=== PATIENT | male | born 1940 | race Caucasian/White ===

== ENCOUNTER 2016-12-29 09:53 | Emergency (ER) | payer OTHER ==
[2016-12-29 10:00] VITALS: BP 124/55; PULSE 72; TEMP 97.7; BMI 18.2
--- NOTE | 2016-12-29 10:24 | PDOC ---
History of Present Illness - General History Source: Patient Exam Limitations: No Limitations - History of Present Illness Initial Comments: 12/29/16 10:32 The patient is a 76 year old female with significant past medical history of hypertension, hyperlipidemia, CAD, ESRD on hemodialysis / who presents to the ED with 1 day of right testicular pain. Patient reports he was watching television yesterday when he started to developed pain to the right testicular region. After using the bathroom, his pain worsened. He denies lifting heavy objects or trauma to the area. Patient states he completed his last dialysis session yesterday. The patient denies fever, chills, cough, SOB, chest pain, and palpitations. The patient denies abdominal pain, nausea, vomiting, and diarrhea. The patient denies dysuria, hematuria, urgency, and frequency. Allergies: NKDA Social History: No alcohol, tobacco, or drug use reported. Past Surgical History: CABG PCP: Dr. Negro Hidalgo Fountain Clerk: Dr. Mei Vascular Surgeon: Dr. Georges Hollingsworth <Danielle Mock - Last Filed: 12/29/16 10:36> <Tamanna Spencer - Last Filed: 12/29/16 21:14> - General Chief Complaint: Pain Stated Complaint: PAIN Time Seen by Provider: 12/29/16 10:01 Past History <Danielle Mock - Last Filed: 12/29/16 10:36> - Past Medical History Anemia: No Asthma: No Cancer: No Cardiac Disorders: Yes (cad) CVA: No COPD: No CHF: No Dementia: No Diabetes: No Dialysis: Yes (lt arm fistula, m-w-f h.d) GI Disorders: No Disorders: No HTN: No Hypercholesterolemia: No Liver Disease: No Seizures: No Thyroid Disease: No - Surgical History Abdominal Surgery: No Appendectomy: No Cardiac Surgery: Yes (quad bipass) Lung Surgery: No Neurologic Surgery: No Orthopedic Surgery: No - Immunization History Immunization Up to Date: No - Psycho/Social/Smoking Cessation Hx Anxiety: No Suicidal Ideation: No Smoking History: Never smoked Have you smoked in the past 12 months: Yes Number of Cigarettes Smoked Daily: 5 Information on smoking cessation initiated: No 'Breaking Loose' booklet given: 01/27/14 Hx Alcohol Use: No Drug/Substance Use Hx: No Substance Use Type: None <Tamanna Spencer - Last Filed: 12/29/16 21:14> - Past Medical History Allergies/Adverse Reactions: Allergies Allergy/AdvReac Type Severity Reaction Status Date / Time No Known Allergies Allergy Verified 12/29/16 09:54 Home Medications: Ambulatory Orders Pantoprazole Sodium [Protonix -] 40 mg PO DAILY 03/14/16 Calcium (Oyster Shell) [Os-Reuben 500MG -] 500 mg PO BID #60 tablet 03/22/16 Calcium Acetate [Phoslo -] 667 mg PO TIDCM capsule 03/22/16 Atorvastatin Ca [Lipitor] 40 mg PO HS #30 tablet 05/02/16 Oxycodone HCl/Acetaminophen [Percocet 5-325 mg Tablet] 1 tab PO Q6H PRN #12 tablet MDD 4 tabs 12/29/16 Review of Systems - Review of Systems Able to Perform ROS?: Yes Comments:: 12/29/16 10:32 GENERAL/CONSTITUTIONAL: No fever or chills. No weakness. HEAD, EYES, EARS, NOSE AND THROAT: No change in vision. No ear pain or discharge. No sore throat. CARDIOVASCULAR: No chest pain or shortness of breath. RESPIRATORY: No cough, wheezing, or hemoptysis. GASTROINTESTINAL: No nausea, vomiting, diarrhea or constipation. GENITOURINARY: +right testicular pain No dysuria, frequency, or change in urination. MUSCULOSKELETAL: No joint or muscle swelling or pain. No neck or back pain. SKIN: No rash NEUROLOGIC: No headache, vertigo, loss of consciousness, or change in strength/ sensation. ENDOCRINE: No increased thirst. No abnormal weight change. HEMATOLOGIC/LYMPHATIC: No anemia, easy bleeding, or history of blood clots. ALLERGIC/IMMUNOLOGIC: No hives or skin allergy. <Danielle Mock - Last Filed: 12/29/16 10:36> *Physical Exam - Vital Signs Last Vital Signs Temp Pulse Resp BP Pulse Ox 97.7 F 72 18 124/55 97 12/29/16 09:54 12/29/16 09:54 12/29/16 09:54 12/29/16 09:54 12/29/16 09:54 - Physical Exam Comments: 12/29/16 10:33 GENERAL: Awake, alert, and fully oriented, in mild distress and appears uncomfortable HEAD: No signs of trauma EYES: PERRLA, EOMI, sclera anicteric, conjunctiva clear ENT: Auricles normal inspection, hearing grossly normal, nares patent, oropharynx clear without exudates. Moist mucosa NECK: Normal ROM, supple, no lymphadenopathy, JVD, or masses LUNGS: Breath sounds equal, clear to auscultation bilaterally. No wheezes, and no crackles HEART: Regular rate and rhythm, normal S1 and S2, no murmurs, rubs or gallops ABDOMEN: Soft, nontender, normoactive bowel sounds. No guarding, no rebound. No masses : Right testicular swelling and exquisite tenderness EXTREMITIES: Normal range of motion, no edema. No clubbing or cyanosis. No cords, erythema, or tenderness NEUROLOGICAL: Cranial nerves II through XII grossly intact. Normal speech SKIN: Warm, Dry, normal turgor, no rashes or lesions noted. <Danielle Mock - Last Filed: 12/29/16 10:36> - Vital Signs Last Vital Signs Temp Pulse Resp BP Pulse Ox 97.7 F 72 18 124/55 97 12/29/16 09:54 12/29/16 09:54 12/29/16 09:54 12/29/16 09:54 12/29/16 09:54 <Tamanna Spencer - Last Filed: 12/29/16 21:14> ED Treatment Course - LABORATORY CBC & Chemistry Diagram: 12/29/16 10:37 12/29/16 10:37 <Tamanna Spencer - Last Filed: 12/29/16 21:14> Medical Decision Making - Medical Decision Making Ultrasound results discussed with patient. Recommended outpatient urology f/u to address the hydroceles. Rx for percocet if needed for pain. Stable for DC home. <Tamanna Spencer - Last Filed: 12/29/16 21:14> *DC/Admit/Observation/Transfer - Attestations Scribe Attestion: 12/29/16 10:33 Documentation prepared by Danielle Mock, acting as medical imaging director for Tamanna Spencer MD, MD <Danielle Mock - Last Filed: 12/29/16 10:36> - Discharge Dispostion Admit: No <Tamanna Spencer - Last Filed: 12/29/16 21:14> Diagnosis at time of Disposition: Hydrocele Qualifiers: Hydrocele type: unspecified Qualified Code(s): N43.3 - Hydrocele, unspecified - Discharge Dispostion Disposition: HOME Condition at time of disposition: Stable - Prescriptions Prescriptions: Oxycodone HCl/Acetaminophen [Percocet 5-325 mg Tablet] 1 tab PO Q6H PRN #12 tablet MDD 4 tabs PRN Reason: Pain - Referrals Referrals: Negro Hidalgo MD [Primary Care Provider] - Buddy Cornelius MD [Staff Physician] - - Patient Instructions Printed Discharge Instructions: DI for Hydrocele-Adult
[2016-12-29] MEDS ORDERED: morphine CARPU-JECT 4 MG/1 ML DISP.SYRIN IVPUSH ONE (10:26)
[2016-12-29] MEDS ORDERED: morphine CARPU-JECT 4 MG/1 ML DISP.SYRIN ONE (10:38)
[2016-12-29 10:55] LABS: BASOPHIL 0.4 % (0-2.0); EOSINOPHIL 0.3 % (0-4.5); MCH 32.2 pg (25.7-33.7); MCHC 33.7 g/dl (32.0-35.9); MEAN CELL VOLUME 95.3 fl (80-96); MEAN PLT VOLUME 8.2 fl (7.5-11.1); NEUTROPHILS 79.1 % (42.8-82.8); PLATELET COUNT 174 K/MM3 (134-434); RDW 14.7 % (11.9-15.9); WHITE BLOOD COUNT 10.4 K/mm3 (4.0-10.0)
[2016-12-29 11:18] LABS: ALBUMIN 3.6 g/dl (3.4-5.0); BILIRUBIN,TOTAL 0.8 mg/dL (0.2-1.0); CALCIUM 8.9 mg/dL (8.5-10.1); TOT PROT 7.2 g/dl (6.4-8.2)
[2016-12-29 11:23] LABS: INR 1.08 (0.82-1.09); PROTHROMBIN TIME (PATIENT) 11.9 SEC (9.98-11.88)
[2016-12-29 11:36] LABS: CREATININE 8.7 mg/dL (0.7-1.3)
== END 2016-12-29 12:40 | disposition home or self-care (01) ==
LOC: JER 09:53
PROC: 3E033NZ Introduction of Analgesics, Hypnotics, Sedatives into Peripheral Vein, Percutaneous Approach (ICD-10-PCS; principal; 2016-12-29)
DX: N43.3 Hydrocele, unspecified (principal); I25.10 Atherosclerotic heart disease of native coronary artery without angina pectoris; I13.11 Hypertensive heart and chronic kidney disease without heart failure, with stage 5 chronic kidney disease, or end stage renal disease; N18.6 End stage renal disease; Z99.2 Dependence on renal dialysis; Z95.1 Presence of aortocoronary bypass graft; Z87.891 Personal history of nicotine dependence; E78.5 Hyperlipidemia, unspecified; E78.00 Pure hypercholesterolemia, unspecified
CPT/HCPCS: 36415; 76870-TC; 80053; 83605; 85025; 85610; 96374; 99283-25

== ENCOUNTER 2018-06-03 16:00 | Inpatient (IN) | payer OTHER ==
[2018-06-03 16:20] VITALS: BMI 20.7
--- NOTE | 2018-06-03 16:22 | PDOC ---
Rapid Medical Evaluation Chief Complaint: Weakness Time Seen by Provider: 06/03/18 16:14 Medical Evaluation: Allergies Allergy/AdvReac Type Severity Reaction Status Date / Time No Known Allergies Allergy Verified 06/03/18 16:14 Vital Signs Temp Pulse Resp BP Pulse Ox 97.5 F L 67 20 164/88 95 06/03/18 16:14 06/03/18 16:14 06/03/18 16:14 06/03/18 16:14 06/03/18 16:14 06/03/18 16:20 I have performed a brief in-person evaluation of this patient. The patient presents with a chief complaint of: fatigue and chest pain X 2 days , ESRD on HD, known CAD with CABG Pertinent physical exam findings:ill appearing with coarse rhonchi in lung bases I have ordered the following:ekg, labs and cxr ordered The patient will proceed to the ED for further evaluation. Discharge Disposition - Diagnosis Chest pain Qualifiers: Chest pain type: unspecified Qualified Code(s): R07.9 - Chest pain, unspecified - Referrals - Patient Instructions - Post Discharge Activity
--- NOTE | 2018-06-03 16:35 | PDOC ---
History of Present Illness - General Chief Complaint: Weakness Stated Complaint: ELEVATED BP, DIZZINESS Time Seen by Provider: 06/03/18 16:14 History Source: Patient, Family Exam Limitations: No Limitations - History of Present Illness Initial Comments: 77 y/o male presenting to [facility] ED via private auto with chief complaints of generalized weakness and new onset exertional chest pain. Pt states he began to feel generalized weakness and global lack of energy since dialysis run yesterday. States he may have blacked out but denies falling to floor or other trauma; family endorses that the pt stated similar to them. Complaining of exertional chest pain with shortness of breath for the past two days. Pain originates in mid-chest and radiates to jaw, both arms, and abdomen. Able to lay flat at night, no pretibial edema, but endorses paroxysmal nocturnal dyspnea. H/o CAD w/ cardiac bypass surgery 2 years ago. Complaining of nausea/vomiting/diarrhea; described as acute on chronic for past two years; current episode lasting approx. 1 week; described as non-bloody. Was previously admitted to [facility] for similar one month ago. H/o ESRD on dialysis M, W, F; last run yesterday; normal 1-2L full run. H/o EtOH abuse; still drinking occasionally per family. Family states pt is taking an antibiotic for GI symptoms; pharmacist reports pt received 4 days of Augmentin in April but no other abx. Complaining of spontaneous bruising on abdomen and lower extremities. Son noticed starting one week ago. Pt denies trauma. Pt occasionally takes baby ASA. Denies anti-coagulants. Past History - Past Medical History Allergies/Adverse Reactions: Allergies Allergy/AdvReac Type Severity Reaction Status Date / Time No Known Allergies Allergy Verified 06/03/18 16:14 Home Medications: Ambulatory Orders Calcium (Oyster Shell) [Os-Reuben 500MG -] 500 mg PO BID #60 tablet 03/22/16 Anemia: No Asthma: No Cancer: No Cardiac Disorders: Yes (cad) CVA: No COPD: No CHF: No Dementia: No Diabetes: No Dialysis: Yes (lt arm fistula, m-w-f h.d) GI Disorders: No Disorders: No HTN: No Hypercholesterolemia: No Liver Disease: No Seizures: No Thyroid Disease: No - Surgical History Abdominal Surgery: No Appendectomy: No Cardiac Surgery: Yes (quad bipass) Lung Surgery: No Neurologic Surgery: No Orthopedic Surgery: No - Immunization History Immunization Up to Date: No - Suicide/Smoking/Psychosocial Hx Smoking History: Former smoker Have you smoked in the past 12 months: No Number of Cigarettes Smoked Daily: 5 Information on smoking cessation initiated: No 'Breaking Loose' booklet given: 01/27/14 Hx Alcohol Use: No Drug/Substance Use Hx: No Substance Use Type: None Review of Systems - Review of Systems Able to Perform ROS?: Yes Is the patient limited Bengali proficient: No Constitutional: Yes: Chills, Diaphoresis, Malaise, Weakness. No: Fever HEENTM: Yes: Throat Pain. No: Blurred Vision, Recent change in vision, Mouth Pain Respiratory: Yes: Cough, Shortness of Breath, SOB with Exertion, Productive cough (Yellow sputum without color change. ). No: Orthopnea, SOB at Rest, Hemoptysis Cardiac (ROS): Yes: Chest Pain, Syncope, Chest Tightness. No: Edema, Lightheadedness, Palpitations ABD/GI: Yes: Diarrhea, Nausea, Vomiting, Abdominal cramping. No: Blood Streaked Bowels, Rectal Bleeding, Tarry Stools : Yes: Burning. No: Dysuria, Discharge, Frequency Musculoskeletal: Yes: Muscle Weakness Integumentary: Yes: Bruising. No: Rash Neurological: Yes: Headache, Tingling, Weakness, Unsteady Gait, Dizziness Hematologic/Lymphatic: No: Anemia, Blood Clots, Easy Bleeding *Physical Exam - Vital Signs Last Vital Signs Temp Pulse Resp BP Pulse Ox 97.5 F L 67 20 164/88 95 06/03/18 16:14 06/03/18 16:14 06/03/18 16:14 06/03/18 16:14 06/03/18 16:14 - Physical Exam Comments: Constitutional: Cachexic and sickly male appearing without acute life threat. Found semi-fowlers in hospital bed. Alert and oriented x4. Answered all questions but with vague and rambling with cantankerous affect. Speech was non- labored, non-pressured. Head: normocephalic and atraumatic. Eyes: PERRL. Sclerae white. Conjunctiva moist and not injected. NOSE: No nasal discharge. THROAT: Oral cavity and pharynx normal. No inflammation, swelling, exudate, or lesions. Teeth and gingiva in very poor condition. Neck: Supple, trachea is midline. No JVD. Cardiovascular: Regular rate and regular rhythm. No murmur, rubs, clicks, or gallops. Peripheral pulses: Radial pulses full Respiratory: Rhonchi with mild expiratory wheezing diffusely, worse in posterior lobes. No stridor. Gastrointestinal: abdomen is soft, non-distended, subjective tenderness globally without grimace, withdrawal, guarding, or rebound. No peritoneal signs. No pulsatile masses. Neuro: Alert and oriented. Moving all four extremities spontaneously. Psych: Affect: cantankerous. Mood: tired and angry. Skin: Warm and dry. Mild jaundice. Multiple small (1-2cm) round bruises covering epigastrum, upper abd quadrants, and on lower extremities; none on chest, arms, or head. Dialysis graft in upper left arm. Lymphatics: No cervical or supraclavicular nodes palpated. Rectal: Good sphincter tone with large non-bleeding external hemorrhoid. Prostate is not tender, enlarged, boggy, or nodular. RN chaperoned exam. Hemoccult card negative. ED Treatment Course - LABORATORY CBC & Chemistry Diagram: 06/03/18 17:10 06/03/18 17:10 Medical Decision Making - Medical Decision Making 77 y/o male with CAD s/p CABG, ESRD on hemodialysis, h/o EtOH abuse, acute on chronic nausea, vomiting, diarrhea presenting with laundry list of vague complaints, most concerning is exertional chest pain, SOB, and generalized weakness. Afebrile. Vitals remarkable for hypertension without tachycardia; no tachypnea or hypoxia. PE revealing for mild jaundice, rhonchi, and generalized non-peritoneal abdominal pain. Concern for ACS versus CHF in setting of cardiac history and anginal symptoms. HEART Score base of 5 w/o knowing troponin. Concern for liver failure with generalized fatigue, jaundice, and spontaneous bruising. Concern for metabolic disturbance causing fatigue and muscle pain. Concern for anemia given fatigue. Will obtain CBC, CMP, Calcium, Mag, Phos, Lipase, Lactic Acid, Coags, and troponin. Ordered EKG and CXR. 17:25 Multiple labs hemolyzed per lab. Reordered. CXR suggestive for CHF. Pt is not hypoxic or tachypnic at room air. Pharmacist reports pt was prescribed a four day course of Augmentin in April. No other antibiotic therapy. Monotype Caster confirmed pt is not receiving abx therapy with dialysis. Pt signed out to Dr. Masterson. Will follow up on pending labs. Continued concern for metabolic derangement versus liver failure versus angina versus CHF. Likely to admit for chest pain rule out. *DC/Admit/Observation/Transfer Diagnosis at time of Disposition: Chest pain Qualifiers: Chest pain type: unspecified Qualified Code(s): R07.9 - Chest pain, unspecified - Referrals Referrals: Negro Hidalgo MD [Primary Care Provider] - - Patient Instructions - Post Discharge Activity
--- NOTE | 2018-06-03 17:03 | PDOC ---
Attending Attestation - Physicial Exam PE: 06/03/18 17:57 ROS: A complete review of 10 out of 10 review of systems is taken and is negative apart from what is previously mentioned below and in the HPI. Vitals: Triage vital signs reviewed General Appearance: No acute distress, well nourished, well developed Head: Atraumatic Eyes: Pupils equal reactive round, extraocular movement intact Ears: TM's normal bilaterally Nose: Nares patent bilaterally; no nasal congestion Throat: Posterior oropharynx without erythema, mucous membranes moist Neck: Supple; No nuchal rigidity Chest Wall: Nontender Cardiac: Regular rate and rhythm, no murmurs, no rubs, no gallops Lungs: Clear to auscultation bilateral, good air movement bilaterally Abdomen: Soft, nondistended, normal bowel sounds, nontender to palpation Genitourinary: Rectal: Exam deferred Extremities: Full range of motion to all extremities, no cyanosis, clubbing, or edema Skin: Warm and dry, no rashes or lesions, no rash, no petechiae Neuro: AOX3; Cranial Nerves 2-12 grossly intact, Strength intact to all extremities, Sensation intact to all extremities, gait normal Psych: Normal mood, normal affect - Medical Decision Making 06/03/18 17:57 Documentation prepared by Alexus Coronado, acting as medical records tech for Khanh Morillo MD <Alexus Coronado - Last Filed: 06/03/18 17:57> - Resident Resident Name: Eddy Green - ED Attending Attestation I have performed the following: I have examined & evaluated the patient, The case was reviewed & discussed with the resident, I agree w/resident's findings & plan, Exceptions are as noted - HPI HPI: 75 years old past medical history significant for hypertension hyperlipidemia CAD end-stage renal disease on dialysis Saturday, past surgical history significant for CABG, presents to the emergency department with exertional chest discomfort and shortness of breath for the last several days. Substernal radiates to jaw's arms abdomen able to lie flat at night, symptoms are intermittent with exertion alleviated somewhat by rest Also complaining of chronic nausea vomiting diarrhea has been on antibiotics for this? Does not know name of antibiotic or exactly what is being treated for. - Medical Decision Making Patient with multiple risk factors. Heart score 5. Benign abdominal examination. We'll admit to medicine for further evaluation of chest pain and possible mild CHF. <Khanh Morillo - Last Filed: 06/03/18 19:31> Heart Score/ECG Review - ECG Impressions Comment:: 06/03/18 19:22 EKG performed at 1509. Demonstrates normal sinus rhythm no ST elevations or T- wave inversions Interpreted by me. <Khanh Morillo - Last Filed: 06/03/18 19:31>
[2018-06-03 17:17] LABS: HEMATOCRIT 33.1 % (35.4-49); HEMOGLOBIN 10.9 GM/dL (11.7-16.9); MCH 30.2 pg (25.7-33.7); MEAN CELL VOLUME 91.4 fl (80-96); MEAN PLT VOLUME 9.8 fl (7.5-11.1); PLATELET COUNT 124 K/MM3 (134-434); RBC 3.62 M/mm3 (4.00-5.60); RDW 18.3 % (11.9-15.9); WHITE BLOOD COUNT 5.7 K/mm3 (4.0-10.0)
[2018-06-03 17:42] LABS: INR 1.09 (0.82-1.09); PROTHROMBIN TIME (PATIENT) 12.3 SEC (9.7-13.0)
--- NOTE | 2018-06-03 19:22 | PDOC ---
*Physical Exam - Vital Signs Last Vital Signs Temp Pulse Resp BP Pulse Ox 97.5 F L 67 20 164/88 95 06/03/18 16:14 06/03/18 16:14 06/03/18 16:14 06/03/18 16:14 06/03/18 16:14 - Physical Exam Comments: 06/03/18 19:17 Care endorsed to me by Dr. Green at the end of his shift. Medically CAD a/p CABG 2 years ago, ESRD on HD MWF with last tx yesterday, EtOH dependence, c/o new-onset CP with associated SOB as well as PND, no leg edema. All-over body aches. Also Also c/o bruising on upper abdomen, BLE. N/V/D (NBNB) which is chronic but worsened x1 week. Was on Augmentin in April. CXR with e/o CHF. Mild anemia on CBC, mild leukopenia. Pending chemistries (first set hemolyzed). To be admitted. Heart Score/ECG Review - History History: Highly suspicious - Electrocardiogram EKG: Normal - Age Age: >/= 65 - Risk Factors Risk Factors Heart Score: Yes Hx Hypercholesterolemia, Yes Hx Hypertension, Yes Smoking History, Yes Positive family hx of cardiac disease Based on the list above the patient has:: >/=3 risk factors or Hx atherosclerotic disease #1 06/03/18 19:21 SR with RBBB and no acute ST-T changes. ED Treatment Course - LABORATORY CBC & Chemistry Diagram: 06/03/18 17:10 06/03/18 18:15 - ADDITIONAL ORDERS Additional order review: Laboratory Results 06/03/18 06/03/18 06/03/18 18:20 18:15 17:10 PT with INR INR PTT (Actin FS) 31.3 Sodium Potassium Chloride Carbon Dioxide Anion Gap BUN Creatinine Creat Clearance w eGFR Random Glucose Calcium Total Bilirubin AST ALT Alkaline Phosphatase Creatine Kinase Troponin I Total Protein Albumin Lipase Cancelled Stool Occult Blood Negative 06/03/18 06/03/18 17:10 17:10 PT with INR 12.30 INR 1.09 PTT (Actin FS) Sodium Cancelled Potassium Cancelled Chloride Cancelled Carbon Dioxide Cancelled Anion Gap Cancelled BUN Cancelled Creatinine Cancelled Creat Clearance w eGFR Cancelled Random Glucose Cancelled Calcium Cancelled Total Bilirubin Cancelled AST Cancelled ALT Cancelled Alkaline Phosphatase Cancelled Creatine Kinase Cancelled Troponin I Cancelled Total Protein Cancelled Albumin Cancelled Lipase Stool Occult Blood 06/03/18 17:10 RBC 3.62 L MCV 91.4 MCHC 33.0 RDW 18.3 H MPV 9.8 D Medical Decision Making - Medical Decision Making 06/03/18 19:56 Laboratory Tests 06/03/18 06/03/18 06/03/18 17:10 17:10 17:10 WBC 5.7 RBC 3.62 L Hgb 10.9 L Hct 33.1 L MCV 91.4 MCH 30.2 MCHC 33.0 RDW 18.3 H Plt Count 124 L D MPV 9.8 D PT with INR 12.30 INR 1.09 PTT (Actin FS) Sodium Cancelled Potassium Cancelled Chloride Cancelled Carbon Dioxide Cancelled Anion Gap Cancelled BUN Cancelled Creatinine Cancelled Creat Clearance w eGFR Cancelled Random Glucose Cancelled Lactic Acid Calcium Cancelled Total Bilirubin Cancelled AST Cancelled ALT Cancelled Alkaline Phosphatase Cancelled Creatine Kinase Cancelled Troponin I Cancelled Total Protein Cancelled Albumin Cancelled Lipase Stool Occult Blood 06/03/18 06/03/18 06/03/18 17:10 18:15 18:15 WBC RBC Hgb Hct MCV MCH MCHC RDW Plt Count MPV PT with INR INR PTT (Actin FS) 31.3 Sodium Potassium Chloride Carbon Dioxide Anion Gap BUN Creatinine Creat Clearance w eGFR Random Glucose Lactic Acid 0.8 Calcium Total Bilirubin AST ALT Alkaline Phosphatase Creatine Kinase Troponin I Total Protein Albumin Lipase Cancelled Stool Occult Blood 06/03/18 06/03/18 06/03/18 18:15 18:20 18:44 WBC RBC Hgb Hct MCV MCH MCHC RDW Plt Count MPV PT with INR INR PTT (Actin FS) Sodium 142 Potassium 4.9 Chloride 103 Carbon Dioxide 28 Anion Gap 11 BUN 43 H Creatinine 8.0 H* Creat Clearance w eGFR 6.61 Random Glucose 89 Lactic Acid Calcium 8.6 Total Bilirubin 0.6 AST 31 D ALT 35 D Alkaline Phosphatase 145 H Creatine Kinase 98 Troponin I 0.20 H D Total Protein 6.5 Albumin 3.2 L Lipase Stool Occult Blood Negative Patient a bit short of breath. Ordered is NTG paste, Lasix IV push 40 mg, ASA 324. 06/03/18 19:57 HEART score indicated Pt is higher risk and should be managed in hospital with cardiology consult. The Pt is unsafe for discharge at this time. They require further hospital observation, workup, and treatment. Microblog sent to [facility] for admission (admitting for Dr. Eden now). Spoke with Jose Alejandro Poe. Patient admitted to Tele to Dr. Geronimo. Decision to Admit order placed. *DC/Admit/Observation/Transfer Diagnosis at time of Disposition: ESRD (end stage renal disease), Elevated troponin Chest pain Qualifiers: Chest pain type: unspecified Qualified Code(s): R07.9 - Chest pain, unspecified CHF exacerbation Qualifiers: Heart failure type: unspecified Qualified Code(s): I50.9 - Heart failure, unspecified - Discharge Dispostion Condition at time of disposition: Guarded Decision to Admit order: Yes - Referrals Referrals: Negro Hidalgo MD [Primary Care Provider] - - Patient Instructions - Post Discharge Activity
[2018-06-03 19:32] LABS: ALBUMIN 3.2 g/dl (3.4-5.0); ANION GAP 11 (8-16); BILIRUBIN,TOTAL 0.6 mg/dL (0.2-1.0); BLOOD UREA NITROGEN 43 mg/dL (7-18); CALCIUM 8.6 mg/dL (8.5-10.1); CHLORIDE 103 mmol/L (98-107); CO2 28 mmol/L (21-32); GLUCOSE,RANDOM 89 mg/dL (74-106); POTASSIUM 4.9 mmol/L (3.5-5.1); SGOT/AST 31 U/L (15-37); SGPT/ALT 35 U/L (12-78); SODIUM 142 mmol/L (136-145)
[2018-06-03 19:35] LABS: ALK PHOS 145 U/L (45-117); TOT PROT 6.5 g/dl (6.4-8.2)
[2018-06-03] MEDS ORDERED: NITROGLYCERIN 2% OINTMENT - 1GM PACKET TD ONE ×2 (19:54→20:47)
[2018-06-03] MEDS ORDERED: FUROSEMIDE 40 MG/4 ML INJECTABLE VIAL IVPUSH ONE ×2 (19:56→21:44)
[2018-06-03] MEDS ORDERED: ASPIRIN 325 MG TABLET PO ONE (19:57)
[2018-06-03] MEDS ORDERED: FUROSEMIDE 40 MG/4 ML INJECTABLE VIAL ONE ×2 (20:47→21:48)
[2018-06-03] MEDS ORDERED: ASPIRIN 325 MG TABLET ONE (20:47)
[2018-06-03] MEDS ORDERED: NITROGLYCERIN 25MG/D5W 250ML 25 MG/250 ML ML IVPB ONE (21:49)
[2018-06-03 22:01] LABS: ARTERIAL BLD GAS O2 SATURATION 97.6 % (90-98.9); ARTERIAL BLOOD GAS BASE EXCESS 2.1 meq/l (-2-2); ARTERIAL BLOOD GAS PCO2 35.9 mmHg (35-45); ARTERIAL BLOOD GAS PO2 90.4 mmHg (70-100); ARTERIAL BLOOD GAS pH 7.46 (7.35-7.45)
[2018-06-03 22:02] LABS: ALLENS TEST POSITIVE
[2018-06-03] MEDS: NITROGLYCERIN 25MG/D5W 250ML 25 MG/250 ML ML IVPB SCH (22:02)
--- NOTE | 2018-06-03 22:15 | PN ---
Progress Note, Physician History of Present Illness: 7 y/o male presenting to [facility] ED via private auto with chief complaints of generalized weakness and new onset exertional chest pain. Pt states he began to feel generalized weakness and global lack of energy since dialysis run yesterday. States he may have blacked out but denies falling to floor or other trauma; family endorses that the pt stated similar to them. Complaining of exertional chest pain with shortness of breath for the past two days. Pain originates in mid-chest and radiates to jaw, both arms, and abdomen. Able to lay flat at night, no pretibial edema, but endorses paroxysmal nocturnal dyspnea. H/o CAD w/ cardiac bypass surgery 2 years ago. Complaining of nausea/vomiting/diarrhea; described as acute on chronic for past two years; current episode lasting approx. 1 week; described as non-bloody. Was previously admitted to [facility] for similar one month ago. H/o ESRD on dialysis M, W, F; last run yesterday; normal 1-2L full run. H/o EtOH abuse; still drinking occasionally per family. Family states pt is taking an antibiotic for GI symptoms; pharmacist reports pt received 4 days of Augmentin in April but no other abx. Complaining of spontaneous bruising on abdomen and lower extremities. Son noticed starting one week ago. Pt denies trauma. Pt occasionally takes baby ASA. Denies anti-coagulants. - Current Medication List Current Medications: Active Medications Nitroglycerin/Dextrose (Nitroglycerin 25mg/D5w 250ml) 25 mg in 250 mls @ 6 mls/ hr IVPB TITR TL Last Admin: 06/03/18 22:02 Dose: 10 mcg/min, 6 mls/hr - Objective Vital Signs: Vital Signs Temperature 97.5 F L 06/03/18 16:14 Pulse Rate 67 06/03/18 16:14 Respiratory Rate 20 06/03/18 16:14 Blood Pressure 164/88 06/03/18 16:14 O2 Sat by Pulse Oximetry (%) 95 06/03/18 16:14 Labs: CBC, BMP 06/03/18 17:10 06/03/18 18:15 INR, PTT INR 1.09 (0.82-1.09) 06/03/18 17:10
[2018-06-03] MEDS ORDERED: ALBUTEROL SO4 2.5/IPRATROPIUM 0.5 INH SOL 3 ML VIAL.NEB. NEB PRN (22:21)
--- NOTE | 2018-06-03 22:34 | PN ---
Teaching Attending Note Name of Resident: Edgar Ansari ATTENDING PHYSICIAN STATEMENT I saw and evaluated the patient. I reviewed the resident's note and discussed the case with the resident. I agree with the resident's findings and plan as documented. SUBJECTIVE: Patient is a 77 year old man with history of hyperlipidemia, hypertension, alcohol abuse, CAD a/p CABG 2 years ago, cardiac stents, tobacco use and ESRD on HD MWF with last hemodialysis yesterday, presents with chest pain with associated SOB as well as PND for two days. Also has generalized body aches as well as bruising on upper abdomen, and legs. Says he began to feel generalized weakness and global lack of energy since after hemodialysis. Thinks he may have blacked out but denies falling to floor or other trauma. In the past one week , he has had worsening of nausea/vomiting/diarrhea - problems he has had for about 2 years. Was recently admitted to [facility] for similar issues one month ago. In the ER his symptoms progressed and he was started on BIPAP and is being admitted to the ICU as case of NSTEMI and possbile acute CHF , ESRD with fluid overload. In March 2016, ECHO showed normal LVEF. OBJECTIVE: Alert and in respiratory distress Vital Signs Period Temp Pulse Resp BP Sys/Aparicio Pulse Ox Last 24 Hr 97.5 F-98.2 F 67-67 20-20 164-179/78-88 95-100 HEENT: No Jaundice, eye redness or discharge, PERRLA, EOMI. Normocephalic, atraumatic. External ears are normal and hearing is grossly intact. No nasal discharge. Neck: Supple, nontender. No palpable adenopathy or thyromegaly. No JVD Chest: Good effort. Clear to auscultation and percussion. Heart: Regular. No S3, rub or murmur Abdomen: Not distended, soft, RUQ tenderness; hepatomegaly. Bruises on abdomen. No rebound or guarding. Normoactive bowel sounds. Ext: Peripheral pulses intact. No leg edema. Left upper arm AV graft. Bruises on lower extremity. Skin: Warm and dry. No petechiae, rash or ecchymosis. Neuro: Alert. Oriented x3. CN 2-12 grossly intact. Sensation grossly intact in all four extremities and DTR are symmetric. Current Medications Generic Name Dose Route Start Last Admin Trade Name Freq PRN Reason Stop Dose Admin Albuterol/Ipratropium 1 amp 06/03/18 22:21 Duoneb - NEB Q4H PRN SHORTNESS OF BREATH Aspirin 325 mg 06/04/18 10:00 Asa - PO DAILY TL Heparin Sodium (Porcine) 1,000 unit 06/03/18 23:35 Heparin - IVPUSH PRN PRN Heparin Heparin Sodium (Porcine) 5,000 unit 06/03/18 23:35 Heparin - IVPUSH PRN PRN Heparin Nitroglycerin/Dextrose 25 mg in 250 mls @ 6 mls/hr 06/03/18 21:45 06/03/18 22 :02 Nitroglycerin 25mg/D5w 250ml IVPB 10 mcg/min TITR TL 6 mls/hr Administration 10 MCG/MIN HEPARIN SOD,PORK IN 0.45% NACL 25,000 units in 500 mls @ 20 mls/hr 06/03/18 23 :45 Heparin-1/2ns 25,000 Units/500 IVPB TITR TL Protocol 1,000 UNIT/HR Lisinopril 10 mg 06/03/18 23:45 Prinivil PO BID [facility] Metoprolol Tartrate 2.5 mg 06/03/18 23:45 Lopressor Injection - IVPUSH Q8H [facility] Home Medications Medication Instructions Recorded Calcium (Oyster Shell) [Os-Reuben 500 mg PO BID #60 tablet 03/22/16 500MG -] Abnormal Lab Results 06/03/18 06/03/18 06/03/18 17:10 18:15 18:44 RBC 3.62 L Hgb 10.9 L Hct 33.1 L RDW 18.3 H Plt Count 124 L D ABG pH ABG O2 Content ABG Base Excess BUN 43 H Creatinine 8.0 H* Alkaline Phosphatase 145 H Troponin I 0.20 H D B-Natriuretic Peptide Albumin 3.2 L 06/03/18 06/03/18 06/03/18 21:45 22:10 22:10 RBC Hgb Hct RDW Plt Count ABG pH 7.46 H ABG O2 Content 11.8 L ABG Base Excess 2.1 H BUN Creatinine Alkaline Phosphatase Troponin I 0.20 H B-Natriuretic Peptide > 556059.00 H Albumin ASSESSMENT AND PLAN: 1. NSTEMI and Acute CHF - CXR shows pulmonary congestion with mild cardiomegaly. Though ESRD may explain elevated troponin, persistent chest pain coupled with his multiple risk factors suggest he may have NSTEMI. No acute ST- T wave changes on EKG. Cardiology consulted and they recommend IV heparin drip, beta blockers, ACEI, asprin, and lipitor. Get ECHO, trend troponin, repeat EKG and monior him overnight in the ICU. Will give high dose IV lasix to treat pulmonary edema - may need gentle dialytic ultrafiltration if lasix fails to work. Will consult nephrology. 2. Tobacco Use We will provide patient all the necessary assistance to facilitate smoking cessation and prescribe Nicotine patch. 3. Alcohol abuse - Implement [facility] alcohol withdrawal protocol and fall precautions. Treat with thiamine and folic acid and monitor electrolytes (Ca,Mg, K,P). Acid Purifier patient about abstaining from alcohol and refer to alcohol detox upon discharge. 4. Bruises on abdomen and legs - Etiology unclear. May be related to low platelets. Will monitor closely. 5. DVT prophylaxis - On IV Heparin drip 6. Advance directives - Full code
[2018-06-03] MEDS ORDERED: MELATONIN 5 MG TABLETS PO ONE (23:16)
[2018-06-03] MEDS ORDERED: HEPARIN NA (PORCINE) 5,000 UNITS/ML 1ML VIAL IVPUSH PRN ×2 (23:35)
[2018-06-03] MEDS ORDERED: HEPARIN SOD,PORK IN 0.45% NACL 25,000 UNITS/500 ML INFUS.BAG IVPB SCH (23:45)
[2018-06-03] MEDS ORDERED: LISINOPRIL 10 MG TABLET (FP) PO SCH (23:45)
--- NOTE | 2018-06-03 23:52 | HP ---
CHIEF COMPLAINT: PCP: HISTORY OF PRESENT ILLNESS: 77 y/o male with PMH ESRD on HD M/W/F last HD 10/03/2018, CAD s/p CABG, ETOH abuse, HTN, HLD presents with complaint of chest pain, shortness of breath and fatigue for the past two days. States that his home nurse measured his BP at home and it was 200/? while he was experiencing the chest pain. States the symptoms began together without clear enticing event. Chest pain described as sharp with pressure overlying center of chest. Able to walk approx 10 feet which exacerbates the pain and shortness of breath. Pain is allleviated with rest. Patient endorses cough with yellow sputum for past three days. Denies sick contacts, recent travel, or immobilization. Denies fevers, chills, palpitations, nausea, vomiting, diarrhea. ER course was notable for: (1) EKG, troponins, Furosemide 40, nitroglycerin 25, 4L NC -> BiPap (2) (3) Recent Travel: Denies PAST MEDICAL HISTORY: ESRD on HD M/W/F last HD 10/03/2018, CAD s/p CABG, ETOH abuse, HTN, HLD PAST SURGICAL HISTORY: CABG Social History: Smoking: Admits 30 pack year history Alcohol: Denies current alcohol use. Reluctant to describe past ETOH drinking. Drugs: Denies Family History: Allergies No Known Allergies Allergy (Verified 06/03/18 16:14) HOME MEDICATIONS: Home Medications Medication Instructions Recorded Calcium (Oyster Shell) [Os-Reuben 500 mg PO BID #60 tablet 03/22/16 500MG -] REVIEW OF SYSTEMS As per HPI PHYSICAL EXAMINATION Vital Signs - 24 hr 06/03/18 06/03/18 06/03/18 16:14 22:00 22:37 Temperature 97.5 F L 98.2 F Pulse Rate 67 Pulse Rate [ 67 Right Radial] Respiratory 20 20 Rate Blood Pressure 164/88 Blood Pressure 179/78 [Right Arm] O2 Sat by Pulse 95 100 100 Oximetry (%) 06/03/18 23:12 Temperature Pulse Rate Pulse Rate [ Right Radial] Respiratory Rate Blood Pressure Blood Pressure [Right Arm] O2 Sat by Pulse 100 Oximetry (%) GENERAL: Awake, alert, and fully oriented, in no some distress. HEAD: Normal with no signs of trauma. EYES: Pupils equal, round and reactive to light, extraocular movements intact, conjunctiva clear. EARS, NOSE, THROAT: Oropharynx clear without exudates. Moist mucous membranes. NECK: Normal range of motion, supple without lymphadenopathy. LUNGS: Incomplete air entry, with slight crackles and wheezes bilaterally. HEART: Regular rate and rhythm, normal S1 and S2 without murmur, rub or gallop. ABDOMEN: Soft, epigastrum tender to palpation, not distended, normoactive bowel sounds, no guarding, no rebound. EXTREMITIES: 2+ pulses, warm, well-perfused. No cyanosis. No peripheral edema. NEUROLOGICAL: Cranial nerves II-XII intact. Normal speech. PSYCHIATRIC: Cooperative. SKIN: Warm, dry, normal turgor. Laboratory Results - last 24 hr 06/03/18 06/03/18 06/03/18 17:10 17:10 17:10 WBC 5.7 RBC 3.62 L Hgb 10.9 L Hct 33.1 L MCV 91.4 MCH 30.2 MCHC 33.0 RDW 18.3 H Plt Count 124 L D MPV 9.8 D PT with INR 12.30 INR 1.09 PTT (Actin FS) Puncture Site ABG pH ABG pCO2 at Pt Temp ABG pO2 at Pt Temp ABG HCO3 ABG O2 Sat (Measured) ABG O2 Content ABG Base Excess Ruben Test O2 Delivery Device Oxygen Flow Rate PEEP Sodium Cancelled Potassium Cancelled Chloride Cancelled Carbon Dioxide Cancelled Anion Gap Cancelled BUN Cancelled Creatinine Cancelled Creat Clearance w eGFR Cancelled Random Glucose Cancelled Lactic Acid Calcium Cancelled Total Bilirubin Cancelled AST Cancelled ALT Cancelled Alkaline Phosphatase Cancelled Creatine Kinase Cancelled Troponin I Cancelled B-Natriuretic Peptide Total Protein Cancelled Albumin Cancelled Lipase Stool Occult Blood 06/03/18 06/03/18 06/03/18 17:10 18:15 18:15 WBC RBC Hgb Hct MCV MCH MCHC RDW Plt Count MPV PT with INR INR PTT (Actin FS) 31.3 Puncture Site ABG pH ABG pCO2 at Pt Temp ABG pO2 at Pt Temp ABG HCO3 ABG O2 Sat (Measured) ABG O2 Content ABG Base Excess Ruben Test O2 Delivery Device Oxygen Flow Rate PEEP Sodium Potassium Chloride Carbon Dioxide Anion Gap BUN Creatinine Creat Clearance w eGFR Random Glucose Lactic Acid 0.8 Calcium Total Bilirubin AST ALT Alkaline Phosphatase Creatine Kinase Troponin I B-Natriuretic Peptide Total Protein Albumin Lipase Cancelled Stool Occult Blood 06/03/18 06/03/18 06/03/18 18:15 18:20 18:44 WBC RBC Hgb Hct MCV MCH MCHC RDW Plt Count MPV PT with INR INR PTT (Actin FS) Puncture Site ABG pH ABG pCO2 at Pt Temp ABG pO2 at Pt Temp ABG HCO3 ABG O2 Sat (Measured) ABG O2 Content ABG Base Excess Ruben Test O2 Delivery Device Oxygen Flow Rate PEEP Sodium 142 Potassium 4.9 Chloride 103 Carbon Dioxide 28 Anion Gap 11 BUN 43 H Creatinine 8.0 H* Creat Clearance w eGFR 6.61 Random Glucose 89 Lactic Acid Calcium 8.6 Total Bilirubin 0.6 AST 31 D ALT 35 D Alkaline Phosphatase 145 H Creatine Kinase 98 Troponin I 0.20 H D B-Natriuretic Peptide Total Protein 6.5 Albumin 3.2 L Lipase Stool Occult Blood Negative 06/03/18 06/03/18 06/03/18 21:45 22:10 22:10 WBC RBC Hgb Hct MCV MCH MCHC RDW Plt Count MPV PT with INR INR PTT (Actin FS) Puncture Site Right radial ABG pH 7.46 H ABG pCO2 at Pt Temp 35.9 ABG pO2 at Pt Temp 90.4 ABG HCO3 25.4 ABG O2 Sat (Measured) 97.6 ABG O2 Content 11.8 L ABG Base Excess 2.1 H Ruben Test Positive O2 Delivery Device Nasal Oxygen Flow Rate 4l PEEP 0.0 Sodium Potassium Chloride Carbon Dioxide Anion Gap BUN Creatinine Creat Clearance w eGFR Random Glucose Lactic Acid Calcium Total Bilirubin AST ALT Alkaline Phosphatase Creatine Kinase 91 Troponin I 0.20 H B-Natriuretic Peptide > 915753.00 H Total Protein Albumin Lipase Stool Occult Blood ASSESSMENT/PLAN: 77 y/o male with PMH ESRD on HD M/W/F last HD 10/03/2018, CAD s/p CABG, ETOH abuse, HTN, HLD presents with complaint of chest pain, shortness of breath and fatigue for the past two days. ACS- likely NSTEMI vs CHF exacerbation -Troponin 0.20, EKG showed normal sinus rhythm without acute ischemic ST changes -CXR shows cardiomegaly, increased interstitial markings, B/L costophrenic angle blunting -Telemetry monitoring -Trend troponin, serial EKGs -Cardiology consult requested -Anticoagulate w/ heparin drip -Control BP w/ Metoprolol, NOEL inhibitor -Aspirin 325mg -Atorvastatin -Diurese with Lasix Dyspnea -Continue BiPap -Duonebs History of ETOH abuse -Ativan for agitation, withdrawal -Thiamine, Folic acid -Fall precautions Anemia -Likely secondary to ESRD -Monitor H/H ESRD -Continue HD M// -Nephrology consult FEN -No IV fluids at this time -No electrolyte abnormalities -Renal diet PPX -On Heparin drip Disposition: Admit to Telemetry Advance directives: Full code Case discussed with pinion sorter attending. Visit type - Emergency Visit Emergency Visit: Yes ED Registration Date: 06/03/18 Care time: The patient presented to the Emergency Department on the above date and was hospitalized for further evaluation of their emergent condition. - New Patient This patient is new to me today: Yes Date on this admission: 06/04/18 - Critical Care Critical Care patient: No Hospitalist Screening - Colonoscopy Questionnaire Colonoscopy Questionnaire: Colonoscopy Questionnaire - Patient: 50 - 75 years old and never had a screening colonoscopy: Unknown History of colon or rectal polyps, or CA: Unknown History of IBD, Crohn's disease or UC: Unknown History of abdominal radiation therapy as a child: Unknown - Relative: 1 with colon or rectal CA, or polyps at age 60 or younger: Unknown Colon or rectal CA diagnosed at age 45 or younger: Unknown Multiple relatives with colon or rectal CA: Unknown - Outcome: Screening Result: Negative Screen
[2018-06-04] MEDS ORDERED: FOLIC ACID 1 MG TABLET (FP) PO ONE (00:33)
[2018-06-04] MEDS ORDERED: THIAMINE HCL 100 MG TABLET (FP) PO ONE (00:33)
[2018-06-04] MEDS: METOPROLOL TARTRATE 5 MG/5 ML VIAL IVPUSH SCH ×3 (00:38→08:41)
[2018-06-04] MEDS ORDERED: PT OWN MED DRAWER 7, Y5N ONE (00:51)
[2018-06-04] MEDS ORDERED: LORazepam 2 MG/ML SDV VIAL IVPUSH PRN (01:09)
[2018-06-04] MEDS: ACETAMINOPHEN 325 MG TABLET (FP) PO PRN ×3 (01:38→21:24)
[2018-06-04] MEDS: FUROSEMIDE 100 MG/10 ML INJECTABLE VIAL IVPUSH SCH ×2 (02:02→10:08)
[2018-06-04] MEDS: NITROGLYCERIN 25MG/D5W 250ML 25 MG/250 ML ML IVPB SCH (08:44)
[2018-06-04 09:28] LABS: MAGNESIUM 2.4 mg/dL (1.8-2.4); PHOSPHOROUS 4.1 mg/dL (2.5-4.9)
[2018-06-04 09:31] LABS: LIPASE 255 U/L (73-393)
[2018-06-04] MEDS ORDERED: ASPIRIN 325 MG TABLET PO SCH (10:00)
--- NOTE | 2018-06-04 10:03 | CON.NEP ---
Consult Consult Specialty:: Nephrology Reason for Consultation:: shortness of breath, chest pain - History of Present Illness Chief Complaint: " I can barely breathe" History of Present Illness: Mr. Parks is a 77 y/o male with ESRD, on HD M/W/F, was brought to [facility] ER with complaints of a three day history of increasing dyspnea, chest pain, and generalized weakness. Patient states that for the past three days he has been having a very hard time breathing and has had no energy. He can barely even make it down the stairs without getting very short of breath. He went to dialysis on Saturday, and had slight relief but then started to get worse on Saturday. IN addition,he has been having chest pain for the same time period. He said the pain is especially bad whenever he speaks and said it was also moving down to his abdomen. He said that yesterday he also "passed out" at home two times so his daughter brought him into the hospital. Currently, he has some relief of the chest pain however, he is still very dyspneic.His labs in the ER were notable for an elevated BUN/Cr of 43/8.0, his BNP was 175,000 and and H/H of 10.9/331. He had a chest XRAY which showed cardiomegaly, pulmonary vascular congestion and small pleural effusions consistent with CHF. , Dry weight on saturday: 70.4 - History Source History Provided By: Patient - Past Medical History Cardio/Vascular: Yes: CAD, HTN, Hyperlipdemia Gastrointestinal: Yes: GERD Renal/: Yes: Renal Failure, Hemodialysis (M/W/F) - Past Surgical History Past Surgical History: Yes: CABG (2 years ago ) - Alcohol/Substance Use Hx Alcohol Use: Yes - Smoking History Smoking history: Former smoker Have you smoked in the past 12 months: Yes Aproximately how many cigarettes per day: 5 - Social History ADL: Independent History of Recent Travel: No Home Medications - Allergies Allergies/Adverse Reactions: Allergies Allergy/AdvReac Type Severity Reaction Status Date / Time No Known Allergies Allergy Verified 06/03/18 16:14 - Home Medications Home Medications: Ambulatory Orders Calcium (Oyster Shell) [Os-Reuben 500MG -] 500 mg PO BID #60 tablet 03/22/16 Family Disease History - Family Disease History Family History: Unable to Obtain Review of Systems - Review of Systems Constitutional: reports: Lethargy Cardiovascular: reports: Chest Pain, Shortness of Breath Respiratory: reports: Cough, SOB, SOB on Exertion Gastrointestinal: denies: Abdominal Pain, Nausea, Vomiting Musculoskeletal: reports: Joint Pain (knee pain) Neurological: reports: Headache Hematology/Lymphatic: reports: Easily Bruised Nephrology Consult - Height Height: 1.85 m - Weight Weight: 71.214 kg - BMI Body Mass Index (BMI): 20.7 - Lab Results CBC,BMP: CBC, BMP 06/03/18 17:10 Anion Gap: Anion Gap Anion Gap 11 (8-16) 06/03/18 18:15 - Physical Examination Vital Signs: Vital Signs Temperature 97.9 F 06/04/18 06:00 Pulse Rate 51 L 06/04/18 06:00 Respiratory Rate 20 06/04/18 06:00 Blood Pressure 148/62 06/04/18 06:00 O2 Sat by Pulse Oximetry (%) 97 06/04/18 08:54 Constitutional: Yes: Moderate Distress Cardiovascular: Yes: Regular Rate and Rhythm, S1, S2. No: Murmur Respiratory: Yes: Wheezes (slight crackles and wheezes B/L) Gastrointestinal: Yes: Normal Bowel Sounds, Soft. No: Tenderness Access for Hemodialysis: AV Graft (left UE) Edema: No (no LE edema) Integumentary: Yes: Bruising (bruising on abdomen) Neurological: Yes: Alert, Oriented Psychiatric: Yes: Alert Problem List - Problems (1) CHF exacerbation Code(s): I50.9 - HEART FAILURE, UNSPECIFIED Qualifiers: Heart failure type: unspecified Qualified Code(s): I50.9 - Heart failure, unspecified (2) Chest pain Code(s): R07.9 - CHEST PAIN, UNSPECIFIED Qualifiers: Chest pain type: unspecified Qualified Code(s): R07.9 - Chest pain, unspecified (3) ESRD (end stage renal disease) Code(s): N18.6 - END STAGE RENAL DISEASE (4) Elevated troponin Code(s): R74.8 - ABNORMAL LEVELS OF OTHER SERUM ENZYMES (5) Anemia Code(s): D64.9 - ANEMIA, UNSPECIFIED Qualifiers: Anemia type: iron deficiency Iron deficiency anemia type: unspecified iron deficiency Qualified Code(s): D50.9 - Iron deficiency anemia, unspecified (6) CAD (coronary artery disease) Code(s): I25.10 - ATHSCL HEART DISEASE OF [place] CORONARY ARTERY W/O ANG PCTRS Assessment/Plan -patient going for HD today at bedside -cardiology evaluation -monitor on tele -monitor fluid status
--- NOTE | 2018-06-04 10:05 | EKG ---
Test Reason : Blood Pressure : / mmHG Vent. Rate : 060 BPM Atrial Rate : 060 BPM P-R Int : 150 ms QRS Dur : 094 ms QT Int : 492 ms P-R-T Axes : 002 -15 050 degrees QTc Int : 492 ms POOR DATA QUALITY, INTERPRETATION MAY BE ADVERSELY AFFECTED NORMAL SINUS RHYTHM CANNOT RULE OUT INFERIOR INFARCT , AGE UNDETERMINED ABNORMAL ECG WHEN COMPARED WITH ECG OF 03-JUN-2018 21:42, NO SIGNIFICANT CHANGE WAS FOUND Confirmed by AFRICA FOUNTAIN MD ([id number]) on 06/04/2018 10:05:38 AM Referred By: Confirmed By:AFRICA FOUNTAIN MD
--- NOTE | 2018-06-04 10:06 | EKG ---
Test Reason : Blood Pressure : / mmHG Vent. Rate : 065 BPM Atrial Rate : 065 BPM P-R Int : 164 ms QRS Dur : 094 ms QT Int : 452 ms P-R-T Axes : 040 041 073 degrees QTc Int : 470 ms NORMAL SINUS RHYTHM INCOMPLETE RIGHT BUNDLE BRANCH BLOCK POSSIBLE ANTERIOR INFARCT , AGE UNDETERMINED ABNORMAL ECG WHEN COMPARED WITH ECG OF 03-MAY-2016 19:05, NONSPECIFIC T WAVE ABNORMALITY NO LONGER EVIDENT IN INFERIOR LEADS NONSPECIFIC T WAVE ABNORMALITY NOW EVIDENT IN LATERAL LEADS Confirmed by АЛЕКСАНДР LOJA, AFRICA ([id number]) on 06/04/2018 10:06:09 AM Referred By: Confirmed By:AFRICA FOUNTAIN MD
--- NOTE | 2018-06-04 10:06 | EKG ---
Test Reason : Blood Pressure : / mmHG Vent. Rate : 070 BPM Atrial Rate : 070 BPM P-R Int : 152 ms QRS Dur : 092 ms QT Int : 430 ms P-R-T Axes : 039 000 042 degrees QTc Int : 464 ms NORMAL SINUS RHYTHM NORMAL ECG WHEN COMPARED WITH ECG OF 03-JUN-2018 16:17, NO SIGNIFICANT CHANGE WAS FOUND Confirmed by AFRICA FOUNTAIN MD ([id number]) on 06/04/2018 10:06:04 AM Referred By: Confirmed By:AFRICA FOUNTAIN MD
[2018-06-04] MEDS: NICOTINE 7 MG/24 HOURS TOPICAL PATCH TD SCH (10:09)
[2018-06-04] MEDS ORDERED: SODIUM CHLORIDE 250 ML IV PRN (11:03)
[2018-06-04 12:53] LABS: URINE APPEARANCE CLEAR; URINE BILIRUBIN NEGATIVE (<2.0 mg/dL); URINE COLOR LTYELLOW; URINE GLUCOSE (UA) 2+ (NEGATIVE); URINE KETONE NEGATIVE (NEGATIVE); URINE LEUK ESTERASE TRACE (NEGATIVE); URINE NITRITE NEGATIVE (NEGATIVE); URINE UROBILINOGEN NEGATIVE mg/dL (0.2-1.0)
[2018-06-04 13:16] LABS: URINE PROTEIN 2+ (NEGATIVE)
--- NOTE | 2018-06-04 13:18 | PN ---
Teaching Attending Note Name of Resident: Ro Martinez (Nephrology) ATTENDING PHYSICIAN STATEMENT I saw and evaluated the patient. I reviewed the resident's note and discussed the case with the resident. I agree with the resident's findings and plan as documented. Nephrology Pt is a 77 year old male with pmhx of ESRD, HTN, CAD, etoh abuse, and anemia who presents to the ER with several symptoms. He complains of generalized malaise. He says he has shortness of breath with ambulation. He also complained of abdominal pain and chest discomfort. He denies fevers or chills. His last HD was on Saturday and he left about 1.1 kg under his dry weight. he denies having lower ext edema. pmhx htn cad esrd pshx cabg nkda social hx hx etoh abuse family hx denies ros malaise Current Medications Generic Name Dose Route Start Last Admin Trade Name Freq PRN Reason Stop Dose Admin Acetaminophen 650 mg 06/04/18 01:11 06/04/18 08:45 Tylenol - PO 650 mg Q6H PRN Administration Fever Or Pain Albuterol/Ipratropium 1 amp 06/03/18 22:21 Duoneb - NEB Q4H PRN SHORTNESS OF BREATH Aspirin 325 mg 06/04/18 10:00 06/04/18 10:09 Asa - PO 325 mg DAILY TL Administration Atorvastatin Calcium 80 mg 06/04/18 22:00 Lipitor - PO HS TL Furosemide 100 mg 06/04/18 02:00 06/04/18 10:08 Lasix Injection - IVPUSH Not Given DAILY TL Heparin Sodium (Porcine) 1,000 unit 06/03/18 23:35 Heparin - IVPUSH PRN PRN Heparin Heparin Sodium (Porcine) 5,000 unit 06/03/18 23:35 Heparin - IVPUSH PRN PRN Heparin HEPARIN SOD,PORK IN 0.45% NACL 25,000 units in 500 mls @ 20 mls/hr 06/03/18 23 :45 06/04/18 00:42 Heparin-1/2ns 25,000 Units/500 IVPB 1,000 unit/hr TITR TL 20 mls/hr Administration Protocol 1,000 UNIT/HR Sodium Chloride 250 mls @ 3,000 mls/hr 06/04/18 11:03 Normal Saline - IV 06/05/18 11:03 PRN PRN Hypotension during Dialysis Lisinopril 10 mg 06/03/18 23:45 06/04/18 00:53 Prinivil PO 10 mg BID TL Administration Metoprolol Tartrate 2.5 mg 06/03/18 23:45 06/04/18 08:41 Lopressor Injection - IVPUSH Not Given Q8H TL Nicotine 7 mg 06/04/18 10:00 06/04/18 10:09 Nicoderm Patch - TD Not Given DAILY [facility] Last Vital Signs Temp Pulse Resp BP Pulse Ox 97.5 F L 56 L 18 128/64 95 06/04/18 09:00 06/04/18 09:58 06/04/18 09:58 06/04/18 09:58 06/04/18 09:00 Laboratory Tests 06/03/18 06/03/18 06/03/18 17:10 18:15 18:20 WBC 5.7 Hgb 10.9 L Sodium 142 Potassium 4.9 BUN 43 H Creatinine 8.0 H* Troponin I B-Natriuretic Peptide Stool Occult Blood Negative 06/03/18 06/03/18 06/03/18 18:44 22:10 22:10 WBC Hgb Sodium Potassium BUN Creatinine Troponin I 0.20 H D 0.20 H B-Natriuretic Peptide > 783052.00 H Stool Occult Blood 06/04/18 03:35 WBC Hgb Sodium Potassium BUN Creatinine Troponin I 0.17 H B-Natriuretic Peptide Stool Occult Blood cxr reviewed gen pt appears comfortable cardio s1s2 pulm scattered rhonchi GI soft, bs pos non tender circ pos pulses neuro awake and alert, mental status at baseline skin neg rash psych anxious Impression 1. ESRD 2. anemia 3. CAD 4. r/o chf 5. hx etoh abuse 6. active smoker 7. non compliance 8. HTN Plan - will arrange for HD today, will dialyze at bedside. pt not cleared to go to HD unit - called HD unit for prescription - cardiology evaluation - will UF about 2 liters today - can stop iv lasix - follow up echo results - keep on tele - ct head negative - will follow Dr Mei
[2018-06-04 13:30] LABS: URINE MUCUS RARE
[2018-06-04 13:31] LABS: BASO % 1.4 % (0-2.0); EOS % 4.7 % (0-4.5); HEMATOCRIT 29.7 % (35.4-49); HEMOGLOBIN 9.9 GM/dL (11.7-16.9); LYMPH % 19.4 % (8-40); MCH 30.2 pg (25.7-33.7); MCHC 33.1 g/dl (32.0-35.9); MEAN CELL VOLUME 91.2 fl (80-96); MEAN PLT VOLUME 9.3 fl (7.5-11.1); MONO % 9.1 % (3.8-10.2); NEUT % 65.4 % (42.8-82.8); PLATELET COUNT 110 K/MM3 (134-434); RBC 3.26 M/mm3 (4.00-5.60); RDW 17.8 % (11.9-15.9); WHITE BLOOD COUNT 5.4 K/mm3 (4.0-10.0)
[2018-06-04 14:04] LABS: ALBUMIN 2.9 g/dl (3.4-5.0); ANION GAP 9 (8-16); BLOOD UREA NITROGEN 49 mg/dL (7-18); CHLORIDE 103 mmol/L (98-107); CO2 28 mmol/L (21-32); GLUCOSE,RANDOM 125 mg/dL (74-106); MAGNESIUM 2.3 mg/dL (1.8-2.4); PHOSPHOROUS 4.4 mg/dL (2.5-4.9); POTASSIUM 4.2 mmol/L (3.5-5.1); SGOT/AST 30 U/L (15-37); SGPT/ALT 33 U/L (12-78); SODIUM 140 mmol/L (136-145)
[2018-06-04 14:05] LABS: ALK PHOS 132 U/L (45-117); BILIRUBIN,TOTAL 0.4 mg/dL (0.2-1.0)
--- NOTE | 2018-06-04 14:44 | ECHO ---
Name: MARIA TERESA BYRD Study Date: 06/04/2018 09:18 AM Age: 77 yrs Reason For Study: ef Height: 73 in Weight: 157 lb BSA IVSd 0.73cm Ao root diam 2.4cm LVIDd 5.5cm LA dimension 5.4cm LVIDs 3.8cm LVPWd 0.64cm EDKecia) 146.6ml LAV (MOD-bp) 114.0ml ESV(Marilee) 60.1ml [facility] 1.2cm RV S Corey 8.0cm/sec MV E max corey 51.8cm/sec MR max corey 332 .6cm/sec MV A max corey 34.1cm/sec MR max PG 44. 2mmHg MV E/A 1.5 TR max corey 231.8cm/sec PI end-d bes391 .0cm/sec TR max PG 21.6mmHg [facility] Peak E' Corey 2.5cm/sec Med E/e' 20.8 Lat Peak E' Vel6.4cm/sec Lat E/e'8.1
[2018-06-04 14:55] LABS: CREATININE 8.6 mg/dL (0.7-1.3)
--- NOTE | 2018-06-04 15:57 | PN ---
Physical Exam: SUBJECTIVE: Patient seen and examined at bedside. Complains of headache, generalized weakness, pain x 4 extremities greatest at right knee, diarrhea x 2 days, dysuria. OBJECTIVE: Vital Signs Period Temp Pulse Resp BP Sys/Aparicio Pulse Ox Last 24 Hr 97 F-98.2 F 51-88 18-20 128-191/55-93 95-100 GENERAL: The patient is awake, alert, and fully oriented, in no acute distress. HEAD: NC/AT EYES: PERRLA, EOMI, sclera anicteric ENT: oropharynx clear without exudates, moist mucous membranes NECK: Trachea midline, full range of motion, supple. LUNGS: wheezing and coarse crackles b/l HEART: Regular rate and rhythm, S1, S2 without murmur, rub or gallop. ABDOMEN: +bs, soft, non-distended, TTP in RUQ and RLE EXTREMITIES: 2+ pulses, warm, well-perfused, no edema MSK: tender to passive and active joint motions x 4 extremities, greatest at right knee NEUROLOGICAL: CNII-XII intact b/l, 5/5 strength x 4 extremities, sensorium grossly intact Laboratory Results - last 24 hr 06/03/18 06/03/18 06/03/18 17:10 17:10 17:10 WBC 5.7 RBC 3.62 L Hgb 10.9 L Hct 33.1 L MCV 91.4 MCH 30.2 MCHC 33.0 RDW 18.3 H Plt Count 124 L D MPV 9.8 D Absolute Neuts (auto) Neutrophils % Lymphocytes % Monocytes % Eosinophils % Basophils % Nucleated RBC % PT with INR 12.30 INR 1.09 PTT (Actin FS) Puncture Site ABG pH ABG pCO2 at Pt Temp ABG pO2 at Pt Temp ABG HCO3 ABG O2 Sat (Measured) ABG O2 Content ABG Base Excess Ruben Test O2 Delivery Device Oxygen Flow Rate PEEP Sodium Cancelled Potassium Cancelled Chloride Cancelled Carbon Dioxide Cancelled Anion Gap Cancelled BUN Cancelled Creatinine Cancelled Creat Clearance w eGFR Cancelled Random Glucose Cancelled Lactic Acid Calcium Cancelled Phosphorus Magnesium Total Bilirubin Cancelled AST Cancelled ALT Cancelled Alkaline Phosphatase Cancelled Creatine Kinase Cancelled Troponin I Cancelled B-Natriuretic Peptide Total Protein Cancelled Albumin Cancelled Lipase Urine Color Urine Appearance Urine pH Ur Specific [place] Urine Protein Urine Glucose (UA) Urine Ketones Urine Blood Urine Nitrite Urine Bilirubin Urine Urobilinogen Ur Leukocyte Esterase Urine WBC (Auto) Urine RBC (Auto) Urine Mucus Stool Occult Blood 06/03/18 06/03/18 06/03/18 17:10 18:15 18:15 WBC RBC Hgb Hct MCV MCH MCHC RDW Plt Count MPV Absolute Neuts (auto) Neutrophils % Lymphocytes % Monocytes % Eosinophils % Basophils % Nucleated RBC % PT with INR INR PTT (Actin FS) 31.3 Puncture Site ABG pH ABG pCO2 at Pt Temp ABG pO2 at Pt Temp ABG HCO3 ABG O2 Sat (Measured) ABG O2 Content ABG Base Excess Ruben Test O2 Delivery Device Oxygen Flow Rate PEEP Sodium Potassium Chloride Carbon Dioxide Anion Gap BUN Creatinine Creat Clearance w eGFR Random Glucose Lactic Acid 0.8 Calcium Phosphorus Magnesium Total Bilirubin AST ALT Alkaline Phosphatase Creatine Kinase Troponin I B-Natriuretic Peptide Total Protein Albumin Lipase Cancelled Urine Color Urine Appearance Urine pH Ur Specific [place] Urine Protein Urine Glucose (UA) Urine Ketones Urine Blood Urine Nitrite Urine Bilirubin Urine Urobilinogen Ur Leukocyte Esterase Urine WBC (Auto) Urine RBC (Auto) Urine Mucus Stool Occult Blood 06/03/18 06/03/18 06/03/18 18:15 18:20 18:44 WBC RBC Hgb Hct MCV MCH MCHC RDW Plt Count MPV Absolute Neuts (auto) Neutrophils % Lymphocytes % Monocytes % Eosinophils % Basophils % Nucleated RBC % PT with INR INR PTT (Actin FS) Puncture Site ABG pH ABG pCO2 at Pt Temp ABG pO2 at Pt Temp ABG HCO3 ABG O2 Sat (Measured) ABG O2 Content ABG Base Excess Ruben Test O2 Delivery Device Oxygen Flow Rate PEEP Sodium 142 Potassium 4.9 Chloride 103 Carbon Dioxide 28 Anion Gap 11 BUN 43 H Creatinine 8.0 H* Creat Clearance w eGFR 6.61 Random Glucose 89 Lactic Acid Calcium 8.6 Phosphorus 4.1 Magnesium 2.4 D Total Bilirubin 0.6 AST 31 D ALT 35 D Alkaline Phosphatase 145 H Creatine Kinase 98 Troponin I 0.20 H D B-Natriuretic Peptide Total Protein 6.5 Albumin 3.2 L Lipase 255 Urine Color Urine Appearance Urine pH Ur Specific [place] Urine Protein Urine Glucose (UA) Urine Ketones Urine Blood Urine Nitrite Urine Bilirubin Urine Urobilinogen Ur Leukocyte Esterase Urine WBC (Auto) Urine RBC (Auto) Urine Mucus Stool Occult Blood Negative 06/03/18 06/03/18 06/03/18 21:45 22:10 22:10 WBC RBC Hgb Hct MCV MCH MCHC RDW Plt Count MPV Absolute Neuts (auto) Neutrophils % Lymphocytes % Monocytes % Eosinophils % Basophils % Nucleated RBC % PT with INR INR PTT (Actin FS) Puncture Site Right radial ABG pH 7.46 H ABG pCO2 at Pt Temp 35.9 ABG pO2 at Pt Temp 90.4 ABG HCO3 25.4 ABG O2 Sat (Measured) 97.6 ABG O2 Content 11.8 L ABG Base Excess 2.1 H Ruben Test Positive O2 Delivery Device Nasal Oxygen Flow Rate 4l PEEP 0.0 Sodium Potassium Chloride Carbon Dioxide Anion Gap BUN Creatinine Creat Clearance w eGFR Random Glucose Lactic Acid Calcium Phosphorus Magnesium Total Bilirubin AST ALT Alkaline Phosphatase Creatine Kinase 91 Troponin I 0.20 H B-Natriuretic Peptide > 568649.00 H Total Protein Albumin Lipase Urine Color Urine Appearance Urine pH Ur Specific [place] Urine Protein Urine Glucose (UA) Urine Ketones Urine Blood Urine Nitrite Urine Bilirubin Urine Urobilinogen Ur Leukocyte Esterase Urine WBC (Auto) Urine RBC (Auto) Urine Mucus Stool Occult Blood 06/04/18 06/04/18 06/04/18 03:35 12:15 13:00 WBC 5.4 RBC 3.26 L Hgb 9.9 L Hct 29.7 L MCV 91.2 MCH 30.2 MCHC 33.1 RDW 17.8 H Plt Count 110 L MPV 9.3 Absolute Neuts (auto) 3.5 Neutrophils % 65.4 Lymphocytes % 19.4 D Monocytes % 9.1 Eosinophils % 4.7 H D Basophils % 1.4 D Nucleated RBC % 0 PT with INR INR PTT (Actin FS) Puncture Site ABG pH ABG pCO2 at Pt Temp ABG pO2 at Pt Temp ABG HCO3 ABG O2 Sat (Measured) ABG O2 Content ABG Base Excess Ruben Test O2 Delivery Device Oxygen Flow Rate PEEP Sodium Potassium Chloride Carbon Dioxide Anion Gap BUN Creatinine Creat Clearance w eGFR Random Glucose Lactic Acid Calcium Phosphorus Magnesium Total Bilirubin AST ALT Alkaline Phosphatase Creatine Kinase 75 Troponin I 0.17 H B-Natriuretic Peptide Total Protein Albumin Lipase Urine Color Ltyellow Urine Appearance Clear Urine pH 8.0 D Ur Specific [place] 1.010 Urine Protein 2+ H Urine Glucose (UA) 2+ H Urine Ketones Negative Urine Blood 1+ H Urine Nitrite Negative Urine Bilirubin Negative Urine Urobilinogen Negative Ur Leukocyte Esterase Trace Urine WBC (Auto) 15 Urine RBC (Auto) 5 Urine Mucus Rare Stool Occult Blood 06/04/18 06/04/18 13:00 13:00 WBC RBC Hgb Hct MCV MCH MCHC RDW Plt Count MPV Absolute Neuts (auto) Neutrophils % Lymphocytes % Monocytes % Eosinophils % Basophils % Nucleated RBC % PT with INR INR PTT (Actin FS) 65.8 H D Puncture Site ABG pH ABG pCO2 at Pt Temp ABG pO2 at Pt Temp ABG HCO3 ABG O2 Sat (Measured) ABG O2 Content ABG Base Excess Ruben Test O2 Delivery Device Oxygen Flow Rate PEEP Sodium 140 Potassium 4.2 Chloride 103 Carbon Dioxide 28 Anion Gap 9 BUN 49 H Creatinine 8.6 H* Creat Clearance w eGFR 6.08 Random Glucose 125 H D Lactic Acid Calcium 8.0 L Phosphorus 4.4 Magnesium 2.3 Total Bilirubin 0.4 AST 30 ALT 33 Alkaline Phosphatase 132 H D Creatine Kinase Troponin I B-Natriuretic Peptide Total Protein 6.0 L Albumin 2.9 L Lipase Urine Color Urine Appearance Urine pH Ur Specific [place] Urine Protein Urine Glucose (UA) Urine Ketones Urine Blood Urine Nitrite Urine Bilirubin Urine Urobilinogen Ur Leukocyte Esterase Urine WBC (Auto) Urine RBC (Auto) Urine Mucus Stool Occult Blood Active Medications Generic Name Dose Route Start Last Admin Trade Name Freq PRN Reason Stop Dose Admin Acetaminophen 650 mg 06/04/18 01:11 06/04/18 08:45 Tylenol - PO 650 mg Q6H PRN Administration Fever Or Pain Albuterol/Ipratropium 1 amp 06/03/18 22:21 Duoneb - NEB Q4H PRN SHORTNESS OF BREATH Aspirin 325 mg 06/04/18 10:00 06/04/18 10:09 Asa - PO 325 mg DAILY TL Administration Atorvastatin Calcium 80 mg 06/04/18 22:00 Lipitor - PO HS TL Furosemide 100 mg 06/04/18 02:00 06/04/18 10:08 Lasix Injection - IVPUSH Not Given DAILY TL Heparin Sodium (Porcine) 5,000 unit 06/04/18 22:00 Heparin - SQ BID TL Sodium Chloride 250 mls @ 3,000 mls/hr 06/04/18 11:03 Normal Saline - IV 06/05/18 11:03 PRN PRN Hypotension during Dialysis Lisinopril 10 mg 06/03/18 23:45 06/04/18 00:53 Prinivil PO 10 mg BID TL Administration Metoprolol Tartrate 12.5 mg 06/04/18 22:00 Lopressor - PO BID TL Nicotine 7 mg 06/04/18 10:00 06/04/18 10:09 Nicoderm Patch - TD Not Given DAILY TL ASSESSMENT/PLAN: 77 y/o M w/ PMHx ESRD on HD M/W/F, CAD s/p CABG, HTN, HLD, EtOH abuse, p/w progressively worsening chest pain, SOB, fatigue, orthopnea, PND, admitted for NSTEMI vs decompensated CHF #chest pain/SOB -cardiology consulted (Dr. Cuadra) -trops x3 0.2, 0.2, 0.17 -EKG: no acute ischemia -Echo: normal LV function, severe TR, mild MR -CXR: pulmondary edema, read as CHF -BNP: 175,000 -ASA changed to 81 -heparin drip d/c'd -Lopressor 12.5 BID -Lisinopril 40 -Atorvastatin 40 -volume control w/ HD, diuresis d/c'd -anticipate inpatient stress test tomorrow as per cardiology #ESRD -nephrology consulted (Dr. Mei) -HD M/W/F -Lasix d/c'd as per nephro #Dyspnea -c/w BiPap, duonebs #HTN -uncontrolled at home -lisinopril, lopressor -will monitor, add nifedipine if necessary as per cardiology #EtOH abuse -Pt reports last drink many years ago -ativan, thiamine, folate d/c'd #diarrhea -Pt reports ABx use ~10 days [employer] -stool Cx and C Diff studies ordered #dysuria -UA unrevealing -UCx sent #FEN -no fluids -lytes wnl, monitoring -NPO after midnight for stress test #PPx -heparin subq #dispo -monitor on tele #code -full Visit type - Emergency Visit Emergency Visit: No - New Patient This patient is new to me today: Yes Date on this admission: 06/04/18 - Critical Care Critical Care patient: No
--- NOTE | 2018-06-04 16:20 | PN ---
Teaching Attending Note Name of Resident: Castillo Desouza ATTENDING PHYSICIAN STATEMENT I saw and evaluated the patient. I reviewed the resident's note and discussed the case with the resident. I agree with the resident's findings and plan as documented. SUBJECTIVE: seen in am around 10;30 am has SPENCE , has no SOB. denies alcohol use for a long time ( his 20s) , has no CP , SOB has resolved . urinated after lasix . has dysuria . No weakness, numbness or tingling. has diarrhea OBJECTIVE: NAD. no facial droop, EOMI, round equal pupils. CV: RRR. Abd: soft, TTP in RUQ. nl BS. No rebound tenderness or guarding Ext: no edema . Lungs: crackles at bases and generalized wheezing Neuro : no facial droop, EOMI, round equal pupils. strength 5/5 in upper and lower extremities. 2+ knee jerk and 1+ biceps b/l ASSESSMENT AND PLAN: 77 y/o man with h/o CAD, s/p CABG, stents, ESRD MWF, HTN, HLP, and other medical problems who presented with SOB . He was found to have volume overload 1- Acute hypoxic resp failure, due to pulm edema/volume overload in the setting of ESRD and severe HTN . responded to lasix awaiting his HD. - Now improved - off lasix . - HD today . - Not sure about compliance - doubt that trop leak is a primary event triggering event 2- Elevated trop:likely demand ischemia in setting of acute hypoxic resp failure. - trop trended down . - Likely can dc heparin gtt. will d/w card - Not on ASa at home despite his history. dc asa 325, and add 81 mg - starte don BB , cont metoprolol. - echo reviewed. - check lipid panel . change lipitor 80 to 40 in mean time 3- HTN urgency : not on meds at home - started on lisinopril 10 BId . change to 40 daily - cont BB ( started here ) 4- diarrhea: check c diff and stool cx . was on Abx recently 4- dysuria : check UA 6- RUQ tenderness: check RUQ US . 7- SPENCE : in setting of HTN, CT neg . Neuro exam neg 8- ESRD: HD per schedule dispo : [facility] .
--- NOTE | 2018-06-04 16:47 | CON.CARD ---
Consult Consult Specialty:: Cardiology Referred by:: Hospitalist Reason for Consultation:: chest pain, sob, nstemi, cad - History of Present Illness Chief Complaint: chest pain, sob History of Present Illness: 77 year old man pmh HTN, HLD, smoker, etoh abuse, CAD s/p CABG 03/2016 [facility], ESRD on HD, non-adherent with outpatient fup and medications, admitted with c/o chest pain, sob, uncontrolled HTN and noted to have HTN urgency and mildly elevated troponin with evidence of volume overload. Pt seen and examined today in [facility]. Pt states that his symptoms began the day prior to admission. before this he was feeling well. states he began to have sudden onset chest pain and dyspnea mostly with exertion and relieved with rest to the point where he can walk only a few feet before he has to stop due to the symptoms. Denies any chest pain or sob at rest. Denies palpitations, pnd, orthopnea, or LE edema. No lightheadedness, dizziness , syncope, or near syncope. - History Source History Provided By: Patient, Medical Record Limitations to Obtaining History: No Limitations - Past Medical History Cardio/Vascular: Yes: CAD, HTN, Hyperlipdemia Gastrointestinal: Yes: GERD Renal/: Yes: Renal Failure, Hemodialysis (M/W/F) - Past Surgical History Past Surgical History: Yes: CABG (2 years ago ) - Alcohol/Substance Use Hx Alcohol Use: Yes - Smoking History Smoking history: Former smoker Have you smoked in the past 12 months: Yes Aproximately how many cigarettes per day: 5 - Social History ADL: Independent History of Recent Travel: No Home Medications - Allergies Allergies/Adverse Reactions: Allergies Allergy/AdvReac Type Severity Reaction Status Date / Time No Known Allergies Allergy Verified 06/03/18 16:14 - Home Medications Home Medications: Ambulatory Orders Calcium (Oyster Shell) [Os-Reuben 500MG -] 500 mg PO BID #60 tablet 03/22/16 Family Disease History - Family Disease History Family History: Denies Review of Systems - Review of Systems Constitutional: denies: No Symptoms, Chills, Diaphoresis, Fever, Lethargy, Loss of Appetite, Malaise, Night Sweats, Unintentional Wgt. Loss, Weakness, Other Eyes: denies: No Symptoms, Blind Spots, Blurred Vision, Double Vision, Eye Pain , Floaters, Photophobia, Recent Change in Vision, Other HENT: denies: No Symptoms, Difficult Swallowing, Ear Discharge, Ear Pain, Epistaxis, Gingival Bleeding, Hearing Loss, Mouth Swelling, Nasal Congestion, Ocular Prosthesis, Throat Pain, Toothache, Ringing in Ears, Other Neck: denies: No Symptoms, Decreased ROM, Lumps, Pain on Movement, Stiffness, Swollen Glands, Tenderness, Other Cardiovascular: reports: Chest Pain, Shortness of Breath. denies: No Symptoms, Edema, Palpitations, Other Respiratory: reports: Exercise Intolerance, SOB, SOB on Exertion. denies: No Symptoms, Cough, Hemoptysis, Orthopnea, PND, Snoring, Wheezing, Other Gastrointestinal: denies: No Symptoms, Abdominal Pain, Bloating, Constipation, Diarrhea, Dysphagia, Indigestion, Melena, Nausea, Rectal Bleeding, Vomiting, Vomiting Blood, Other Genitourinary: denies: No Symptoms, Burning, Discharge, Dysuria, Flank Pain, Frequency, Hematuria, Incontinence, Lesions, Menses, Pain, Testicular Mass, Testicular Pain, Testicular Swelling, Urgency, Vaginal Bleeding, Other Breasts: denies: No Symptoms Reported, See HPI, Breast Implants, Discharge from Nipple, Lumps, Pain, Skin Changes, Other Musculoskeletal: denies: No Symptoms, Back Pain, Crepitus, Decreased ROM, Extremity Pain, Joint Pain, Joint Swelling, Muscle Pain, Muscle Cramps, Muscle Weakness, Other Integumentary: denies: No Symptoms, Blister, Bruising, Change in Color, Eczema, Erythema, Incision, Lesions, Lump, Pallor, Pruritis, Rash, Wound, Other Neurological: denies: No Symptoms, Change in LOC, Change in Speech, Confusion, Dizziness, Headache, Incoordination, Numbness, Parasthesia, Pre-Existing Deficit , Seizure, Syncope, Tremors, Unsteady Gait, Weakness, Other Endocrine: denies: No Symptoms, Excessive Sweating, Flushing, Increased Hunger, Increased Thirst, Intolerance to Cold, Intolerance to Heat, Unexplained Weight Gain, Unexplained Weight Loss, Other Hematology/Lymphatic: denies: No Symptoms, Easily Bruised, Excessive Bleeding, Swollen Glands, Other Psychiatric: denies: No Symptoms, Altered Sleep Pattern, Anxiety, Depression, Hallucinations, Panic, Paranoia, Suicidal, Other - Risk Factors Known Risk Factors: Yes: Age, Diabetes Mellitus, Hypercholesterolemia, Hypertension, Prior CO /Emb Stroke Vital Signs: Vital Signs Temperature 97.4 F L 06/04/18 14:10 Pulse Rate 60 06/04/18 15:30 Respiratory Rate 18 06/04/18 15:30 Blood Pressure 175/82 06/04/18 15:30 O2 Sat by Pulse Oximetry (%) 96 06/04/18 15:11 Constitutional: Yes: Well Nourished, No Distress, Calm Eyes: Yes: WNL, Conjunctiva Clear, EOM Intact, PERRL HENT: Yes: WNL, Atraumatic, Normocephalic Neck: Yes: WNL, Supple, Trachea Midline Respiratory: Yes: Regular, Diminished, Rhonchi. No: Cough, On Nasal O2, Rales, SOB, Wheezes Gastrointestinal: Yes: WNL, Normal Bowel Sounds, Soft. No: Distention, Tenderness Renal/: Yes: WNL Cardiovascular: Yes: Regular Rate and Rhythm. No: Bradycardia, Tachycardia, Pulse Irregular, Gallop, Rub, Varicosities JVD: No Carotid Bruit: No PMI: Non-Displaced Heart Sounds: Yes: S1, S2. No: Split S2, S3, S4, Clicks, Gallop, Rub, Bruit Murmur: No: Systolic Murmur, Diastolic Murmur Musculoskeletal: Yes: WNL Extremities: Yes: WNL Edema: No Peripheral Pulses WNL: Yes Peripheral Pulses: 2+ Left Doralis Pedis, 2+ Right Dorsalis Pedis Integumentary: Yes: WNL Neurological: Yes: WNL, Alert, Oriented Psychiatric: Yes: Alert, Oriented - Other Data Labs, Other Data: CBC, BMP 06/04/18 13:00 06/04/18 13:00 INR, PTT INR 1.09 (0.82-1.09) 06/03/18 17:10 Troponin, BNP 06/03/18 06/03/18 06/03/18 17:10 18:44 22:10 Troponin I Cancelled 0.20 H D B-Natriuretic Peptide > 656446.00 H 06/03/18 06/04/18 22:10 03:35 Troponin I 0.20 H 0.17 H B-Natriuretic Peptide Troponin, BNP 06/03/18 06/03/18 06/03/18 17:10 18:44 22:10 Troponin I Cancelled 0.20 H D B-Natriuretic Peptide > 709029.00 H 06/03/18 06/04/18 22:10 03:35 Troponin I 0.20 H 0.17 H B-Natriuretic Peptide ekg-nsr, nonspecific St abnl Echo: Report Reviewed Prior Cardiac Procedures: CABG, Cardiac Catheterization Ejection Fraction %: LVEF > or = 40 % Imaging - Results Chest X-ray: Report Reviewed, Image Reviewed EKG: Report Reviewed, Image Reviewed Other: Report Reviewed, Image Reviewed (tele-nsr, sinus tyra, no sig arrhythmias) Assessment/Plan 77 year old man pmh HTN, HLD, smoker, etoh abuse, CAD s/p CABG 03/2016 [facility], ESRD on HD, non-adherent with outpatient fup and medications, admitted with c/o chest pain, sob, uncontrolled HTN and noted to have HTN urgency and mildly elevated troponin with evidence of volume overload. Pt seen and examined today in [facility]. Pt states that his symptoms began the day prior to admission. before this he was feeling well. states he began to have sudden onset chest pain and dyspnea mostly with exertion and relieved with rest to the point where he can walk only a few feet before he has to stop due to the symptoms. Denies any chest pain or sob at rest. Denies palpitations, pnd, orthopnea, or LE edema. No lightheadedness, dizziness , syncope, or near syncope. Chest pain/Dyspnea/NSTEMI-h/o CAD and CABG 03/2016 -Cardiac enzyme trend does not appear c/w a type I CO as troponin slightly elevated and not trending up signfiicantly and CK normal -more likely c/w known CAD, non-adherence with meds, uncontrolled HTN, current volume overload and decompensated CHF -echo 06/04/18 showed normal LV systolic function, severe TR, mild MR -ekg showed NSR 70bpm nonspecific ST abnl -no events on telemetry, sinus tyra, nsr -change to ASA 81mg daily and Lipitor, can hold off on 2nd anti-platelet for now -can stop heparin gtt as cardiac enzymes not trending up -start low dose bblocker and monitor if HR tolerates -cont volume removal as needed with HD -will plan for a pharm nuclear stress test to further evaluate for ischemia, if significant ischemia seen will need cardiac cath -close outpatient follow up needs to be set up HTN-uncontrolled -pt states he is not taking medications at home -cont Lisinopril -attempt to add low dose bblocker as above as HR tolerates -volume removal with HD -add additional anti-HTN meds as needed, re-evaluate BP control after HD -if remains elevated can start nifedipine er 30mg daily and uptitrate as needed
[2018-06-04] MEDS: METOPROLOL TARTRATE 25 MG TABLET (FP) PO SCH (21:23)
[2018-06-04] MEDS: HEPARIN NA (PORCINE) 5,000 UNITS/ML 1ML VIAL SQ SCH (21:23)
[2018-06-04] MEDS ORDERED: METOPROLOL TARTRATE 25 MG TABLET (FP) PO SCH (22:00)
[2018-06-04] MEDS ORDERED: ATORVASTATIN CA 40 MG TABLET (FP) PO SCH (22:00)
[2018-06-04] MEDS ORDERED: ATORVASTATIN CA 80 MG TABLET (FP) PO SCH (22:00)
[2018-06-04] MEDS ORDERED: MELATONIN 5 MG TABLETS PO ONE (22:00)
[2018-06-05 08:32] LABS: ANION GAP 8 (8-16); BLOOD UREA NITROGEN 25 mg/dL (7-18); CALCIUM 8.1 mg/dL (8.5-10.1); CHLORIDE 103 mmol/L (98-107); CO2 31 mmol/L (21-32); GLUCOSE,RANDOM 81 mg/dL (74-106); SODIUM 142 mmol/L (136-145)
[2018-06-05 08:37] LABS: CHOLESTEROL 155 mg/dL (50-200); CREATININE 5.9 mg/dL (0.7-1.3); HDL CHOLESTEROL 77 mg/dL (40-60); TRIGLYCERIDES 77 mg/dL (35-160)
--- NOTE | 2018-06-05 09:14 | PN ---
Progress Note, Physician History of Present Illness: patient seen and examined at bedside. patient sates he is feeling maybe slightly better after having HD yesterday. He is still dyspneic and coughing but it is slightly improving. He is mainly experiencing the chest pain when he coughs. He also had trouble sleeping last night. He denies any nausea vomiting or trouble urinating. Patient had echo yesterday which showed normal LV function , severe TR and mild MR. Patient is for HD tomorrow. - Current Medication List Current Medications: Active Medications Acetaminophen (Tylenol -) 650 mg PO Q6H PRN PRN Reason: Fever Or Pain Last Admin: 06/04/18 21:24 Dose: 650 mg Albuterol/Ipratropium (Duoneb -) 1 amp NEB Q4H PRN PRN Reason: SHORTNESS OF BREATH Aspirin (Ecotrin -) 81 mg PO DAILY [facility] Atorvastatin Calcium (Lipitor -) 40 mg PO HS [facility] Last Admin: 06/04/18 21:23 Dose: 40 mg Heparin Sodium (Porcine) (Heparin -) 5,000 unit SQ BID [facility] Last Admin: 06/04/18 21:23 Dose: 5,000 unit Sodium Chloride (Normal Saline -) 250 mls @ 3,000 mls/hr IV PRN PRN PRN Reason: Hypotension during Dialysis Stop: 06/05/18 11:03 Lisinopril (Prinivil) 40 mg PO DAILY [facility] Metoprolol Tartrate (Lopressor -) 12.5 mg PO BID [facility] Last Admin: 06/04/18 21:23 Dose: 12.5 mg Nicotine (Nicoderm Patch -) 7 mg TD DAILY [facility] Last Admin: 06/04/18 10:09 Dose: Not Given - Objective Vital Signs: Vital Signs Temperature 98.2 F 06/05/18 08:34 Pulse Rate 60 06/05/18 08:34 Respiratory Rate 16 06/05/18 08:34 Blood Pressure 136/66 06/05/18 08:34 O2 Sat by Pulse Oximetry (%) 98 06/05/18 07:57 Constitutional: Yes: No Distress Cardiovascular: Yes: Regular Rate and Rhythm, S1, S2. No: Murmur Respiratory: Yes: On Nasal O2, Rhonchi Gastrointestinal: Yes: Normal Bowel Sounds, Soft. No: Distention, Tenderness Edema: No (no LE edema ) Neurological: Yes: Alert, Oriented Psychiatric: Yes: Alert Labs: CBC, BMP 06/05/18 01:00 06/05/18 06:25 INR, PTT INR 1.09 (0.82-1.09) 06/03/18 17:10 Problem List - Problems (1) CHF exacerbation Code(s): I50.9 - HEART FAILURE, UNSPECIFIED Qualifiers: Heart failure type: unspecified Qualified Code(s): I50.9 - Heart failure, unspecified (2) Chest pain Code(s): R07.9 - CHEST PAIN, UNSPECIFIED Qualifiers: Chest pain type: unspecified Qualified Code(s): R07.9 - Chest pain, unspecified (3) ESRD (end stage renal disease) Code(s): N18.6 - END STAGE RENAL DISEASE (4) Elevated troponin Code(s): R74.8 - ABNORMAL LEVELS OF OTHER SERUM ENZYMES (5) Anemia Code(s): D64.9 - ANEMIA, UNSPECIFIED Qualifiers: Anemia type: iron deficiency Iron deficiency anemia type: unspecified iron deficiency Qualified Code(s): D50.9 - Iron deficiency anemia, unspecified (6) CAD (coronary artery disease) Code(s): I25.10 - ATHSCL HEART DISEASE OF [place] CORONARY ARTERY W/O ANG PCTRS Assessment/Plan patient is for HD tomorrow -follow up labs -monitor fluid status -monitor breathing
[2018-06-05] MEDS ORDERED: REGADENOSON 0.4 MG/5 ML PRE-FILLED SYRINGE IVPUSH ONE ×3 (09:59→13:44)
[2018-06-05] MEDS ORDERED: SULFAMETHOXAZOLE/TRIMETHOPRIM 800MG/160MG D.S. TABLET PO SCH (11:30)
[2018-06-05] MEDS ORDERED: ALBUTEROL SO4 8 GM HFA INHALER IH PRN (11:35)
[2018-06-05] MEDS: ALBUTEROL SO4 2.5/IPRATROPIUM 0.5 INH SOL 3 ML VIAL.NEB. NEB SCH ×2 (12:54→19:40)
--- NOTE | 2018-06-05 14:45 | PN ---
Physical Exam: SUBJECTIVE: Patient seen and examined at bedside. Complains of severe fatigue from walking from bed to bathroom, ongoing productive cough, dysuria, constipation since admission to hospital. OBJECTIVE: Vital Signs Period Temp Pulse Resp BP Sys/Aparicio Pulse Ox Last 24 Hr 97.9 F-98.4 F 55-72 16-20 136-175/66-82 94-98 GENERAL: The patient is awake, alert, and fully oriented, in no acute distress. HEAD: NC/AT EYES: PERRLA, EOMI, sclera anicteric ENT: oropharynx clear without exudates, moist mucous membranes NECK: Trachea midline, full range of motion, supple. LUNGS: wheezing and coarse crackles b/l HEART: Regular rate and rhythm, S1, S2 without murmur, rub or gallop. ABDOMEN: +bs, soft, non-distended, TTP in RUQ EXTREMITIES: 2+ pulses, warm, well-perfused, no edema NEUROLOGICAL: CNII-XII intact b/l, 5/5 strength x 4 extremities, sensorium grossly intact Laboratory Results - last 24 hr 06/04/18 06/04/18 06/04/18 13:00 13:00 19:30 WBC Corrected WBC (auto) RBC Hgb Hct MCV MCH MCHC RDW Plt Count MPV Manual Slide Review Platelet Comment PTT (Actin FS) 65.8 H D Sodium 140 Potassium 4.2 Chloride 103 Carbon Dioxide 28 Anion Gap 9 BUN 49 H Creatinine 8.6 H* Creat Clearance w eGFR 6.08 Random Glucose 125 H D Calcium 8.0 L Phosphorus 4.4 Magnesium 2.3 Total Bilirubin 0.4 AST 30 ALT 33 Alkaline Phosphatase 132 H D Total Protein 6.0 L Albumin 2.9 L Triglycerides Cholesterol Total LDL Cholesterol HDL Cholesterol Hep C Ab Diagnostic Cancelled Hepatitis C RNA Cancelled HCV RNA PCR log 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 Cancelled HCV RNA (PCR) IUs/ml Cancelled HCV RNA PCR w/Genot Rflx Cancelled Liver Fibrosis Interp Cancelled 06/05/18 06/05/18 06/05/18 01:00 06:25 06:25 WBC Cancelled Corrected WBC (auto) Cancelled RBC Cancelled Hgb Cancelled Hct Cancelled MCV Cancelled MCH Cancelled MCHC Cancelled RDW Cancelled Plt Count Cancelled MPV Cancelled Manual Slide Review Cancelled Platelet Comment Cancelled PTT (Actin FS) 29.3 D Sodium 142 Potassium 4.0 Chloride 103 Carbon Dioxide 31 Anion Gap 8 BUN 25 H Creatinine 5.9 H Creat Clearance w eGFR 9.39 Random Glucose 81 D Calcium 8.1 L Phosphorus Magnesium Total Bilirubin AST ALT Alkaline Phosphatase Total Protein Albumin Triglycerides 77 D Cholesterol 155 D Total LDL Cholesterol 63 D HDL Cholesterol 77 H D Hep C Ab Diagnostic Hepatitis C RNA HCV RNA PCR log [employer]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 HCV RNA (PCR) IUs/ml HCV RNA PCR w/Genot Rflx Liver Fibrosis Interp Active Medications Generic Name Dose Route Start Last Admin Trade Name Freq PRN Reason Stop Dose Admin Acetaminophen 650 mg 06/04/18 01:11 06/04/18 21:24 Tylenol - PO 650 mg Q6H PRN Administration Fever Or Pain Albuterol Sulfate 2 puff 06/05/18 11:35 Ventolin Hfa Inhaler - IH Q4H PRN SHORT OF BREATH/WHEEZING Albuterol/Ipratropium 1 amp 06/05/18 11:00 06/05/18 12:54 Duoneb - NEB 1 amp Q4H TL Administration Aspirin 81 mg 06/05/18 10:00 Ecotrin - PO DAILY [facility] Atorvastatin Calcium 40 mg 06/04/18 22:00 06/04/18 21:23 Lipitor - PO 40 mg HS TL Administration Heparin Sodium (Porcine) 5,000 unit 06/04/18 22:00 06/04/18 21:23 Heparin - SQ 5,000 unit BID [facility] Administration Sodium Chloride 250 mls @ 3,000 mls/hr 06/04/18 11:03 Normal Saline - IV 06/05/18 11:03 PRN PRN Hypotension during Dialysis Lisinopril 40 mg 06/05/18 10:00 Prinivil PO DAILY [facility] Metoprolol Tartrate 12.5 mg 06/04/18 22:00 06/04/18 21:23 Lopressor - PO 12.5 mg BID [facility] Administration Nicotine 7 mg 06/04/18 10:00 06/04/18 10:09 Nicoderm Patch - TD Not Given DAILY [facility] Fluticasone/Salmeterol 1 puff 06/05/18 11:45 Advair 100mcg/50mcg - IH BID [facility] Trimethoprim/Sulfamethoxazole 1 each 06/05/18 11:30 Bactrim Ds - PO Q2D@1000 [facility] ASSESSMENT/PLAN: 77 y/o M w/ PMHx ESRD on HD M/W/F, CAD s/p CABG, HTN, HLD, EtOH abuse, p/w progressively worsening chest pain, SOB, fatigue, orthopnea, PND, admitted for NSTEMI vs decompensated CHF #chest pain/SOB -cardiology consulted (Dr. Cuadra) -EKG: no acute ischemia -Echo: normal LV function, severe TR, mild MR, severely dilated L and R atria -CXR: pulmondary edema, read as CHF -BNP: 175,000 -ASA 81 -Lopressor 12.5 BID -Lisinopril 40 -Atorvastatin reduced to 20 given low LDL, high HDL -volume control w/ HD -normal stress test, EF 52% #ESRD -nephrology consulted (Dr. Mei) -HD M/W/F -Lasix d/c'd as per nephro -per nephrology, upon HD yesterday patient was below known dry weight, therefore volume status uncertain; given right-sided cardiac dysfunction per echo, workup for pulm HTN may be warranted -Zolpidem given per nephro #Dyspnea -duonebs changed from PRN to standing -initiated advair and PRN albuterol -3L NC -awaiting pre/post #HTN -uncontrolled at home -lisinopril, lopressor -will monitor, add nifedipine if necessary as per cardiology #EtOH abuse -Pt reports last drink many years ago -ativan, thiamine, folate d/c'd #RUQ pain -abd US: mild fatty infiltration of liver, otherwise unremarkable #diarrhea -Pt reports ABx use ~10 days ELECTRONIC SCALE TESTER, diarrhea 2 days ELECTRONIC SCALE TESTER -stool Cx and C Diff studies ordered #dysuria -UA w/ LE and WBC -UCx pending -empiric bactrim q48 (ESRD on HD guidelines per pharmacy) #FEN -no fluids -lytes wnl, monitoring -NPO after midnight for stress test #PPx -heparin subq #dispo -monitor on tele #code -full Visit type - Emergency Visit Emergency Visit: No - New Patient This patient is new to me today: No - Critical Care Critical Care patient: No
[2018-06-05] MEDS: NICOTINE 7 MG/24 HOURS TOPICAL PATCH TD SCH (15:43)
[2018-06-05] MEDS: ASPIRIN COATED 81 MG TABLET.EC PO SCH (15:44)
[2018-06-05] MEDS: LISINOPRIL 20 MG TABLET (FP) PO SCH (15:44)
[2018-06-05] MEDS: HEPARIN NA (PORCINE) 5,000 UNITS/ML 1ML VIAL SQ SCH ×2 (15:44→21:04)
[2018-06-05] MEDS: METOPROLOL TARTRATE 25 MG TABLET (FP) PO SCH (15:45)
[2018-06-05] MEDS: FLUTICASONE/SALMETEROL 100 MCG/50 MCG DISKUS IH SCH ×2 (15:49→21:03)
--- NOTE | 2018-06-05 15:51 | PN ---
Progress Note, Physician History of Present Illness: seen and examined today in [facility]. no overnight events. no new complaints. - Current Medication List Current Medications: Active Medications Acetaminophen (Tylenol -) 650 mg PO Q6H PRN PRN Reason: Fever Or Pain Last Admin: 06/04/18 21:24 Dose: 650 mg Albuterol Sulfate (Ventolin Hfa Inhaler -) 2 puff IH Q4H PRN PRN Reason: SHORT OF BREATH/WHEEZING Albuterol/Ipratropium (Duoneb -) [address] [facility] Last Admin: 06/05/18 12:54 Dose: 1 amp Aspirin (Ecotrin -) [address] [facility] Atorvastatin Calcium (Lipitor -) [address] [facility] Last Admin: 06/04/18 21:23 Dose: 40 mg Heparin Sodium (Porcine) (Heparin -) 5,[address] [facility] Last Admin: 06/04/18 21:23 Dose: 5,000 unit Sodium Chloride (Normal Saline -) 250 mls @ 3,000 mls/hr IV PRN PRN PRN Reason: Hypotension during Dialysis Stop: 06/05/18 11:03 Lisinopril (Prinivil) [address] [facility] Metoprolol Tartrate (Lopressor -) 12.[address] [facility] Last Admin: 06/04/18 21:23 Dose: 12.5 mg Nicotine (Nicoderm Patch -) [address] [facility] Last Admin: 06/04/18 10:09 Dose: Not Given Fluticasone/Salmeterol (Advair 100mcg/50mcg -) [address] [facility] Trimethoprim/Sulfamethoxazole (Bactrim Ds -) 1 each PO Q2D@1000 [facility] - Objective Vital Signs: Vital Signs Temperature 98.2 F 06/05/18 08:34 Pulse Rate 60 06/05/18 08:34 Respiratory Rate 16 06/05/18 09:00 Blood Pressure 136/66 06/05/18 08:34 O2 Sat by Pulse Oximetry (%) 95 06/05/18 12:55 Constitutional: Yes: No Distress, Calm Eyes: Yes: Conjunctiva Clear, EOM Intact, PERRL HENT: Yes: Atraumatic, Normocephalic Neck: Yes: Supple, Trachea Midline Cardiovascular: Yes: Bradycardia, S1, S2. No: Regular Rate and Rhythm, Tachycardia, Pulse Irregular, Bruit, JVD, Gallop, Murmur, Rub, S3, S4, Varicosities Respiratory: Yes: Regular, Diminished. No: Rales, Rhonchi, Wheezes Gastrointestinal: Yes: Normal Bowel Sounds, Soft. No: Distention, Tenderness Breast(s): Yes: WNL Musculoskeletal: Yes: WNL Extremities: Yes: WNL Edema: No Peripheral Pulses WNL: Yes Peripheral Pulses: Left Doralis Pedis: 2+, Right Dorsalis Pedis: 2+ Neurological: Yes: Alert, Oriented Psychiatric: Yes: Alert, Oriented Labs: CBC, BMP 06/05/18 01:00 06/05/18 06:25 INR, PTT INR 1.09 (0.82-1.09) 06/03/18 17:10 - ....Imaging Chest X-ray: Report Reviewed, Image Reviewed EKG: Report Reviewed, Image Reviewed Other: Report Reviewed, Image Reviewed (tele-sinus bradycardia 40-50s, no sig pauses, no arrhythmias) Assessment/Plan 77 year old man pmh HTN, HLD, smoker, etoh abuse, CAD s/p CABG 03/2016 [facility], ESRD on HD, non-adherent with outpatient fup and medications, admitted with c/o chest pain, sob, uncontrolled HTN and noted to have HTN urgency and mildly elevated troponin with evidence of volume overload. Pt seen and examined today in [facility]. Pt states that his symptoms began the day prior to admission. before this he was feeling well. states he began to have sudden onset chest pain and dyspnea mostly with exertion and relieved with rest to the point where he can walk only a few feet before he has to stop due to the symptoms. Denies any chest pain or sob at rest. Chest pain/Dyspnea/NSTEMI-h/o CAD and CABG 03/2016 -Cardiac enzyme trend does not appear c/w a type I CO as troponin slightly elevated and not trending up signfiicantly and CK normal -more likely c/w known CAD, non-adherence with meds, uncontrolled HTN, current volume overload and decompensated CHF -echo 06/04/18 showed normal LV systolic function, severe TR, mild MR -Jackelyn nuclear stress test 06/05/18-normal perfusion, no ischemia LVEF 52% -no events on telemetry, sinus tyra, nsr -cont ASA 81mg daily -cont Lipitor but can reduce to 20mg -will stop Metoprolol due to sinus bradycardia -cont volume removal as needed with HD -ok to dc tele HTN-improving -pt states he is not taking medications at home -cont Lisinopril -did not tolerate bblocker due to sinus bradycardia, will dc it -volume removal with HD -add additional anti-HTN meds as needed -if remains elevated can start nifedipine er 30mg daily and uptitrate as needed -No additional inpatient cardiac work up needed at this time. Have reenforced and recommend close outpatient fup with me. Please call with any additional questions.
--- NOTE | 2018-06-05 16:17 | PN ---
Teaching Attending Note Name of Resident: Castillo Desouza ATTENDING PHYSICIAN STATEMENT I saw and evaluated the patient. I reviewed the resident's note and discussed the case with the resident. I agree with the resident's findings and plan as documented. SUBJECTIVE: No fever chills. has cough. breathing has improved . NO CP . No SPENCE . cont to have dysuria OBJECTIVE: NAD. no facial droop, EOMI, round equal pupils. CV: RRR. Ext: no edema. Lungs: decreased breath sounds at bases . No wheezes and no crackles ASSESSMENT AND PLAN: 77 y/o man with h/o CAD, s/p CABG, stents, ESRD MWF, HTN, HLP, and other medical problems who presented with SOB . He was found to have volume overload 1- Acute hypoxic resp failure, due to pulm edema/volume overload in the setting of ESRD and severe HTN . - improved - start standing nebs 2- Elevated trop:likely demand ischemia in setting of acute hypoxic resp failure. -Stress test neg . nO cp at this time - cont ASA ,and BB. - LDL 63. ? no need for statin , will confirm with card. 3- HTN urgency : resolved .BP improved -cont lisinopril and BB 4- diarrhea: resolved 4- dysuria : will treat for UTI. will follow cx as out pt and call pt for adjustment if needed . start bactrim with dose adjustment x 7 days 7- ESRD: HD per schedule Dispo: will taper O2 off , if successful will DC home
--- NOTE | 2018-06-05 16:38 | PN ---
Teaching Attending Note Name of Resident: Ro Martinez (Nephrology) ATTENDING PHYSICIAN STATEMENT I saw and evaluated the patient. I reviewed the resident's note and discussed the case with the resident. I agree with the resident's findings and plan as documented. Renal Follow Up Pt seen and examined at bedside. He went for stress test today. He complains of shortness of breath with ambulation. He denies chest pain. He is asking for ambien. Current Medications Generic Name Dose Route Start Last Admin Trade Name Freq PRN Reason Stop Dose Admin Acetaminophen 650 mg 06/04/18 01:11 06/04/18 21:24 Tylenol - PO 650 mg Q6H PRN Administration Fever Or Pain Albuterol Sulfate 2 puff 06/05/18 11:35 Ventolin Hfa Inhaler - IH Q4H PRN SHORT OF BREATH/WHEEZING Albuterol/Ipratropium 1 amp 06/05/18 11:00 06/05/18 12:54 Duoneb - NEB 1 amp Q4H TL Administration Aspirin 81 mg 06/05/18 10:00 06/05/18 15:44 Ecotrin - PO 81 mg DAILY TL Administration Atorvastatin Calcium 40 mg 06/04/18 22:00 06/04/18 21:23 Lipitor - PO 40 mg HS TL Administration Heparin Sodium (Porcine) 5,000 unit 06/04/18 22:00 06/05/18 15:44 Heparin - SQ 5,000 unit BID TL Administration Sodium Chloride 250 mls @ 3,000 mls/hr 06/04/18 11:03 Normal Saline - IV 06/05/18 11:03 PRN PRN Hypotension during Dialysis Lisinopril 40 mg 06/05/18 10:00 06/05/18 15:44 Prinivil PO 40 mg DAILY TL Administration Metoprolol Tartrate 12.5 mg 06/04/18 22:00 06/05/18 15:45 Lopressor - PO 12.5 mg BID TL Administration Nicotine 7 mg 06/04/18 10:00 06/05/18 15:43 Nicoderm Patch - TD 7 mg DAILY TL Administration Fluticasone/Salmeterol 1 puff 06/05/18 11:45 06/05/18 15:49 Advair 100mcg/50mcg - IH 1 puff BID TL Administration Trimethoprim/Sulfamethoxazole 1 each 06/05/18 11:30 06/05/18 15:49 Bactrim Ds - PO 1 each Q2D@1000 TL Administration Last Vital Signs Temp Pulse Resp BP Pulse Ox 98.2 F 60 16 136/66 95 06/05/18 08:34 06/05/18 08:34 06/05/18 09:00 06/05/18 08:34 06/05/18 12:55 gen pt appears comfortable cardio s1s2 pulm on NC o2 GI soft, bs pos non tender circ pos pulses neuro awake and alert, mental status at baseline skin neg rash psych anxious Impression 1. ESRD 2. anemia 3. CAD 4. r/o chf 5. hx etoh abuse 6. active smoker 7. non compliance 8. HTN Plan - HD in am - follow up stress test results - check pulse ox on and off of oxygen - follow urine cultures - will give ambien as he takes it at home - will follow Dr Mei
[2018-06-05] MEDS ORDERED: PT OWN MED DRAWER 7, Y5N ONE (16:58)
[2018-06-05] MEDS ORDERED: ZOLPIDEM TARTRATE 5 MG TABLET PO PRN (22:00)
[2018-06-05] MEDS ORDERED: ATORVASTATIN CA 20 MG TABLET (FP) PO SCH (22:00)
[2018-06-06] MEDS: ACETAMINOPHEN 325 MG TABLET (FP) PO PRN (06:21)
[2018-06-06 06:38] LABS: BASO % 0.9 % (0-2.0); EOS % 3.2 % (0-4.5); HEMATOCRIT 29.4 % (35.4-49); MCH 30.8 pg (25.7-33.7); MEAN CELL VOLUME 90.6 fl (80-96); MEAN PLT VOLUME 9.1 fl (7.5-11.1); MONO % 8.5 % (3.8-10.2); NEUT % 66.4 % (42.8-82.8); PLATELET COUNT 117 K/MM3 (134-434); RBC 3.25 M/mm3 (4.00-5.60); RDW 17.9 % (11.9-15.9); WHITE BLOOD COUNT 6.1 K/mm3 (4.0-10.0)
[2018-06-06 06:47] LABS: ANION GAP 12 (8-16); BLOOD UREA NITROGEN 41 mg/dL (7-18); CALCIUM 7.8 mg/dL (8.5-10.1); CHLORIDE 102 mmol/L (98-107); CO2 28 mmol/L (21-32); GLUCOSE,RANDOM 86 mg/dL (74-106); POTASSIUM 3.9 mmol/L (3.5-5.1); SODIUM 142 mmol/L (136-145)
[2018-06-06 06:52] LABS: CREATININE 7.9 mg/dL (0.7-1.3)
[2018-06-06] MEDS: ALBUTEROL SO4 2.5/IPRATROPIUM 0.5 INH SOL 3 ML VIAL.NEB. NEB SCH ×4 (08:39→14:08)
--- NOTE | 2018-06-06 09:08 | PN ---
Progress Note, Physician History of Present Illness: patient seen and examined at bedside. patient states that despite taking the ambien he did not sleep at all during the night. he is still having trouble breathing and feels the chest pain is brought on when he gets dyspneic. patient underwent stress test yesterday which showed normal perfusion, no ischemia and an LVEF of 52%. patient is due for HD this morning. - Current Medication List Current Medications: Active Medications Acetaminophen (Tylenol -) 650 mg PO Q6H PRN PRN Reason: Fever Or Pain Last Admin: 06/06/18 06:21 Dose: 650 mg Albuterol Sulfate (Ventolin Hfa Inhaler -) 2 puff IH Q4H PRN PRN Reason: SHORT OF BREATH/WHEEZING Albuterol/Ipratropium (Duoneb -) 1 amp NEB Q4H [facility] Last Admin: 06/06/18 08:41 Dose: 1 amp Aspirin (Ecotrin -) 81 mg PO DAILY [facility] Last Admin: 06/05/18 15:44 Dose: 81 mg Atorvastatin Calcium (Lipitor -) 20 mg PO HS [facility] Last Admin: 06/05/18 21:03 Dose: 20 mg Epoetin Efrain (Epogen -) 3,000 unit IVPUSH ONCE ONE Stop: 06/06/18 16:43 Heparin Sodium (Porcine) (Heparin -) 5,000 unit SQ BID [facility] Last Admin: 06/05/18 21:04 Dose: 5,000 unit Heparin Sodium (Porcine) (Heparin -) 1,000 unit IVPUSH ONCE ONE Stop: 06/06/18 16:43 Sodium Chloride (Normal Saline -) 250 mls @ 3,000 mls/hr IV PRN PRN PRN Reason: Hypotension during Dialysis Stop: 06/06/18 16:42 Lisinopril (Prinivil) 40 mg PO DAILY [facility] Last Admin: 06/05/18 15:44 Dose: 40 mg Nicotine (Nicoderm Patch -) 7 mg TD DAILY [facility] Last Admin: 06/05/18 15:43 Dose: 7 mg Fluticasone/Salmeterol (Advair 100mcg/50mcg -) 1 puff IH BID [facility] Last Admin: 06/05/18 21:03 Dose: 1 puff Trimethoprim/Sulfamethoxazole (Bactrim Ds -) 1 each PO Q2D@1000 [facility] Last Admin: 06/05/18 15:49 Dose: 1 each Zolpidem Tartrate (Ambien -) 5 mg PO HS PRN PRN Reason: INSOMNIA Last Admin: 06/05/18 21:04 Dose: 5 mg - Objective Vital Signs: Vital Signs Temperature 98.2 F 06/06/18 05:32 Pulse Rate 61 06/06/18 05:32 Respiratory Rate 22 06/06/18 05:32 Blood Pressure 141/70 06/06/18 05:32 O2 Sat by Pulse Oximetry (%) 98 06/06/18 08:39 Constitutional: Yes: No Distress Cardiovascular: Yes: Regular Rate and Rhythm, S1, S2 Respiratory: Yes: CTA Bilaterally, Diminished (slightly diminished breath sounds at bases), On Nasal O2. No: Rales, Rhonchi Gastrointestinal: Yes: Normal Bowel Sounds. No: Tenderness Edema: No (no LE edema) Neurological: Yes: Alert Psychiatric: Yes: Alert Labs: CBC, BMP 06/06/18 05:30 06/06/18 05:30 INR, PTT INR 1.09 (0.82-1.09) 06/03/18 17:10 Problem List - Problems (1) CHF exacerbation Code(s): I50.9 - HEART FAILURE, UNSPECIFIED Qualifiers: Heart failure type: unspecified Qualified Code(s): I50.9 - Heart failure, unspecified (2) Chest pain Code(s): R07.9 - CHEST PAIN, UNSPECIFIED Qualifiers: Chest pain type: unspecified Qualified Code(s): R07.9 - Chest pain, unspecified (3) ESRD (end stage renal disease) Code(s): N18.6 - END STAGE RENAL DISEASE (4) Elevated troponin Code(s): R74.8 - ABNORMAL LEVELS OF OTHER SERUM ENZYMES (5) Anemia Code(s): D64.9 - ANEMIA, UNSPECIFIED Qualifiers: Anemia type: iron deficiency Iron deficiency anemia type: unspecified iron deficiency Qualified Code(s): D50.9 - Iron deficiency anemia, unspecified (6) CAD (coronary artery disease) Code(s): I25.10 - ATHSCL HEART DISEASE OF [place] CORONARY ARTERY W/O ANG PCTRS Assessment/Plan -patient is due for HD this morning -follow up labs -follow up urine cultures monitor breathing status
[2018-06-06] MEDS: NICOTINE 7 MG/24 HOURS TOPICAL PATCH TD SCH (10:06)
[2018-06-06] MEDS: FLUTICASONE/SALMETEROL 100 MCG/50 MCG DISKUS IH SCH (10:06)
[2018-06-06] MEDS: HEPARIN NA (PORCINE) 5,000 UNITS/ML 1ML VIAL SQ SCH (10:06)
[2018-06-06] MEDS: ASPIRIN COATED 81 MG TABLET.EC PO SCH (10:06)
[2018-06-06] MEDS ORDERED: predniSONE 20 MG TABLET (UD) PO SCH (11:15)
[2018-06-06] MEDS ORDERED: SODIUM CHLORIDE 250 ML IV PRN (13:35)
--- NOTE | 2018-06-06 13:40 | PN ---
Physical Exam: SUBJECTIVE: Patient seen and examined at bedside. Continues to complain of excessive fatigue, wheezing, shortness of breath at rest and worsened by exertion, chest tightness, congestion, cough. OBJECTIVE: Vital Signs Period Temp Pulse Resp BP Sys/Aparicio Pulse Ox Last 24 Hr 97.3 F-98.5 F 61-67 16-22 116-165/64-94 94-98 GENERAL: The patient is awake, alert, and fully oriented, in no acute distress. HEAD: NC/AT EYES: PERRLA, EOMI, sclera anicteric ENT: oropharynx clear without exudates, moist mucous membranes NECK: Trachea midline, full range of motion, supple. LUNGS: wheezing and coarse crackles b/l HEART: Regular rate and rhythm, S1, S2 without murmur, rub or gallop. ABDOMEN: +bs, soft, non-distended, TTP in RUQ EXTREMITIES: 2+ pulses, warm, well-perfused, no edema NEUROLOGICAL: CNII-XII intact b/l, 5/5 strength x 4 extremities, sensorium grossly intact Laboratory Results - last 24 hr 06/04/18 06/06/18 06/06/18 19:30 05:30 05:30 WBC 6.1 RBC 3.25 L Hgb 10.0 L Hct 29.4 L MCV 90.6 MCH 30.8 MCHC 34.0 RDW 17.9 H Plt Count 117 L MPV 9.1 Absolute Neuts (auto) 4.1 Neutrophils % 66.4 Lymphocytes % 21.0 Monocytes % 8.5 Eosinophils % 3.2 Basophils % 0.9 Nucleated RBC % 0 PTT (Actin FS) 30.7 Sodium Potassium Chloride Carbon Dioxide Anion Gap BUN Creatinine Creat Clearance w eGFR Random Glucose Calcium Hep C Ab Diagnostic <0.1 Liver Fibrosis Interp 06/06/18 05:30 WBC RBC Hgb Hct MCV MCH MCHC RDW Plt Count MPV Absolute Neuts (auto) Neutrophils % Lymphocytes % Monocytes % Eosinophils % Basophils % Nucleated RBC % PTT (Actin FS) Sodium 142 Potassium 3.9 Chloride 102 Carbon Dioxide 28 Anion Gap 12 BUN 41 H Creatinine 7.9 H* Creat Clearance w eGFR 6.71 Random Glucose 86 Calcium 7.8 L Hep C Ab Diagnostic Liver Fibrosis Interp Active Medications Generic Name Dose Route Start Last Admin Trade Name Freq PRN Reason Stop Dose Admin Acetaminophen 650 mg 06/04/18 01:11 06/06/18 06:21 Tylenol - PO 650 mg Q6H PRN Administration Fever Or Pain Albuterol Sulfate 2 puff 06/05/18 11:35 Ventolin Hfa Inhaler - IH Q4H PRN SHORT OF BREATH/WHEEZING Albuterol/Ipratropium 1 amp 06/05/18 11:00 06/06/18 11:44 Duoneb - NEB 1 amp Q4H TL Administration Aspirin 81 mg 06/05/18 10:00 06/06/18 10:06 Ecotrin - PO 81 mg DAILY TL Administration Atorvastatin Calcium 20 mg 06/05/18 22:00 06/05/18 21:03 Lipitor - PO 20 mg HS TL Administration Epoetin Efrain 3,000 unit 06/06/18 13:45 Procrit - IVPUSH 06/06/18 13:46 ONCE ONE Heparin Sodium (Porcine) 5,000 unit 06/04/18 22:00 06/06/18 10:06 Heparin - SQ 5,000 unit BID TL Administration Heparin Sodium (Porcine) 1,000 unit 06/06/18 13:45 Heparin - IVPUSH 06/06/18 13:46 ONCE ONE Lisinopril 40 mg 06/05/18 10:00 06/05/18 15:44 Prinivil PO 40 mg DAILY TL Administration Nicotine 7 mg 06/04/18 10:00 06/06/18 10:06 Nicoderm Patch - TD 7 mg DAILY TL Administration Prednisone 40 mg 06/06/18 11:15 Deltasone - PO DAILY TL Fluticasone/Salmeterol 1 puff 06/05/18 11:45 06/06/18 10:06 Advair 100mcg/50mcg - IH 1 puff BID TL Administration Zolpidem Tartrate 5 mg 06/05/18 22:00 06/05/18 21:04 Ambien - PO 5 mg HS PRN Administration INSOMNIA ASSESSMENT/PLAN: MICROBIOLOGY Urine culture 06/05/18: no growth obtained IMAGING CXR 06/03/18: "PA and lateral projections of the chest are submitted. The heart size is enlarged. Median sternotomy sutures are present. There are increased interstitial markings diffusely consistent with pulmonary vascular congestion. Small pleural effusions are also noted. There is tortuosity and calcification of the thoracic aorta and degenerative arthritis of the thoracic spine. IMPRESSION: CHF" CT head 06/04/18: "No CT evidence of acute intracranial pathology." Echocardiogram 06/04/18: Severe dilation of left and right atria. Mild mitral regurgitation. Severe tricuspid regurgitation. Normal right ventricular systolic pressure. Normal size aortic root. Normal left ventricular size, thickness, function, ejection fraction, and wall motion. Lexiscan stress ecg 06/05/18: "EXERCISE HEMODYNAMICS: Resting heart rate was 57 BPM, peak Lexiscan infusion heart rate was 71 BPM representing -- of the maximum predicted heart rate. Resting blood pressure was 187/76 mg/Hg, peak Lexiscan infusion blood pressure was 187/76 mm/Hg. ELECTROCARDIOGRAPHIC FINDINGS: Baseline sr. No ischemic ecg changes or arrhythmias with lexiscan. No chest pain. GATED PERFUSION SCAN AND SPECT IMAGES: Normal myocardial perfusion. Normal LV wall motion. LVEF 52%. FINAL CONCLUSION: EXERCISE RESULTS: Normal lexiscan stress ecg. NUCLEAR RESULTS : Normal myocardial perfusion. LVEF 52%" Abdominal US 06/05/18: "1. Mild diffuse fatty infiltration of the liver. 2. No evidence of cholelithiasis. There is biliary sludge within the gallbladder. 3. Atrophic right kidney. Please see above discussion." Hospital course: Patient is a 77 y/o M w/ PMHx ESRD on HD M/W/F, CAD s/p CABG, HTN, HLD, EtOH abuse, 50+ pack year smoking history without PFTs, on no home medications but does attend dialysis, p/w progressively worsening chest pain, SOB at rest and worsened by exertion, fatigue, orthopnea, PND, productive cough. States the symptoms began together without clear enticing event. Chest pain described as sharp with pressure overlying center of chest. Able to walk approx 10 feet which exacerbates the pain and shortness of breath. Pain is allleviated with rest. Additionally reports recent bouts of diarrhea after exposure to unknown ABx ~10 days [employer] for unknown reasons. Denies sick contacts, recent travel, or immobilization. Admitted for NSTEMI vs decompensated CHF vs. COPD exacerbation. Cardiology and nephrology were consulted. EKG showed no acute ischemic events, but serial tropinins were slightly positive albeit downtrending, most likely representing demand ischemia in the setting of heart failure rather than ACS. Imaging is as above: pertinently, CXR showed pulmonary edema consistent with CHF ; echocardiogram showed bilateral atrial dilation and AV valve regurgitation, severely in the tricuspid valve; stress test was unremarkable. Patient's normal hemodialysis schedule was maintained. Patient was initiated on aspirin, atorvastatin, lisinopril, metoprolol tartrate, duonebs, advair, albuterol rescue inhaler. Additionally, he was started on a short course of prednisone with taper plan following discharge. He was evaluated by respiratory therapy and determined not to require supplemental oxygen. He was evaluated by physical therapy and determined to be able to ambulate safely. He was discharged on on the above medications, with Spiriva substituted for duonebs, and referred to outpatient followup with primary care, cardiology, nephrology, and pulmonology. The importance of taking medications exactly as prescribed without missing doses, and attending all followup medical appointments, as well as the risks of failing to do so, were discussed at length with the patient, and all of his questions addressed.
[2018-06-06] MEDS ORDERED: EPOETIN ALFA 3,000 UNIT/1 ML ML IVPUSH ONE (13:45)
[2018-06-06] MEDS ORDERED: EPOETIN ALFA 2,000 UNIT/1 ML VIAL IVPUSH ONE (13:45)
[2018-06-06] MEDS ORDERED: HEPARIN NA (PORCINE) 5,000 UNITS/ML 1ML VIAL IVPUSH ONE (13:45)
--- NOTE | 2018-06-06 14:37 | PN ---
Teaching Attending Note Name of Resident: Ro Martinez (Nephrology) ATTENDING PHYSICIAN STATEMENT I saw and evaluated the patient. I reviewed the resident's note and discussed the case with the resident. I agree with the resident's findings and plan as documented. Nephrology Pt seen and examined at bedside. He is tolerating HD. Current Medications Generic Name Dose Route Start Last Admin Trade Name Freq PRN Reason Stop Dose Admin Acetaminophen 650 mg 06/04/18 01:11 06/06/18 06:21 Tylenol - PO 650 mg Q6H PRN Administration Fever Or Pain Albuterol Sulfate 2 puff 06/05/18 11:35 Ventolin Hfa Inhaler - IH Q4H PRN SHORT OF BREATH/WHEEZING Albuterol/Ipratropium 1 amp 06/05/18 11:00 06/06/18 14:08 Duoneb - NEB 1 amp Q4H TL Administration Aspirin 81 mg 06/05/18 10:00 06/06/18 10:06 Ecotrin - PO 81 mg DAILY TL Administration Atorvastatin Calcium 20 mg 06/05/18 22:00 06/05/18 21:03 Lipitor - PO 20 mg HS TL Administration Heparin Sodium (Porcine) 5,000 unit 06/04/18 22:00 06/06/18 10:06 Heparin - SQ 5,000 unit BID TL Administration Lisinopril 40 mg 06/05/18 10:00 06/05/18 15:44 Prinivil PO 40 mg DAILY TL Administration Nicotine 7 mg 06/04/18 10:00 06/06/18 10:06 Nicoderm Patch - TD 7 mg DAILY TL Administration Prednisone 40 mg 06/06/18 11:15 Deltasone - PO DAILY TL Fluticasone/Salmeterol 1 puff 06/05/18 11:45 06/06/18 10:06 Advair 100mcg/50mcg - IH 1 puff BID TL Administration Zolpidem Tartrate 5 mg 06/05/18 22:00 06/05/18 21:04 Ambien - PO 5 mg HS PRN Administration INSOMNIA Last Vital Signs Temp Pulse Resp BP Pulse Ox 98.2 F 60 16 154/78 98 06/06/18 14:00 06/06/18 14:00 06/06/18 14:00 06/06/18 14:00 06/06/18 14:07 gen pt appears comfortable cardio s1s2 pulm clear GI soft, bs pos non tender circ pos pulses neuro awake and alert, mental status at baseline skin neg rash psych anxious Impression 1. ESRD 2. anemia 3. CAD 4. r/o chf 5. hx etoh abuse 6. active smoker 7. non compliance 8. HTN Plan - HD today - discussed importance of compliance and follow up - pt now off of oxygen - urine culture no growth - will follow Dr Mei
--- NOTE | 2018-06-06 14:38 | PN ---
Teaching Attending Note Name of Resident: Castillo Desouza ATTENDING PHYSICIAN STATEMENT I saw and evaluated the patient. I reviewed the resident's note and discussed the case with the resident. I agree with the resident's findings and plan as documented. SUBJECTIVE: No fever or chills . No abd pain , SOB continues. dry cough . tired when he walks . has fatigue OBJECTIVE: NAD. MMM CV: RRR. Ext: no edema. Lungs: decreased breath sounds at bases, with bibasilar crackles and scattered wheezes ASSESSMENT AND PLAN: 77 y/o man with h/o CAD, s/p CABG, stents, ESRD MWF, HTN, HLP, and other medical problems who presented with SOB . He was found to have volume overload 1- Acute hypoxic resp failure due to acute diastolic heart failure, and possible component of Acute copd exacerbation SAt O2 > 92 at rest and on exertion - start short course of predniosne - cont Nebs and inhalers - need pulm f/u for PFTS and to establish diagnosis of COPd ( smoked for 60 years ) 2- Elevated trop:likely demand ischemia in setting of acute hypoxic resp failure. Neg stress test - cont ASA ,and BB. - cont statin , at 20 . d/w card whi indicates the need for statin . 3- HTN -cont lisinopril and BB 4- dysuria : U cx neg . will dc Abx . today he reports the dysuria for many years 7- ESRD: HD per schedule Dispo: Fl home today. VNS I walked patient in [address] and he was very steady (about 40 feet ) . was tired at the end of the walk. He refuses to go to rehab, and wants to go home at [place] Medically ready for DC
--- NOTE | 2018-06-06 14:39 | DS ---
Physical Exam: SUBJECTIVE: Patient seen and examined at bedside. Continues to complain of excessive fatigue, wheezing, shortness of breath at rest and worsened by exertion, chest tightness, congestion, cough. OBJECTIVE: Vital Signs Period Temp Pulse Resp BP Sys/Aparicio Pulse Ox Last 24 Hr 97.3 F-98.5 F 59-67 16-22 116-168/64-90 94-98 PHYSICAL EXAM GENERAL: The patient is awake, alert, and fully oriented, in no acute distress. HEAD: NC/AT EYES: PERRLA, EOMI, sclera anicteric ENT: oropharynx clear without exudates, moist mucous membranes NECK: Trachea midline, full range of motion, supple. LUNGS: wheezing and coarse crackles b/l HEART: Regular rate and rhythm, S1, S2 without murmur, rub or gallop. ABDOMEN: +bs, soft, non-distended, TTP in RUQ EXTREMITIES: 2+ pulses, warm, well-perfused, no edema NEUROLOGICAL: CNII-XII intact b/l, 5/5 strength x 4 extremities, sensorium grossly intact LABS Laboratory Results - last 24 hr 06/04/18 06/06/18 06/06/18 19:30 05:30 05:30 WBC 6.1 RBC 3.25 L Hgb 10.0 L Hct 29.4 L MCV 90.6 MCH 30.8 MCHC 34.0 RDW 17.9 H Plt Count 117 L MPV 9.1 Absolute Neuts (auto) 4.1 Neutrophils % 66.4 Lymphocytes % 21.0 Monocytes % 8.5 Eosinophils % 3.2 Basophils % 0.9 Nucleated RBC % 0 PTT (Actin FS) 30.7 Sodium Potassium Chloride Carbon Dioxide Anion Gap BUN Creatinine Creat Clearance w eGFR Random Glucose Calcium Hep C Ab Diagnostic <0.1 Liver Fibrosis Interp 06/06/18 05:30 WBC RBC Hgb Hct MCV MCH MCHC RDW Plt Count MPV Absolute Neuts (auto) Neutrophils % Lymphocytes % Monocytes % Eosinophils % Basophils % Nucleated RBC % PTT (Actin FS) Sodium 142 Potassium 3.9 Chloride 102 Carbon Dioxide 28 Anion Gap 12 BUN 41 H Creatinine 7.9 H* Creat Clearance w eGFR 6.71 Random Glucose 86 Calcium 7.8 L Hep C Ab Diagnostic Liver Fibrosis Interp MICROBIOLOGY Urine culture 06/05/18: no growth obtained IMAGING CXR 06/03/18: "PA and lateral projections of the chest are submitted. The heart size is enlarged. Median sternotomy sutures are present. There are increased interstitial markings diffusely consistent with pulmonary vascular congestion. Small pleural effusions are also noted. There is tortuosity and calcification of the thoracic aorta and degenerative arthritis of the thoracic spine. IMPRESSION: CHF" CT head 06/04/18: "No CT evidence of acute intracranial pathology." Echocardiogram 06/04/18: Severe dilation of left and right atria. Mild mitral regurgitation. Severe tricuspid regurgitation. Normal right ventricular systolic pressure. Normal size aortic root. Normal left ventricular size, thickness, function, ejection fraction, and wall motion. Lexiscan stress ecg 06/05/18: "EXERCISE HEMODYNAMICS: Resting heart rate was 57 BPM, peak Lexiscan infusion heart rate was 71 BPM representing -- of the maximum predicted heart rate. Resting blood pressure was 187/76 mg/Hg, peak Lexiscan infusion blood pressure was 187/76 mm/Hg. ELECTROCARDIOGRAPHIC FINDINGS: Baseline sr. No ischemic ecg changes or arrhythmias with lexiscan. No chest pain. GATED PERFUSION SCAN AND SPECT IMAGES: Normal myocardial perfusion. Normal LV wall motion. LVEF 52%. FINAL CONCLUSION: EXERCISE RESULTS: Normal lexiscan stress ecg. NUCLEAR RESULTS : Normal myocardial perfusion. LVEF 52%" Abdominal US 06/05/18: "1. Mild diffuse fatty infiltration of the liver. 2. No evidence of cholelithiasis. There is biliary sludge within the gallbladder. 3. Atrophic right kidney. Please see above discussion." HOSPITAL COURSE: Date of Admission:06/03/18 Patient is a 77 y/o M w/ PMHx ESRD on HD M/W/F, CAD s/p CABG, HTN, HLD, EtOH abuse, 50+ pack year smoking history without PFTs, on no home medications but does attend dialysis, p/w progressively worsening chest pain, SOB at rest and worsened by exertion, fatigue, orthopnea, PND, productive cough. States the symptoms began together without clear enticing event. Chest pain described as sharp with pressure overlying center of chest. Able to walk approx 10 feet which exacerbates the pain and shortness of breath. Pain is allleviated with rest. Additionally reports recent bouts of diarrhea after exposure to unknown ABx ~10 days [employer] for unknown reasons. Denies sick contacts, recent travel, or immobilization. EKG showed no acute ischemic trauma, but serial tropinins were slightly positive albeit downtrending, most likely representing demand ischemia in the setting of heart failure rather than ACS. Admitted for NSTEMI vs decompensated CHF vs. COPD exacerbation. Cardiology and nephrology were consulted. Imaging is as above: pertinently, CXR showed pulmonary edema consistent with CHF; echocardiogram showed normal EF, bilateral atrial dilation and bilateral AV valve regurgitation, severely in the tricuspid valve; stress test was unremarkable. Patient additionally complained of dysuria, UCx was negative. C Diff studies were ordered given patient's h/o diarrhea and ABx exposure but patient was constipated throughout hospitalization. Patient's normal hemodialysis schedule was maintained. Although no PFTs are available, his clinical picture and history were highly concerning for COPD. Patient was initiated on aspirin, atorvastatin, lisinopril, metoprolol tartrate, duonebs, advair, albuterol rescue inhaler. One dose of Lasix was given; otherwise volume status was addressed by hemodialysis rather than diuresis. He was started on a short course of prednisone with taper plan following discharge. He was evaluated by respiratory therapy and determined not to require supplemental oxygen. He was evaluated by physical therapy and determined to be able to ambulate safely. He was discharged on 06/06/18 on the above medications, with Spiriva substituted for duonebs, and referred to outpatient followup with primary care, cardiology, nephrology, and pulmonology. The importance of taking medications exactly as prescribed without missing doses, and attending all followup medical appointments, as well as the risks of failing to do so, were discussed at length with the patient, and all of his questions addressed. Date of Discharge: 06/06/18 Minutes to complete discharge: 40 Discharge Summary Reason For Visit: SHORTNESS OF BREATH,ELEVATED TROPONIN LEVEL Current Active Problems CHF exacerbation (Acute) Chest pain (Acute) Diastolic congestive heart failure (Acute) Dyspnea on exertion (Acute) ESRD (end stage renal disease) (Acute) Elevated troponin (Acute) SOB (shortness of breath) (Acute) Shortness of breath at rest (Acute) CAD (coronary artery disease) (Chronic) Condition: Improved - Instructions Diet, Activity, Other Instructions: You were hospitalized due to chest pain, shortness of breath, congestion in your lungs, and fatigue. You have chronic diseases of your heart, lungs, and kidneys, all of which have contributed to your symptoms. You have been given medications to relieve the congestion and assist in your breathing, and you have received dialysis to treat your chronic kidney disease. These treatments will gradually relieve your symptoms but will take time to do so. You were evaluated by respiratory therapy, and it was determined that you have no need for supplemental oxygen. You were evaluated by physical therapy, and it was determined that you are able to walk safely under your own strength. Referrals You have been given referrals to the following providers: Dr. Hidalgo, primary care Dr. Mei, nephrology Dr. Cuadra, cardiology Dr. Gomes, pulmonology Please be certain to have followup evaluations with these doctors within one week of your discharge. Medications You are being prescribed a one month supply of the following medications: Advair inhaler: 1 dose twice per day Spiriva inhaler: 1 dose daily Albuterol inhaler: 2 puffs every 4 hours *if you feel short of breath* Aspirin: 81 mg daily Lisinopril: 40 mg daily Lopressor: 12.5 mg twice per day Atorvastatin: 20 mg nightly Please take these medications exactly as directed and do not make changes to your medication regimen except at the direction of a doctor. call your doctor for refills Additionally, you are being prescribed a short course of a steroid, prednisone, to assist in your breathing. You took 40 mg today. Starting tomorrow, please take the following doses of prednisone: 1 day after discharge: 40mg (4 pills) 2 days after discharge: 40mg (4 pills) 3 days after discharge: 30 mg (3 pills) 4 days after discharge: 20 mg (2 pills) 5 days after discharge: 10mg (1 pill) 6 days after discharge and later: no further prednisone Medical recommendations You require long-term care from the fertilizer supervisor and religious education coordinator for your known heart and kidney disease. Additionally, it is strongly suspected that you have a lung disease called COPD, which is usually associated with a history of smoking. You are being referred to a account manager to evaluate you for this condition and long-term optimization of your breathing. Please be certain to keep your appointments with all of these doctors and with your primary care doctor, and to continue to attend your ongoing appointments as your doctors direct you. Please take all of your medications every day exactly as prescribed. Failing to attend your doctors' appointments or take your medication places you at risk of serious disease, permanent injury, and . Please also maintain physical activity to the best of your tolerance. If you experience any new or worsening chest pain, shortness of breath, pain with breathing, sudden weakness or numbness, if you stop urinating, or if you experience any other new symptom, please return to the Emergency Department. Referrals: Jonathan Gomes MD [Staff Physician] - 1 Week Negro Hidalgo MD [Primary Care Provider] - 1 Week Andi Cuadra MD [Staff Physician] - 1 Week Nicole Mei MD [Staff Physician] - 1 Week Disposition: VNS/HOME HEALTH CARE - Home Medications Comprehensive Discharge Medication List: Ambulatory Orders Calcium (Oyster Shell) [Os-Reuben 500MG -] 500 mg PO BID #60 tablet 03/22/16 Albuterol Sulfate Inhaler - [Ventolin HFA Inhaler -] 2 puff IH Q4H PRN #2 inhaler 06/06/18 Aspirin Coated [Ecotrin -] 81 mg PO DAILY #30 tablet.ec 06/06/18 Atorvastatin Ca [Lipitor] 20 mg PO HS #30 tablet 06/06/18 Lisinopril [Prinivil -] 40 mg PO DAILY #30 tablet 06/06/18 Metoprolol Tartrate [Lopressor -] 12.5 mg PO BID #60 tablet 06/06/18 Prednisone See Taper PO DAILY #14 tablet 06/06/18 Salmeterol/Fluticasone [Advair 100Mcg/50Mcg -] 1 puff IH BID #2 inhaler Tiotropium [place] [Spiriva] 1 inh PO DAILY #30 inhaler 06/06/18 This patient is new to me today: No Emergency Visit: No Critical Care patient: No - Discharge Referral Referred to [facility] Yes Physician Referral: Negro Eden MD ([facility])
[2018-06-06] MEDS: LISINOPRIL 20 MG TABLET (FP) PO SCH (17:34)
[2018-06-06] MEDS ORDERED: ALBUTEROL SO4 2.5/IPRATROPIUM 0.5 INH SOL 3 ML VIAL.NEB. NEB SCH (18:00)
[2018-06-06 18:09] VITALS: BP 148/65; PULSE 68; TEMP 98.4
[2018-06-08 08:09] LABS: HBSAG SCREEN Negative (Negative); HEP B CORE AB, TOT Positive (Negative)
[2018-06-09 10:20] LABS: HEP A AB, IGM Positive (Negative)
== END 2018-06-06 17:55 | disposition home health service (06) | DRG 291 ==
LOC: JER 16:00 → JERBED 20:00 → J4W 23:12
PROVIDERS: ADMIT Internal Medicine; ATTEND Internal Medicine
PROC: 5A09357 Assistance with Respiratory Ventilation, Less than 24 Consecutive Hours, Continuous Positive Airway Pressure (ICD-10-PCS; 2018-06-03)
PROC: 5A1D70Z Performance of Urinary Filtration, Intermittent, Less than 6 Hours Per Day (ICD-10-PCS; principal; 2018-06-04)
DX: I13.2 Hypertensive heart and chronic kidney disease with heart failure and with stage 5 chronic kidney disease, or end stage renal disease (principal); N18.6 End stage renal disease; I50.31 Acute diastolic (congestive) heart failure; J96.01 Acute respiratory failure with hypoxia; R64 Cachexia; I24.8 Other forms of acute ischemic heart disease; J44.1 Chronic obstructive pulmonary disease with (acute) exacerbation; I16.0 Hypertensive urgency; D50.9 Iron deficiency anemia, unspecified; I45.10 Unspecified right bundle-branch block; I36.1 Nonrheumatic tricuspid (valve) insufficiency; I25.10 Atherosclerotic heart disease of native coronary artery without angina pectoris; Z95.1 Presence of aortocoronary bypass graft; Z99.2 Dependence on renal dialysis; Z68.20 Body mass index [BMI] 20.0-20.9, adult; K64.4 Residual hemorrhoidal skin tags; E78.5 Hyperlipidemia, unspecified; F10.20 Alcohol dependence, uncomplicated; F17.210 Nicotine dependence, cigarettes, uncomplicated; K21.9 Gastro-esophageal reflux disease without esophagitis; R19.7 Diarrhea, unspecified; R30.0 Dysuria; R51 Headache; I25.2 Old myocardial infarction; Z91.14 Patient's other noncompliance with medication regimen
CPT/HCPCS: 36415; 36600; 70450-TC; 71046-TC-FY; 76705-TC; 78452-TC; 80048; 80053; 80061; 81003; 81015; 82272; 82330; 82550; 82803; 83605; 83690; 83721; 83735; 83880; 84100; 84484; 85025; 85027; 85610; 85730; 86704; 86706; 86708; 86803; 87086; 87340; 93005; 93010; 93017; 93306-TC; 94640; 94660; 94761; 97116-GP; 97161-GP; 99285-25; A9502; J0885; J1644; J2785; J7620

== ENCOUNTER 2018-09-25 00:08 | Emergency (ER) | payer OTHER ==
[2018-09-25 00:14] VITALS: BMI 20.6
--- NOTE | 2018-09-25 00:43 | PDOC ---
History of Present Illness - General Chief Complaint: Injury Stated Complaint: DIFFICULTY BREATHING Time Seen by Provider: 09/25/18 00:29 History Source: Patient Exam Limitations: No Limitations - History of Present Illness Initial Comments: 09/25/18 00:41 Pt is a 77yo m with PMH of ESRD on HD MWF, CAD s/p CABG, COPD, HTN, HLD presenting to ED with complaints of L sided rib pain after falling in his tub 2 days ago. Pt said he tried getting out of his tub and fell on his chest. Since then he has been having pain with movement, breathing and coughing. Pt said he has been taking Tylenol but it does not help. He got his dialysis today. He denies hitting his head, losing consciousness. He admits to SOB due to the pain. Denies fever, chills. He is not taking any blood thinners. PMD: [place] Neph: [place] PMH: see hpi PSH: see hpi Meds: see med rec Allergies: nkda Past History - Past Medical History Allergies/Adverse Reactions: Allergies Allergy/AdvReac Type Severity Reaction Status Date / Time No Known Allergies Allergy Verified 09/25/18 00:12 Home Medications: Ambulatory Orders Calcium (Oyster Shell) [Os-Reuben 500MG -] 500 mg PO BID #60 tablet 03/22/16 Albuterol Sulfate Inhaler - [Ventolin HFA Inhaler -] 2 puff IH Q4H PRN #2 inhaler 06/06/18 Aspirin Coated [Ecotrin -] 81 mg PO DAILY #30 tablet.ec 06/06/18 Atorvastatin Ca [Lipitor] 20 mg PO HS #30 tablet 06/06/18 Lisinopril [Prinivil -] 40 mg PO DAILY #30 tablet 06/06/18 Metoprolol Tartrate [Lopressor -] 12.5 mg PO BID #60 tablet 06/06/18 Prednisone See Taper PO DAILY #14 tablet 06/06/18 Salmeterol/Fluticasone [Advair 100Mcg/50Mcg -] 1 puff IH BID #2 inhaler Tiotropium [place] [Spiriva] 1 inh PO DAILY #30 inhaler 06/06/18 Docusate Sodium 100 mg PO DAILY #7 capsule 09/25/18 Oxycodone HCl/Acetaminophen [Percocet 5-325 mg Tablet] 1 tab PO Q6H #20 tablet MDD 4 09/25/18 Anemia: No Asthma: No Cancer: No Cardiac Disorders: Yes (cad) CVA: No COPD: No CHF: No Dementia: No Diabetes: No Dialysis: Yes (lt arm fistula, m-w-f h.d) GI Disorders: No Disorders: No HTN: Yes Hypercholesterolemia: Yes Liver Disease: No Seizures: No Thyroid Disease: Yes (Dialysi:Sat-Sat-Sat) - Surgical History Abdominal Surgery: No Appendectomy: No Cardiac Surgery: Yes (quad bipass) Lung Surgery: No Neurologic Surgery: No Orthopedic Surgery: No - Immunization History Immunization Up to Date: No - Suicide/Smoking/Psychosocial Hx Smoking History: Never smoked Have you smoked in the past 12 months: No Number of Cigarettes Smoked Daily: 5 Information on smoking cessation initiated: No 'Breaking Loose' booklet given: 01/27/14 Hx Alcohol Use: No Drug/Substance Use Hx: No Substance Use Type: None Review of Systems - Review of Systems Constitutional: No: Chills, Fever HEENTM: No: Recent change in vision Respiratory: Yes: Shortness of Breath. No: Cough, Wheezing, Hemoptysis Cardiac (ROS): Yes: See HPI, Chest Pain. No: Lightheadedness, Palpitations, Syncope, Chest Tightness ABD/GI: No: Constipated, Diarrhea, Nausea, Vomiting, Abdominal cramping : No: Burning, Dysuria Musculoskeletal: Yes: See HPI, Other (left sided rib pain). No: Back Pain, Joint Pain, Muscle Weakness Integumentary: No: Lesions, Rash Neurological: No: Headache, Numbness, Tingling *Physical Exam - Vital Signs Last Vital Signs Temp Pulse Resp BP Pulse Ox 99.6 F 79 24 H 191/81 H 91 L 09/25/18 00:32 09/25/18 00:13 09/25/18 00:13 09/25/18 00:13 09/25/18 00:13 - Physical Exam General Appearance: Yes: Nourished, Appropriately Dressed, Mild Distress HEENT: positive: EOMI, LUKE. negative: Pale Conjunctivae, Scleral Icterus (R), Scleral Icterus (L) Neck: positive: Trachea midline, Supple. negative: Carotid bruit, Lymphadenopathy (R), Lymphadenopathy (L) Respiratory/Chest: positive: Chest Tender (L sided. No crepitus), Wheezing, Other (no crepitus). negative: Paradoxal Breathing, Crackles, Rales, Rhonchi Cardiovascular: positive: Regular Rhythm, Regular Rate, S1, S2. negative: Edema , JVD, Murmur Vascular Pulses: Carotid (R): 2+, Carotid (L): 2+, Dorsalis-Pedis (R): 2+, Doralis-Pedis (L): 2+ Gastrointestinal/Abdominal: positive: Normal Bowel Sounds, Soft. negative: Guarding, Rebound, Tenderness, Hernia Musculoskeletal: positive: Other (left sided chest tenderness, diffuse). negative: CVA Tenderness Extremity: positive: Normal Capillary Refill. negative: Swelling, Calf Tenderness Integumentary: positive: Normal Color, Dry, Warm Neurologic: positive: sales service representative II-XII NML intact, Fully Oriented, Alert, Normal Mood/ Affect, Normal Response, Motor Strength 03/15 ED Treatment Course - LABORATORY CBC & Chemistry Diagram: 09/25/18 00:55 09/25/18 00:55 Medical Decision Making - Medical Decision Making 09/25/18 06:52 Pt is a 77yo m with PMH of ESRD on HD MWF, CAD s/p CABG, COPD, HTN, HLD presenting to ED with complaints of L sided rib pain after falling in his tub 2 days ago Vitals: Selected Entries 09/25/18 00:37 Temperature 99.2 F Pulse Rate [ 81 Left Radial] Respiratory 22 H Rate Blood Pressure 180/79 H [Left Arm] Blood Pressure 112 Mean [Left Arm] O2 Sat by Pulse 98 Oximetry (%) Oxygen Flow 2 Rate PE: L chest tenderness, no crepitus. crackles in lung waite bilaterally. No paradoxical breathing. Ddx: fracture, ptx, pna, copd exacerabation Pt hypertensive however not having symptoms due to hypertensive emergency/ urgency. Possibly elevated due to pain. Herberth order cxr to rule out lung puncture/ptx and rib xr to check for fracure. Will give morphine for pain. Labs ordered due to pt history. Pt had dialysis today. Labs near baseline (hgb, cr, trop). Low suspicion for cardiac pathology causing pt symptoms at this time. hypertension could cause changes however pt at baseline lab levels. CXR did not show signs of pneumothorax. rib XR showed nondisplaced fracture of 6th rib. Pt pain controlled with morhpine. Will give percocet to see if pt tolerates po pain control. Will give incentive spirometer and colace if percocet helps. Pt reports feeling better with percocet. advised pt to see pmd in the next 5 days for further evaluation. Pt agrees to plan. NOt complaining of sob from lung pathology, mainly from pain. holding off on duoneb at this time. Pt is ambulatory, has follow up and pain controlled. can be dc home. given strict return precautions. *DC/Admit/Observation/Transfer Diagnosis at time of Disposition: Rib fracture Qualifiers: Encounter type: initial encounter Rib fracture type: single rib Fracture type: closed Laterality: left Qualified Code(s): S22.32XA - Fracture of one rib, left side, initial encounter for closed fracture - Discharge Dispostion Disposition: HOME Condition at time of disposition: Good Decision to Admit order: No - Prescriptions Prescriptions: Docusate Sodium 100 mg PO DAILY #7 capsule Oxycodone HCl/Acetaminophen [Percocet 5-325 mg Tablet] 1 tab PO Q6H #20 tablet MDD 4 - Referrals Referrals: Negro Hidalgo MD [Primary Care Provider] - - Patient Instructions Printed Discharge Instructions: DI for Rib Fracture Additional Instructions: You were seen here today because you fell and had left sided pain. Xray shows that you have a rib fracture in your 6th rib. This will end up healing on it's own. You have been given an incentive spirometer. Please use it daily every 2-3 hours or so for around 10 minutes. You need to take deep breaths so that a pneumonia does not develop. PLEASE MAKE AN APPOINTMENT WITH DR. HIDALGO IN THE NEXT FEW DAYS, NO LATER THAN 5 DAYS FROM TODAY You have been given a pain medication called Percocet. Please take it as directed when you are in pain. You have also been given a stool softener because Percocet can cause constipation. Please stop taking Percocet if you develop a rash or any other reaction. Remember to keep your dialysis appointments! Please come back to the emergency room if your pain gets worse, you develop fever, you have a hard time breathing, you start coughing up phlegm, you have chest pains or if any new concerning symptom develops. Thank you - Post Discharge Activity
[2018-09-25] MEDS ORDERED: morphine CARPU-JECT 2 MG/1 ML DISP.SYRIN IM ONE (00:57)
--- NOTE | 2018-09-25 01:04 | PDOC ---
Attending Attestation - HPI HPI: 09/25/18 01:20 The patient is a 77-year-old male with past medical history significant for ESRD (on HD MWF), CAD s/p CABG, COPD, HTN, and HLD presents to the emergency department with s/p a fall 2 days ago. The patient reports 2 days prior he suffered a fall in the bathtub, presents today with L. sided rib pain. The patient states he fell on his chest, since the fall hes been having pain with movement, breathing or coughing, no relief noted with Tylenol. Denies head injury, LOC, fever, chills, use of AC or blood thinner. Allergies: NKA PCP: Dr. Hidalgo. - Medical Decision Making 09/25/18 01:20 Documentation prepared by Jennifer Dye, acting as medical device for Micky Hutchison MD. <Jennifer Dye - Last Filed: 09/25/18 01:20> - Resident Resident Name: Rose Villasenor - ED Attending Attestation I have performed the following: I have examined & evaluated the patient, The case was reviewed & discussed with the resident, I agree w/resident's findings & plan, Exceptions are as noted - Physicial Exam PE: 09/25/18 02:40 NAD, AOx3 Normal wob, faint, scattered wheeze, good air movement +TTP over L side of chest wall 2-3 ribs below nipple, anterior chest wall, no crepitus - Medical Decision Making 09/25/18 02:41 77M with cardiac risk factors here with persistent L sided chest pain after mechanical fall onto L chest in bath tub f/u labs, cxr, rib xr analgesia re-eval dispo per clinical course 09/25/18 04:26 XR consistent with fx of rib 6 analgesia with po medications incentive spirometer f/u pcp return precautions <Micky Hutchison - Last Filed: 09/25/18 04:26>
[2018-09-25 01:06] LABS: BASO % 1.3 % (0-2.0); EOS % 1.8 % (0-4.5); HEMATOCRIT 28.4 % (35.4-49); HEMOGLOBIN 9.5 GM/dL (11.7-16.9); LYMPH % 11.1 % (8-40); MCHC 33.4 g/dl (32.0-35.9); MEAN CELL VOLUME 95.7 fl (80-96); MEAN PLT VOLUME 8.9 fl (7.5-11.1); MONO % 7.8 % (3.8-10.2); PLATELET COUNT 138 K/MM3 (134-434); RBC 2.97 M/mm3 (4.00-5.60); RDW 17.1 % (11.9-15.9); WHITE BLOOD COUNT 5.7 K/mm3 (4.0-10.0)
[2018-09-25] MEDS ORDERED: morphine SULFATE 4 MG/ML VIAL ONE (01:25)
[2018-09-25 01:38] LABS: ALBUMIN 2.8 g/dl (3.4-5.0); ALK PHOS 156 U/L (45-117); ANION GAP 8 MMOL/L (8-16); BILIRUBIN,TOTAL 0.7 mg/dL (0.2-1); BLOOD UREA NITROGEN 28 mg/dL (7-18); CALCIUM 8.3 mg/dL (8.5-10.1); CHLORIDE 100 mmol/L (98-107); CO2 28 mmol/L (21-32); CREATININE 5.6 mg/dL (0.55-1.3); GLUCOSE,RANDOM 104 mg/dL (74-106); POTASSIUM 4.2 mmol/L (3.5-5.1); SGOT/AST 34 U/L (15-37); SGPT/ALT 24 U/L (13-61); SODIUM 137 mmol/L (136-145); TOT PROT 6.4 g/dl (6.4-8.2)
[2018-09-25 05:21] VITALS: BP 145/72; PULSE 80; TEMP 98
--- NOTE | 2018-09-25 11:52 | EKG ---
Test Reason : Blood Pressure : / mmHG Vent. Rate : 075 BPM Atrial Rate : 075 BPM P-R Int : 150 ms QRS Dur : 092 ms QT Int : 408 ms P-R-T Axes : 040 005 032 degrees QTc Int : 455 ms NORMAL SINUS RHYTHM NORMAL ECG WHEN COMPARED WITH ECG OF 04-JUN-2018 01:29, MINIMAL CRITERIA FOR INFERIOR INFARCT ARE NO LONGER PRESENT NONSPECIFIC T WAVE ABNORMALITY NO LONGER EVIDENT IN LATERAL LEADS Confirmed by AL LOJA, SANTA ([id number]) on 09/25/2018 11:52:47 AM Referred By: Confirmed By:SANTA MELENDEZ MD
== END 2018-09-25 05:20 | disposition home or self-care (01) ==
LOC: JER 00:08
PROC: 3E023NZ Introduction of Analgesics, Hypnotics, Sedatives into Muscle, Percutaneous Approach (ICD-10-PCS; principal; 2018-09-25)
DX: S22.32XA Fracture of one rib, left side, initial encounter for closed fracture (principal); W18.2XXA Fall in (into) shower or empty bathtub, initial encounter; Y93.89 Activity, other specified; Y92.002 Bathroom of unspecified non-institutional (private) residence as the place of occurrence of the external cause; E78.5 Hyperlipidemia, unspecified; J44.9 Chronic obstructive pulmonary disease, unspecified; I13.2 Hypertensive heart and chronic kidney disease with heart failure and with stage 5 chronic kidney disease, or end stage renal disease; N18.6 End stage renal disease; I50.9 Heart failure, unspecified; Z99.2 Dependence on renal dialysis
CPT/HCPCS: 36415; 71045-TC-FY; 71101-TC-FY; 80053; 84484; 85025; 93005; 93010; 99283-25

== ENCOUNTER 2018-11-07 19:54 | Inpatient (IN) | payer OTHER ==
--- NOTE | 2018-11-07 20:39 | PDOC ---
Rapid Medical Evaluation Medical Evaluation: Allergies Allergy/AdvReac Type Severity Reaction Status Date / Time No Known Allergies Allergy Verified 09/25/18 00:12 11/07/18 20:37 I have performed a brief in-person evaluation of this patient. The patient presents with a chief complaint of:2 weeks swelling and pain in legs , history of dialysis. MWF Pertinent physical exam findings:bilateral edema to LE, no SOB I have ordered the following:nothing The patient will proceed to the ED for further evaluation. Discharge Disposition - Referrals Referrals: Negro Hidalgo MD [Primary Care Provider] - - Patient Instructions - Post Discharge Activity
--- NOTE | 2018-11-07 21:26 | PDOC ---
Attending Attestation - HPI HPI: 11/07/18 21:26 The patient is a 78 year old male, with a significant PMH of ESRD on HD MWF, CAD s/p CABG, COPD, HTN, HLD, who presents to the emergency department with 2 weeks of bilateral leg swelling and pain. The patient also states he has intermittent shortness of breath when walking but states this has been ongoing and is unchanged. The patient denies chest pain, palpitations, diaphoresis, headache and dizziness. Denies fever, chills, nausea, vomit, diarrhea and constipation. Denies dysuria, frequency, urgency and hematuria. Allergies: NKDA Documentation prepared by Michael Barahona, acting as medical legal investigator for Tamanna Spencer MD. <Michael Barahona - Last Filed: 11/07/18 21:26> - Resident Resident Name: Buddy Morejon - ED Attending Attestation I have performed the following: I have examined & evaluated the patient, The case was reviewed & discussed with the resident, I agree w/resident's findings & plan, Exceptions are as noted - Physicial Exam PE: GENERAL: Awake, alert, and fully oriented, in no acute distress HEAD: No signs of trauma EYES: PERRLA, EOMI, sclera anicteric, conjunctiva clear ENT: Auricles normal inspection, hearing grossly normal, nares patent, oropharynx clear without exudates. Moist mucosa NECK: Normal ROM, supple, no lymphadenopathy, JVD, or masses LUNGS: Breath sounds equal, clear to auscultation bilaterally. No wheezes, and no crackles HEART: Regular rate and rhythm, normal S1 and S2, no murmurs, rubs or gallops ABDOMEN: Soft, nontender, normoactive bowel sounds. No guarding, no rebound. No masses EXTREMITIES: Normal range of motion. 3+ pitting edema to mid-fischer B/L. + Exquisite tenderness to feet B/L, with erythema, cool to touch. No clubbing or cyanosis. No calf tenderness. NEUROLOGICAL: Cranial nerves II through XII grossly intact. Normal speech, normal gait SKIN: Warm, Dry, normal turgor, no rashes or lesions noted. 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 He has prior vascular issues, active smoker. If he needs CTA, Dr. Mei is on board. I will obtain dopplers for now. <Tamanna Spencer - Last Filed: 11/07/18 21:45>
--- NOTE | 2018-11-07 21:30 | PDOC ---
History of Present Illness - General Chief Complaint: Edema Stated Complaint: BOTH FOOT PAIN Time Seen by Provider: 11/07/18 21:00 History Source: Patient Exam Limitations: No Limitations - History of Present Illness Initial Comments: 11/07/18 21:23 Patient is 78M with history of ESRD on MWF dialysis, CAD s/p bypass, HTN, HLD, CHF here today complaining of bilateral leg swelling for the past two weeks. Patient denies fevers, chills, nausea, vomiting. Denies chest pain. Patient states that he has some shortness of breath, but that is at baseline. 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 No history of blood clots reported. No headache, no abdominal pain. Denies trauma. Past History - Past Medical History Allergies/Adverse Reactions: Allergies Allergy/AdvReac Type Severity Reaction Status Date / Time No Known Allergies Allergy Verified 09/25/18 00:12 Home Medications: Ambulatory Orders Calcium (Oyster Shell) [Os-Reuben 500MG -] 500 mg PO BID #60 tablet 03/22/16 Albuterol Sulfate Inhaler - [Ventolin HFA Inhaler -] 2 puff IH Q4H PRN #2 inhaler 06/06/18 Aspirin Coated [Ecotrin -] 81 mg PO DAILY #30 tablet.ec 06/06/18 Atorvastatin Ca [Lipitor] 20 mg PO HS #30 tablet 06/06/18 Lisinopril [Prinivil -] 40 mg PO DAILY #30 tablet 06/06/18 Metoprolol Tartrate [Lopressor -] 12.5 mg PO BID #60 tablet 06/06/18 Prednisone See Taper PO DAILY #14 tablet 06/06/18 Salmeterol/Fluticasone [Advair 100Mcg/50Mcg -] 1 puff IH BID #2 inhaler Tiotropium [place] [Spiriva] 1 inh PO DAILY #30 inhaler 06/06/18 Docusate Sodium 100 mg PO DAILY #7 capsule 09/25/18 Oxycodone HCl/Acetaminophen [Percocet 5-325 mg Tablet] 1 tab PO Q6H #20 tablet MDD 4 09/25/18 Anemia: No Asthma: No Cancer: No Cardiac Disorders: Yes (cad) CVA: No COPD: No CHF: No Dementia: No Diabetes: No Dialysis: Yes (lt arm fistula, m-w-f h.d) GI Disorders: No Disorders: No HTN: Yes Hypercholesterolemia: Yes Liver Disease: No Seizures: No Thyroid Disease: Yes (Dialysi:Mon-Sat-Sat) - Surgical History Abdominal Surgery: No Appendectomy: No Cardiac Surgery: Yes (quad bipass) Lung Surgery: No Neurologic Surgery: No Orthopedic Surgery: No - Immunization History Immunization Up to Date: No - Suicide/Smoking/Psychosocial Hx Smoking History: Never smoked Have you smoked in the past 12 months: No Number of Cigarettes Smoked Daily: 5 'Breaking Loose' booklet given: 01/27/14 Hx Alcohol Use: No Drug/Substance Use Hx: No Substance Use Type: None Review of Systems - Review of Systems Comments:: 11/07/18 21:27 GENERAL/CONSTITUTIONAL: No fever or chills. No weakness. HEAD, EYES, EARS, NOSE AND THROAT: No change in vision. No sore throat. CARDIOVASCULAR: No chest pain or shortness of breath RESPIRATORY: No cough, wheezing, or hemoptysis. GASTROINTESTINAL: No nausea, vomiting, diarrhea or constipation. GENITOURINARY: No dysuria, frequency, or change in urination. MUSCULOSKELETAL: No joint or muscle swelling or pain. No neck or back pain. SKIN: No rash NEUROLOGIC: No headache, vertigo, loss of consciousness, or change in strength/ sensation. ENDOCRINE: No increased thirst. No abnormal weight change HEMATOLOGIC/LYMPHATIC: No anemia, +bruises of unknown etiology. No history of blood clots. ALLERGIC/IMMUNOLOGIC: No hives or skin allergy. *Physical Exam - Vital Signs Last Vital Signs Temp Pulse Resp BP Pulse Ox 98.1 F 65 19 168/94 99 11/07/18 20:38 11/07/18 20:38 11/07/18 20:38 11/07/18 20:38 11/07/18 20:38 - Physical Exam Comments: 11/07/18 21:30 GENERAL: Awake, alert, and fully oriented, in no acute distress HEAD: No signs of trauma, normocephalic, atraumatic EYES: PERRLA, EOMI, sclera anicteric, conjunctiva clear ENT: Auricles normal inspection, hearing grossly normal, nares patent, oropharynx clear without exudates. Moist mucosa NECK: Normal ROM, supple, no lymphadenopathy, JVD, or masses LUNGS: No distress, speaks full sentences, clear to auscultation bilaterally HEART: Regular rate and rhythm, normal S1 and S2, no murmurs, rubs or gallops, peripheral pulses normal and equal bilaterally. ABDOMEN: Soft, nontender, normoactive bowel sounds. No guarding, no rebound. No masses L ARM: AV fistula with thrill LEGS: Bilateral equal pitting edema from shins to feet. Neurovascularly intact, dp pulses intact, pink warm extremities with good cap refill NEUROLOGICAL: Cranial nerves II through XII grossly intact. Normal speech, no focal sensorimotor deficits SKIN: Warm, Dry, normal turgor, no rashes or lesions noted. Moderate Sedation - Procedure Monitoring Vital Signs: Procedure Monitoring Vital Signs Temperature 98.1 F 11/07/18 20:38 Pulse Rate 65 11/07/18 20:38 Respiratory Rate 19 11/07/18 20:38 Blood Pressure 168/94 11/07/18 20:38 O2 Sat by Pulse Oximetry (%) 99 11/07/18 20:38 ED Treatment Course - LABORATORY CBC & Chemistry Diagram: 11/07/18 21:59 11/07/18 22:35 - RADIOLOGY Radiology Studies Ordered: Category Date Time Status CHEST X-RAY PORTABLE* [RAD] Stat Radiology 11/07/18 21:15 Ordered Medical Decision Making - Medical Decision Making 11/07/18 21:33 Patient is 78M with history of CAD s/p bypass, htn, hld, esrd on mwf dialysis, chf here today with bilateral leg swelling. Vitals normal and stable on exam. DDx includes, but is not limited to: fluid overload 2/2 esrd or liver issue, chf , arterial or venous insufficiency. Will dnae pwith cbc, cmp, ekg, trop, cxr, dopplers. Given percocet for pain. 11/07/18 23:38 Laboratory Tests 11/07/18 11/07/18 21:59 22:35 WBC 6.0 Hgb 10.5 L Plt Count 109 L D Potassium 4.4 BUN 36 H Creatinine 5.7 H Troponin I 0.12 H CBC shows anemia. K normal, CMP shows Cr consistent with CKD. Troponin detectable to 0.12. Unsure of importance given renal failure. 11/07/18 23:57 CXR shows mild chf. No acute infiltrate. 11/08/18 00:[address] De Leon. *DC/Admit/Observation/Transfer Diagnosis at time of Disposition: Leg edema - Discharge Dispostion Condition at time of disposition: Stable - Referrals Referrals: Negro Hidalgo MD [Primary Care Provider] - - Patient Instructions - Post Discharge Activity
[2018-11-07 22:08] LABS: BASO % 1.8 % (0-2.0); EOS % 2.9 % (0-4.5); HEMATOCRIT 29.5 % (35.4-49); HEMOGLOBIN 10.5 GM/dL (11.7-16.9); LYMPH % 20.2 % (8-40); MCH 33.9 pg (25.7-33.7); MCHC 35.5 g/dl (32.0-35.9); MEAN CELL VOLUME 95.4 fl (80-96); MEAN PLT VOLUME 9.6 fl (7.5-11.1); MONO % 11.2 % (3.8-10.2); NEUT % 63.9 % (42.8-82.8); PLATELET COUNT 109 K/MM3 (134-434); RBC 3.09 M/mm3 (4.00-5.60); RDW 16.6 % (11.9-15.9)
[2018-11-07 22:42] LABS: INR 0.97 (0.83-1.09); PROTHROMBIN TIME (PATIENT) 11.5 SEC (9.7-13.0)
[2018-11-07 23:29] LABS: ALBUMIN 3.3 g/dl (3.4-5.0); BILIRUBIN,TOTAL 0.5 mg/dL (0.2-1); BLOOD UREA NITROGEN 36 mg/dL (7-18); CALCIUM 8.1 mg/dL (8.5-10.1); CHLORIDE 100 mmol/L (98-107); CREATININE 5.7 mg/dL (0.55-1.3); GLUCOSE,RANDOM 88 mg/dL (74-106); SGPT/ALT 31 U/L (13-61); SODIUM 137 mmol/L (136-145); TOT PROT 6.6 g/dl (6.4-8.2)
[2018-11-07 23:30] LABS: ALK PHOS 281 U/L (45-117); ANION GAP 8 MMOL/L (8-16); CO2 29 mmol/L (21-32); POTASSIUM 4.4 mmol/L (3.5-5.1); SGOT/AST 40 U/L (15-37)
[2018-11-07 23:44] LABS: PLATELET ESTIMATE DECREASED
--- NOTE | 2018-11-08 01:44 | PDOC ---
*Physical Exam - Vital Signs Last Vital Signs Temp Pulse Resp BP Pulse Ox 98.0 F 65 20 168/94 98 11/07/18 21:10 11/07/18 21:10 11/07/18 21:10 11/07/18 21:10 11/07/18 21:10 - Physical Exam Comments: 11/08/18 01:39 78 yo M with ESRD, CAD, CHF, and peripheral vascular disease presenting with bilateral leg swelling and pain. Patient was signed out to me by Dr. Morejon. At the time of sign out, ultrasound studies of the LE for venous and arterial were pending. Dr. Mei per Dr. Morejon is aware of the patient and states he is ok with the CTA of the LE and will be dialyzed later today per Dr. Mei. ED Treatment Course - LABORATORY CBC & Chemistry Diagram: 11/07/18 21:59 11/07/18 22:35 - ADDITIONAL ORDERS Additional order review: Laboratory Results 11/07/18 11/07/18 11/07/18 22:35 21:59 21:59 PT with INR 11.50 INR 0.97 Sodium 137 Cancelled Potassium 4.4 Cancelled Chloride 100 Cancelled Carbon Dioxide 29 Cancelled Anion Gap 8 Cancelled BUN 36 H Cancelled Creatinine 5.7 H Cancelled Creat Clearance w eGFR 9.75 Cancelled Random Glucose 88 Cancelled Calcium 8.1 L Cancelled Magnesium Cancelled Total Bilirubin 0.5 Cancelled AST 40 H Cancelled ALT 31 Cancelled Alkaline Phosphatase 281 H Cancelled Creatine Kinase 97 Cancelled Troponin I 0.12 H Cancelled Total Protein 6.6 Cancelled Albumin 3.3 L Cancelled 11/07/18 21:59 RBC 3.09 L MCV 95.4 MCHC 35.5 RDW 16.6 H MPV 9.6 Neutrophils % 63.9 Lymphocytes % 20.2 D Monocytes % 11.2 H Eosinophils % 2.9 Basophils % 1.8 - Medications Given in the ED: ED Medications Discontinued Medications Generic Name Dose Route Start Last Admin Trade Name Freq PRN Reason Stop Dose Admin Oxycodone/Acetaminophen 1 combo 11/07/18 21:33 11/07/18 22:45 Percocet 5/325 - PO 11/07/18 21:34 1 combo ONCE ONE Administration Medical Decision Making - Medical Decision Making 11/08/18 01:42 No DVTs were noted on the venous ultrasound duplex. 11/08/18 02:03 Duplex arterial: "Right side: common femoral, superifical femoral, popliteal, and posterior tibial arteries imaged. these demonstrated normal triphasic flow. there is atherosclerotic plaque but no occlusive disease. dorsalis pedis not imaged" "left side: common femoral artery, left superficial femoral popliteal and posterior tibial arteries. normal triphasic flow noted. there is atherosclerotic plaque but no occlusive disease. left dorsalis pedis not imaged ". Patient was signed out to Dr. Miles *DC/Admit/Observation/Transfer Diagnosis at time of Disposition: Leg edema - Discharge Dispostion Condition at time of disposition: Stable - Referrals - Patient Instructions - Post Discharge Activity
[2018-11-08] MEDS ORDERED: morphine CARPU-JECT 2 MG/1 ML DISP.SYRIN IVPUSH ONE (02:01)
[2018-11-08] MEDS ORDERED: MORPHINE SULFATE 2 MG/ML VIAL ONE ×2 (03:06→11:42)
--- NOTE | 2018-11-08 03:38 | PDOC ---
*Physical Exam - Vital Signs Last Vital Signs Temp Pulse Resp BP Pulse Ox 98.0 F 65 20 168/94 98 11/07/18 21:10 11/07/18 21:10 11/07/18 21:10 11/07/18 21:10 11/07/18 21:10 ED Treatment Course - LABORATORY CBC & Chemistry Diagram: 11/07/18 21:59 11/07/18 22:35 - ADDITIONAL ORDERS Additional order review: Laboratory Results 11/07/18 11/07/18 11/07/18 22:35 21:59 21:59 PT with INR 11.50 INR 0.97 Sodium 137 Cancelled Potassium 4.4 Cancelled Chloride 100 Cancelled Carbon Dioxide 29 Cancelled Anion Gap 8 Cancelled BUN 36 H Cancelled Creatinine 5.7 H Cancelled Creat Clearance w eGFR 9.75 Cancelled Random Glucose 88 Cancelled Calcium 8.1 L Cancelled Magnesium Cancelled Total Bilirubin 0.5 Cancelled AST 40 H Cancelled ALT 31 Cancelled Alkaline Phosphatase 281 H Cancelled Creatine Kinase 97 Cancelled Troponin I 0.12 H Cancelled Total Protein 6.6 Cancelled Albumin 3.3 L Cancelled 11/07/18 21:59 RBC 3.09 L MCV 95.4 MCHC 35.5 RDW 16.6 H MPV 9.6 Neutrophils % 63.9 Lymphocytes % 20.2 D Monocytes % 11.2 H Eosinophils % 2.9 Basophils % 1.8 - Medications Given in the ED: ED Medications Discontinued Medications Generic Name Dose Route Start Last Admin Trade Name Freq PRN Reason Stop Dose Admin Morphine Sulfate 2 mg 11/08/18 02:01 11/08/18 03:16 Morphine Injection - IVPUSH 11/08/18 02:02 2 mg ONCE ONE Administration Oxycodone/Acetaminophen 1 combo 11/07/18 21:33 11/07/18 22:45 Percocet 5/325 - PO 11/07/18 21:34 1 combo ONCE ONE Administration Medical Decision Making - Medical Decision Making 11/08/18 03:36 Sign out given by Dr. De Leon Briefly, patient is a 78 year old male with a PMHx of ESRD on Dialysis MWF, CAD s/p bypass, HTN, HLD, diastolic CHF who presented for bilateral leg swelling and shortness of breath for the past two weeks, despite dialysis. Venous duplex negative for DVT's and arterial duplex was unable to image dorsalis pedis bilaterally. Therefore, CTA ordered and now pending 11/08/18 04:50 -CTA Impression: 1. Mild focal stenosis near the origin of the right popliteal artery. 2. Three-vessel runoff on the right. 3. Focal moderate to severe stenosis within the distal aspect of the left superficial femoral artery. 4. Three-vessel runoff on the left. 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 -Will microblog symphony for admission 11/08/18 07:00 -Waiting for symphony -Will sign out to AM team *DC/Admit/Observation/Transfer Diagnosis at time of Disposition: Leg edema - Discharge Dispostion Condition at time of disposition: Stable - Referrals Referrals: Negro Hidalgo MD [Primary Care Provider] - - Patient Instructions - Post Discharge Activity
--- NOTE | 2018-11-08 03:58 | PDOC ---
*Physical Exam - Vital Signs Last Vital Signs Temp Pulse Resp BP Pulse Ox 98.0 F 65 20 168/94 98 11/07/18 21:10 11/07/18 21:10 11/07/18 21:10 11/07/18 21:10 11/07/18 21:10 ED Treatment Course - LABORATORY CBC & Chemistry Diagram: 11/09/18 06:30 11/09/18 06:30 - ADDITIONAL ORDERS Additional order review: Laboratory Results 11/07/18 11/07/18 11/07/18 22:35 21:59 21:59 PT with INR 11.50 INR 0.97 Sodium 137 Cancelled Potassium 4.4 Cancelled Chloride 100 Cancelled Carbon Dioxide 29 Cancelled Anion Gap 8 Cancelled BUN 36 H Cancelled Creatinine 5.7 H Cancelled Creat Clearance w eGFR 9.75 Cancelled Random Glucose 88 Cancelled Calcium 8.1 L Cancelled Magnesium Cancelled Total Bilirubin 0.5 Cancelled AST 40 H Cancelled ALT 31 Cancelled Alkaline Phosphatase 281 H Cancelled Creatine Kinase 97 Cancelled Troponin I 0.12 H Cancelled Total Protein 6.6 Cancelled Albumin 3.3 L Cancelled 11/07/18 21:59 RBC 3.09 L MCV 95.4 MCHC 35.5 RDW 16.6 H MPV 9.6 Neutrophils % 63.9 Lymphocytes % 20.2 D Monocytes % 11.2 H Eosinophils % 2.9 Basophils % 1.8 - Medications Given in the ED: ED Medications Discontinued Medications Generic Name Dose Route Start Last Admin Trade Name Noelle PRN Reason Stop Dose Admin Morphine Sulfate 2 mg 11/08/18 02:01 11/08/18 03:16 Morphine Injection - IVPUSH 11/08/18 02:02 2 mg ONCE ONE Administration Oxycodone/Acetaminophen 1 combo 11/07/18 21:33 11/07/18 22:45 Percocet 5/325 - PO 11/07/18 21:34 1 combo ONCE ONE Administration Medical Decision Making - Medical Decision Making 11/08/18 03:31 Patient Name: MARIA TERESA BYRD THIS IS A PRELIMINARY REPORT FROM [facility] DATE OF SERVICE: 2018-11-07 22:51:17 IMAGES: [id number] EXAM: DUPLEX ART. LOWER COMPL US HISTORY: Bilateral leg swelling COMPARISON: None. FINDINGS: Right side: The following vessels were imaged: Common femoral, superficial femoral, popliteal, and posterior tibial arteries. These vessels demonstrated normal triphasic flow. There is atherosclerotic plaque but no occlusive disease. Dorsalis pedis not imaged. Left side: The following vessels were imaged: Left common femoral artery, left superficial femoral popliteal and posterior tibial arteries. Normal triphasic flow was noted. There is atherosclerotic plaque but no occlusive disease. Left dorsalis pedis not imaged. THIS DOCUMENT HAS BEEN ELECTRONICALLY SIGNED Pt will be admitted for dialysis to dialyze off the IV contrast for CT. 11/08/18 05:22 Patient Name: MARIA TERESA BYRD THIS IS A PRELIMINARY REPORT FROM [facility] DATE OF SERVICE: 2018-11-08 02:27:46 IMAGES: [id number] EXAM: CT angiogram of the pelvis and bilateral lower extremity arterial runoff. Clinical indication: Bilateral cold feet with bilateral leg pain and swelling. There are no prior studies available for comparison. Technique: Axial IV contrast-enhanced CT images of the pelvis and bilateral lower extremity arterial runoff were performed. In addition, axial projection maximum intensity pixel multiplanar imaging of the pelvis and bilateral lower extremity arterial runoff were performed for increased anatomic detail and diagnostic interpretation. Findings: There is atherosclerotic disease involving the distal abdominal aorta, but without aneurysm. CONFIDENTIALITY NOTICE: This information is intended only for the use of the recipient(s) named above. If you are not the intended recipient, or a person responsible for delivering it to the intended recipient, you are hereby notified that any disclosure, copying, distribution or use of any of the information contained in or attached to this transmission is STRICTLY PROHIBITED. If you have received this transmission in error, please immediately notify [address] [place] [address] Phone: [phone]) Fax: Email: [email or web address] Patient Information: : 1940 Order Type: Preliminary Name: ROCHELLE MOREL Sex: M Study Description: CT CTA LOWER EXTREMITY Modality: CT Location: [facility] Referring Physician: SMILEY VASQUEZ The right common iliac, internal, external iliac, common femoral, deep profunda , and superficial femoral arteries are diseased, but widely patent. There is a mild focal stenosis near the origin of the right popliteal artery. The remainder of the right popliteal artery is patent. There is three-vessel runoff on the right. The left common iliac, internal iliac, external iliac, common femoral, and deep profunda arteries are widely patent. There is a focal moderate to severe stenosis within the distal left superficial femoral artery. The left popliteal artery is patent. There is three-vessel runoff on the left. There is no free intra-abdominal gas or fluid. There are no enlarged pelvic lymph nodes, by size criteria. The urinary bladder is unremarkable. Visualized bowel is unremarkable. The visualized bony structures are within normal limits for the patient's age. Impression: 1. Mild focal stenosis near the origin of the right popliteal artery. 2. Three-vessel runoff on the right. 3. Focal moderate to severe stenosis within the distal aspect of the left superficial femoral artery. 4. Three-vessel runoff on the left. One or more of the following dose reduction techniques were used: automated exposure control, adjustment of the mA and/or kV according to patient size, use of iterative reconstructive technique. THIS DOCUMENT HAS BEEN ELECTRONICALLY SIGNED *DC/Admit/Observation/Transfer Diagnosis at time of Disposition: Leg edema - Discharge Dispostion Condition at time of disposition: Stable - Referrals - Patient Instructions - Post Discharge Activity
[2018-11-08] MEDS ORDERED: MORPHINE SULFATE 2 MG/ML VIAL IVPUSH ONE (10:16)
[2018-11-08] MEDS ORDERED: ALBUTEROL SO4 0.083% IH SOL 2.5 MG/3 ML VIAL.NEB. NEB ONE (10:19)
--- NOTE | 2018-11-08 10:23 | HP ---
CHIEF COMPLAINT: leg swelling PCP: Dr. Patterson HISTORY OF PRESENT ILLNESS: This is a 78 year old male with a history of ESRD on HD (MWF), CAD (4stents), decompensated CHF, who presents with a two week history of leg swelling and shortness of breath. Last dialysis was yesterday. As per patient he gets 3- 5kilos off per session and has recently been getting extra HD on Sundays due to overload. He was recently hospitalized at [facility] for pneumonia, "fluid around heart" and had 4 cardiac stents placed. Patient is poor historian and does not recall all medications, is not compliant with all prescribed medications. He denies fever, chills, n, v,d, c. Endorses a sharp, intermittent 10/10, RUQ abdominal pain for the past week. Moving around makes it worse, lying down alleviated some of the pain. In the ER, CTA was done to verify LE flow due to not detectable pedal pulses. CTA: mild stenosis of the right popliteal artery with three vessel runoff. Left superficial femoral artery moderate/severe stenosis with 3 vessel runoff. Recent Travel: none PAST MEDICAL HISTORY: HTN, HLD, Diastolic CHF, PAD, ESRD PAST SURGICAL HISTORY: av fistula on LUE, Social History: Smoking:smoked for 50+ years; quit two years ago Alcohol:drank alcohol in the past frequently; quit Drugs: none Family History: Allergies No Known Allergies Allergy (Verified 09/25/18 00:12) HOME MEDICATIONS: Home Medications Medication Instructions Recorded Calcium (Oyster Shell) [Os-Reuben 500 mg PO BID #60 tablet 03/22/16 500MG -] Albuterol Sulfate Inhaler - 2 puff IH Q4H PRN #2 inhaler 06/06/18 [Ventolin HFA Inhaler -] Aspirin Coated [Ecotrin -] 81 mg PO DAILY #30 tablet.ec 06/06/18 Atorvastatin Ca [Lipitor] 20 mg PO HS #30 tablet 06/06/18 Lisinopril [Prinivil -] 40 mg PO DAILY #30 tablet 06/06/18 Metoprolol Tartrate [Lopressor -] 12.5 mg PO BID #60 tablet 06/06/18 Prednisone See Taper PO DAILY #14 tablet 06/06/18 Salmeterol/Fluticasone [Advair 1 puff IH BID #2 inhaler 06/06/18 100Mcg/50Mcg -] Tiotropium [place] [Spiriva] 1 inh PO DAILY #30 inhaler 06/06/18 Docusate Sodium 100 mg PO DAILY #7 capsule 09/25/18 Oxycodone HCl/Acetaminophen 1 tab PO Q6H #20 tablet MDD 4 09/25/18 [Percocet 5-325 mg Tablet] REVIEW OF SYSTEMS CONSTITUTIONAL: Absent: fever, chills, diaphoresis, generalized weakness, malaise, loss of appetite, weight change HEENT: Absent: rhinorrhea, nasal congestion, throat pain, throat swelling, difficulty swallowing, mouth swelling, ear pain, eye pain, visual changes CARDIOVASCULAR: Positive: peripheral edema Absent: chest pain, syncope, palpitations, irregular heart rate, lightheadedness , RESPIRATORY: Positive: shortness of breath,dyspnea with exertion,wheezing, Absent: cough, orthopnea, stridor, hemoptysis GASTROINTESTINAL: Positive: abdominal pain, Absent: abdominal distension, nausea, vomiting, diarrhea, constipation, melena , hematochezia GENITOURINARY: Absent: dysuria, frequency, urgency, hesitancy, hematuria, flank pain, genital pain MUSCULOSKELETAL: Absent: myalgia, arthralgia, joint swelling, back pain, neck pain SKIN: Absent: rash, itching, pallor HEMATOLOGIC/IMMUNOLOGIC: Absent: easy bleeding, easy bruising, lymphadenopathy, frequent infections ENDOCRINE: Absent: unexplained weight gain, unexplained weight loss, heat intolerance, cold intolerance NEUROLOGIC: Absent: headache, focal weakness or paresthesias, dizziness, unsteady gait, seizure, mental status changes, bladder or bowel incontinence PSYCHIATRIC: Absent: anxiety, depression, suicidal or homicidal ideation, hallucinations. PHYSICAL EXAMINATION Vital Signs - 24 hr 11/07/18 11/07/18 20:38 21:10 Temperature 98.1 F 98.0 F Pulse Rate 65 Pulse Rate [ 65 Left Radial] Respiratory 19 20 Rate Blood Pressure 168/94 Blood Pressure 168/94 [Left Arm] O2 Sat by Pulse 99 98 Oximetry (%) GENERAL: Awake, alert, and fully oriented HEAD: Normal with no signs of trauma. EYES: Pupils equal, round and reactive to light, extraocular movements intact, sclera anicteric, conjunctiva clear. No lid lag. NECK: Normal range of motion, supple without lymphadenopathy, JVD, or masses. LUNGS: wheeze+; crackles right lung base HEART: Regular rate and rhythm, normal S1 and S2 without murmur, rub or gallop. ABDOMEN: very tender to light tough; RUQ; mitchell + MUSCULOSKELETAL: Normal range of motion at all joints. No bony deformities or tenderness. No CVA tenderness. UPPER EXTREMITIES: 2+ pulses, warm, well-perfused. No cyanosis. No clubbing. No peripheral edema. LOWER EXTREMITIES: tibialis pulses not palpable; 1+pedal pulsed b/l ; 2+ bilateral LE /pedal edema, warm, tender, RLE fischer with healed scab small area of surrounding erythema; no open laceration /ulcers/wounds NEUROLOGICAL: Cranial nerves II-XII intact. Normal speech. strength 5/5 throughout muscle groups; sensation intact; PSYCHIATRIC: Cooperative. Good eye contact. Appropriate mood and affect. SKIN: Warm, dry, normal turgor, no rashes or lesions noted, normal capillary refill. Laboratory Results - last 24 hr 11/07/18 11/07/18 11/07/18 21:59 21:59 21:59 WBC 6.0 RBC 3.09 L Hgb 10.5 L Hct 29.5 L MCV 95.4 MCH 33.9 H MCHC 35.5 RDW 16.6 H Plt Count 109 L D MPV 9.6 Absolute Neuts (auto) 3.8 Neutrophils % 63.9 Neutrophils % (Manual) 59.0 Lymphocytes % 20.2 D Lymphocytes % (Manual) 25.0 Monocytes % 11.2 H Monocytes % (Manual) 11 H Eosinophils % 2.9 Eosinophils % (Manual) 3.0 Basophils % 1.8 Nucleated RBC % 0 Platelet Estimate Decreased PT with INR 11.50 INR 0.97 Sodium Cancelled Potassium Cancelled Chloride Cancelled Carbon Dioxide Cancelled Anion Gap Cancelled BUN Cancelled Creatinine Cancelled Creat Clearance w eGFR Cancelled Random Glucose Cancelled Calcium Cancelled Magnesium Cancelled Total Bilirubin Cancelled AST Cancelled ALT Cancelled Alkaline Phosphatase Cancelled Creatine Kinase Cancelled Troponin I Cancelled Total Protein Cancelled Albumin Cancelled 11/07/18 22:35 WBC RBC Hgb Hct MCV MCH MCHC RDW Plt Count MPV Absolute Neuts (auto) Neutrophils % Neutrophils % (Manual) Lymphocytes % Lymphocytes % (Manual) Monocytes % Monocytes % (Manual) Eosinophils % Eosinophils % (Manual) Basophils % Nucleated RBC % Platelet Estimate PT with INR INR Sodium 137 Potassium 4.4 Chloride 100 Carbon Dioxide 29 Anion Gap 8 BUN 36 H Creatinine 5.7 H Creat Clearance w eGFR 9.75 Random Glucose 88 Calcium 8.1 L Magnesium Total Bilirubin 0.5 AST 40 H ALT 31 Alkaline Phosphatase 281 H Creatine Kinase 97 Troponin I 0.12 H Total Protein 6.6 Albumin 3.3 L ASSESSMENT/PLAN: This is 78 year old male with a history of ESRD, dCHF, CAD, HTN, HLD who presents with two weeks of bilateral leg swelling and shortness of breath. R/o acute exacerbation of chf vs volume overload from ESRD. #bilateral leg swelling/sob: secondary to possible chf exacerbation vs overload from ESRD -dialysis tomorrow -monitor bmp; renal function -monitor urine output -strict I/Os, daily weight -stat IV lasix 80mg x1 -echo -fall precautions -cardio consult -retrieve [facility] records #elevated troponin; -chronic elevated, decreased from previous; although carolyn f/u with repeat due to flattening t waves on ecg #RUQ abdominal pain: -elevated alk phos; can be secondary to ESRD -will orger GGT ; may have liver component -abdominal US #PAD -CTA appreciated; -of note bilateral pedal pulses present/warm extremities -consult vascular for further recommendations and f/u #CAD -cont asa and plavix -BB #HTN -cont hydralizine 25mg po tid #HLD -cont lipitor 80mg qd #COPD -cont inhaled bronchodilators symbicort 1puff bid -albuterol prn GI ppl: on protonix VTE ppl: heparn sq Disposition: inpatient med surg; Visit type - Emergency Visit Emergency Visit: Yes ED Registration Date: 11/08/18 Care time: The patient presented to the Emergency Department on the above date and was hospitalized for further evaluation of their emergent condition. - New Patient This patient is new to me today: Yes Date on this admission: 11/08/18 - Critical Care Critical Care patient: No
[2018-11-08] MEDS ORDERED: ALBUTEROL SO4 8 GM HFA INHALER IH PRN (11:02)
[2018-11-08] MEDS: ALBUTEROL SO4 0.083% IH SOL 2.5 MG/3 ML VIAL.NEB. NEB PRN ×3 (11:33→19:59)
[2018-11-08] MEDS ORDERED: ALBUTEROL SO4 2.5/IPRATROPIUM 0.5 INH SOL 3 ML VIAL.NEB. NEB ONE (11:37)
[2018-11-08] MEDS: CLOPIDOGREL BISULFATE 75 MG TABLET (FP) PO SCH (11:54)
[2018-11-08] MEDS: PANTOPRAZOLE 40 MG TABLET (FP) PO SCH (11:54)
[2018-11-08] MEDS: TAMSULOSIN HCL 0.4 MG CAP PO SCH (11:54)
[2018-11-08] MEDS: ASPIRIN COATED 81 MG TABLET.EC PO SCH (11:54)
[2018-11-08 12:10] LABS: N-TERMINAL BNP 75627.4 pg/ml (5-450)
[2018-11-08] MEDS ORDERED: FUROSEMIDE 40 MG/4 ML INJECTABLE VIAL IVPB ONE (12:17)
[2018-11-08] MEDS ORDERED: FUROSEMIDE 40 MG/4 ML INJECTABLE VIAL ONE (12:44)
[2018-11-08] MEDS: SEVELAMER CARBONATE 800 MG TAB (FP) PO SCH ×2 (12:53→17:12)
--- NOTE | 2018-11-08 13:26 | EKG ---
Test Reason : Blood Pressure : / mmHG Vent. Rate : 056 BPM Atrial Rate : 056 BPM P-R Int : 172 ms QRS Dur : 106 ms QT Int : 490 ms P-R-T Axes : 040 -20 -10 degrees QTc Int : 472 ms SINUS BRADYCARDIA CANNOT RULE OUT ANTERIOR INFARCT , AGE UNDETERMINED ABNORMAL ECG WHEN COMPARED WITH ECG OF 25-SEP-2018 00:19, INVERTED T WAVES HAVE REPLACED NONSPECIFIC T WAVE ABNORMALITY IN INFERIOR LEADS Confirmed by AL LOJA, SANTA ([id number]) on 11/08/2018 1:26:23 PM Referred By: Confirmed By:SANTA MELENDEZ MD
--- NOTE | 2018-11-08 13:29 | PN ---
Teaching Attending Note Name of Resident: Ijeoma Mendez ATTENDING PHYSICIAN STATEMENT I saw and evaluated the patient. I reviewed the resident's note and discussed the case with the resident. I agree with the resident's findings and plan as documented. SUBJECTIVE: CC: LE edema and pain HPI: 78 y/o man h/o CAD, s/p CABG, stents, ESRD MWF, HTN, HLP, diastolic heart failure , and other medical problems who presented with SOB and LE edema x 1-2 weeks. He reports admission to [facility] 2 months ago, for heart failure and describes a procedure that sounds like heart cath with stents placement. He is not sure if he was placed on new blood thinners. he has been having worsening SOB and edema on LE with increased pains. no fever or chills. No drainage or trauma. he has been having increased bruising to his skin lately. he had HD yesterday. and reports bleeding form his L arm fistula last night. he has been given extra dialysis sessions recently for volume management he describes lower abd pain a week ago which has resolved. no diarrhea in ER: he had CTA of LE . OBJECTIVE: NAD, AAox3 . HEENT: MMM, NO JVD, EOMi, round equal pupils, reactive to light, no facial droop. Cv: RRR, no MRG Lungs: R base crackles, decreased breath sounds at L base Abd: soft ,TTP in LLQ and RLQ. nl BS . no TTP in RUQ. Ext : b/l LE edema up to knees, with erythema , and increased warmth . also increased tenderness and bruising. DP 2+ b/l. could not feel PT due to edema . Neuro : EOMI, round equal pupils, reactive to light , no facial droop. strenght 5/5 in upper and lower extremities proximally and distally ( ankle strength was not tested due to pain and edema). ASSESSMENT AND PLAN: 78 y/o man h/o CAD, s/p CABG, stents, ESRD MWF, HTN, HLP, diastolic heart failure , and other medical problems who presented with LE edema x 1-2 weeks. he was found to be volume overloaded 1- Volume overload: could be due to acute diastolic heart failure. not sure if his medications were changed recently after his dc from [facility] . poor historian and not sure of his salt intake. Not on any diuretics and he makes urine. - cont HD for volume management - give 80 of IV lasix now. - will d/w renal lasix on NH days as he makes urine - strict I&O. - last echo reviewed. will obtain echo form [facility] and repeat one here - card consult - cont BB 2- ESRD: regular H don MWF. will get one tomorrow - cont sevelamir 3- PVD: prelim read of CTA is severe L superficial femoral artery stenosis and R popliteal artery stenosis - cont ASa , plavix and statin - has palpable DP bilaterally - vascular 4- elevated trop : EKG with TWI in inferior leads, l axis and RBBB. compared to EKG form September TWI is better now. no cp . elevated trop cold be due to CKD. - monitor - cont Asa and plavix, BB and statin 5- Abd pain: check US as Alk phos and ALT are more elevated than before. also suspect secondary hyperparathyroidism is contributing to ALp elevation dispo : HLOC
[2018-11-08] MEDS: HEPARIN NA (PORCINE) 5,000 UNITS/ML 1ML VIAL SQ SCH ×2 (14:45→21:10)
[2018-11-08] MEDS: hydrALAZINE HCL 25 MG TABLET (FP) PO SCH ×2 (14:45→21:10)
--- NOTE | 2018-11-08 16:00 | CON.CARD ---
Consult Consult Specialty:: Cardiology Reason for Consultation:: Volume overloaded - History of Present Illness Chief Complaint: Presently comfortable History of Present Illness: The patient is a 78 year old male with a history of ESRD on HD, known CAD CABG , HTN, HLD, Smoker, and known CHF. He presents now with a 2 week history of leg swelling and JAIMES. Occasional epigastric pain, denies chest pain. Last Nuclear Stress Test 06/05/18 EF 52%, normal perfusion of myocardium. - Past Medical History Cardio/Vascular: Yes: CAD, HTN, Hyperlipdemia Gastrointestinal: Yes: GERD Renal/: Yes: Renal Failure, Hemodialysis (M/W/F) - Past Surgical History Past Surgical History: Yes: CABG (2 years ago ) - Alcohol/Substance Use Hx Alcohol Use: No - Smoking History Smoking history: Never smoked Have you smoked in the past 12 months: No Aproximately how many cigarettes per day: 5 - Social History ADL: Independent History of Recent Travel: No Home Medications - Allergies Allergies/Adverse Reactions: Allergies Allergy/AdvReac Type Severity Reaction Status Date / Time No Known Allergies Allergy Verified 09/25/18 00:12 - Home Medications Home Medications: Ambulatory Orders Calcium (Oyster Shell) [Os-Reuben 500MG -] 500 mg PO BID #60 tablet 03/22/16 Albuterol Sulfate Inhaler - [Ventolin HFA Inhaler -] 2 puff IH Q4H PRN #2 inhaler 06/06/18 Aspirin Coated [Ecotrin -] 81 mg PO DAILY #30 tablet.ec 06/06/18 Atorvastatin Ca [Lipitor] 80 mg PO HS 11/08/18 Clopidogrel Bisulfate [Plavix] 75 mg PO DAILY 11/08/18 Finasteride 5 mg PO DAILY 11/08/18 Fluticasone/Salmeterol [Advair Hfa 230-21 Mcg Inhaler] 1 inh PO BID 11/08/18 Hydralazine HCl 25 mg PO TID 11/08/18 Metoprolol Succinate [Toprol Xl] 50 mg PO DAILY 11/08/18 Pantoprazole Sodium [Protonix] 40 mg PO DAILY 11/08/18 Sevelamer Carbonate 800 mg PO DAILY 11/08/18 Tamsulosin HCl [Flomax] 0.4 mg PO DAILY 11/08/18 Vital Signs: Vital Signs Temperature 97.9 F 11/08/18 14:43 Pulse Rate 54 L 11/08/18 14:43 Respiratory Rate 18 11/08/18 14:43 Blood Pressure 176/76 H 11/08/18 14:43 O2 Sat by Pulse Oximetry (%) 98 11/08/18 14:43 Constitutional: Yes: No Distress Eyes: Yes: WNL HENT: Yes: WNL Neck: Yes: WNL Respiratory: Yes: Dullness (Basilar) Gastrointestinal: Yes: Normal Bowel Sounds, Soft Cardiovascular: Yes: Regular Rate and Rhythm Heart Sounds: Yes: S1, S2 (No MRHG) Edema: LLE: 1+, RLE: 1+ Neurological: Yes: Alert, Oriented (Grossly nonfocal) - Other Data Labs, Other Data: CBC, BMP 11/07/18 21:59 11/07/18 22:35 INR, PTT INR 0.97 (0.83-1.09) 11/07/18 21:59 Troponin, BNP 11/07/18 11/07/18 11/08/18 21:59 22:35 11:05 Troponin I Cancelled 0.12 H 0.12 H B-Natriuretic Peptide 78982.4 H Troponin, BNP 11/07/18 11/07/18 11/08/18 21:59 22:35 11:05 Troponin I Cancelled 0.12 H 0.12 H B-Natriuretic Peptide 74164.4 H Assessment/Plan 78 year old male with a history of ESRD on HD, known CAD CABG 03/2017, HTN, HLD, Smoker, and known CHF. He presents now with a 2 week history of leg swelling and JAIMES. Occasional epigastric pain, denies chest pain. Last Nuclear Stress Test 06/05/18 EF 52%, normal perfusion of myocardium. CHF Would obtain an echocardiogram Attempt negative balance with dialysis Continue Toprol XL 50 mg dialy Continue Hydralizine 25 mg PO TID CAD Continue ASA/Plavix/Statin Will follow with you
--- NOTE | 2018-11-08 17:11 | CONSULT ---
Consult Consult Specialty:: Nephrology Reason for Consultation:: ESRD - History of Present Illness Chief Complaint: lower ext edema and pain History of Present Illness: Pt is a 78 year old male with pmhx of ESRD, CAD, HTN. CHF and HLD who presents complaining of bilateral lower extremity edema. He also complains of bilateral leg pain. He denies shortness of breath. He was last dialyzed yesterday. He is not compliant with fluid restrictions. He denies chest pain, fevers or chills. - History Source History Provided By: Patient - Past Medical History Cardio/Vascular: Yes: CAD, HTN, Hyperlipdemia Gastrointestinal: Yes: GERD Renal/: Yes: Renal Failure, Hemodialysis (M/W/F) - Past Surgical History Past Surgical History: Yes: CABG (2 years ago ) - Alcohol/Substance Use Hx Alcohol Use: No - Smoking History Smoking history: Never smoked Have you smoked in the past 12 months: No Aproximately how many cigarettes per day: 5 - Social History ADL: Independent History of Recent Travel: No Home Medications - Allergies Allergies/Adverse Reactions: Allergies Allergy/AdvReac Type Severity Reaction Status Date / Time No Known Allergies Allergy Verified 09/25/18 00:12 - Home Medications Home Medications: Ambulatory Orders Calcium (Oyster Shell) [Os-Reuben 500MG -] 500 mg PO BID #60 tablet 03/22/16 Albuterol Sulfate Inhaler - [Ventolin HFA Inhaler -] 2 puff IH Q4H PRN #2 inhaler 06/06/18 Aspirin Coated [Ecotrin -] 81 mg PO DAILY #30 tablet.ec 06/06/18 Atorvastatin Ca [Lipitor] 80 mg PO HS 11/08/18 Clopidogrel Bisulfate [Plavix] 75 mg PO DAILY 11/08/18 Finasteride 5 mg PO DAILY 11/08/18 Fluticasone/Salmeterol [Advair Hfa 230-21 Mcg Inhaler] 1 inh PO BID 11/08/18 Hydralazine HCl 25 mg PO TID 11/08/18 Metoprolol Succinate [Toprol Xl] 50 mg PO DAILY 11/08/18 Pantoprazole Sodium [Protonix] 40 mg PO DAILY 11/08/18 Sevelamer Carbonate 800 mg PO DAILY 11/08/18 Tamsulosin HCl [Flomax] 0.4 mg PO DAILY 11/08/18 Family Disease History - Family Disease History Family History: Denies Review of Systems - Review of Systems Constitutional: reports: Malaise Eyes: reports: No Symptoms HENT: reports: No Symptoms Neck: reports: No Symptoms Cardiovascular: reports: Edema Respiratory: reports: No Symptoms Gastrointestinal: reports: No Symptoms Genitourinary: reports: No Symptoms Musculoskeletal: reports: No Symptoms Integumentary: reports: No Symptoms Neurological: reports: No Symptoms Endocrine: reports: No Symptoms Hematology/Lymphatic: reports: No Symptoms Psychiatric: reports: No Symptoms Physical Exam Vital Signs: Vital Signs Temperature 98.2 F 11/08/18 15:45 Pulse Rate 56 L 11/08/18 15:45 Respiratory Rate 18 11/08/18 15:45 Blood Pressure 160/80 11/08/18 15:45 O2 Sat by Pulse Oximetry (%) 98 11/08/18 15:45 Constitutional: Yes: Calm Eyes: Yes: Conjunctiva Clear HENT: Yes: Atraumatic Neck: Yes: Supple Cardiovascular: Yes: S1, S2 Respiratory: Yes: CTA Bilaterally Gastrointestinal: Yes: Normal Bowel Sounds, Soft Musculoskeletal: Yes: WNL Edema: Yes Edema: LLE: 1+, RLE: 1+ Neurological: Yes: Oriented Psychiatric: Yes: Oriented Labs: CBC, BMP 11/07/18 21:59 11/07/18 22:35 Laboratory Tests 06/05/18 06:25 Potassium 4.0 BUN 25 H Creatinine 5.9 H Imaging - Results Chest X-ray: Report Reviewed Problem List - Problems (1) Leg edema Code(s): R60.0 - LOCALIZED EDEMA (2) CHF exacerbation Code(s): I50.9 - HEART FAILURE, UNSPECIFIED Qualifiers: Heart failure type: unspecified Qualified Code(s): I50.9 - Heart failure, unspecified (3) ESRD (end stage renal disease) Code(s): N18.6 - END STAGE RENAL DISEASE Assessment/Plan Current Medications Generic Name Dose Route Start Last Admin Trade Name Freq PRN Reason Stop Dose Admin Albuterol Sulfate 1 amp 11/08/18 10:07 11/08/18 16:15 Ventolin 0.083% Nebulizer Soln - NEB 1 amp Q4H PRN Administration SHORT OF BREATH/WHEEZING Albuterol Sulfate 2 puff 11/08/18 11:02 Ventolin Hfa Inhaler - IH Q4H PRN SHORT OF BREATH/WHEEZING Aspirin 81 mg 11/08/18 11:15 11/08/18 11:54 Ecotrin - PO 81 mg DAILY TL Administration Atorvastatin Calcium 80 mg 11/08/18 22:00 Lipitor - PO HS TL Budesonide/Formoterol Fumarate 2 puff 11/08/18 22:00 Symbicort 80/4.5mcg - IH BID TL Calcium Carbonate 500 mg 11/08/18 22:00 Os-Reuben 500mg - PO BID TL Clopidogrel Bisulfate 75 mg 11/08/18 11:30 11/08/18 11:54 Plavix - PO 75 mg DAILY TL Administration Finasteride 5 mg 11/09/18 10:00 Proscar - PO DAILY TL Heparin Sodium (Porcine) 5,000 unit 11/08/18 14:00 11/08/18 14:45 Heparin - SQ 5,000 unit TID TL Administration Hydralazine HCl 25 mg 11/08/18 14:00 11/08/18 14:45 Apresoline - PO 25 mg TID TL Administration Metoprolol Succinate 50 mg 11/08/18 11:30 11/08/18 11:54 Toprol Xl - PO 50 mg DAILY TL Administration Pantoprazole Sodium 40 mg 11/08/18 11:30 11/08/18 11:54 Protonix - PO 40 mg DAILY TL Administration Sevelamer Carbonate 800 mg 11/08/18 12:00 11/08/18 12:53 Renvela - PO 800 mg TIDCM TL Administration Tamsulosin HCl 0.4 mg 11/08/18 12:00 11/08/18 11:54 Flomax - PO 0.4 mg DAILY TL Administration Zolpidem Tartrate 5 mg 11/08/18 22:00 Ambien - PO HS PRN INSOMNIA Impression 1. ESRD 2. anemia 3. CAD 4. r/o chf 5. hx etoh abuse 6. active smoker 7. non compliance 8. HTN Plan - agree with dose of lasix - follow CTA - HD in am - discussed fluid intake and sophia diet - cardio input appreciated - will follow
[2018-11-08] MEDS ORDERED: SODIUM CHLORIDE 250 ML IV PRN (17:12)
[2018-11-08] MEDS ORDERED: ACETAMINOPHEN 325 MG TABLET (FP) PO ONE (21:05)
[2018-11-08] MEDS: ZOLPIDEM TARTRATE 5 MG TABLET PO PRN (21:10)
[2018-11-08] MEDS: ATORVASTATIN CA 80 MG TABLET (FP) PO SCH (21:10)
[2018-11-08] MEDS: CALCIUM (OYSTER SHELL) 500 MG TABLET (FP) PO SCH (21:36)
[2018-11-08] MEDS: BUDESONIDE/FORMETEROL FUMARATE 80/4.5 mcg INHALER IH SCH (21:53)
[2018-11-09] MEDS: ALBUTEROL SO4 0.083% IH SOL 2.5 MG/3 ML VIAL.NEB. NEB PRN ×3 (04:44→16:23)
[2018-11-09] MEDS ORDERED: ACETAMINOPHEN 325 MG TABLET (FP) ONE (04:47)
[2018-11-09] MEDS: ACETAMINOPHEN 325 MG TABLET (FP) PO PRN ×2 (04:50→13:14)
[2018-11-09 07:31] LABS: BASO % 0.8 % (0-2.0); EOS % 3.9 % (0-4.5); HEMATOCRIT 32.2 % (35.4-49); HEMOGLOBIN 10.4 GM/dL (11.7-16.9); LYMPH % 22.1 % (8-40); MCH 31.6 pg (25.7-33.7); MCHC 32.4 g/dl (32.0-35.9); MEAN CELL VOLUME 97.4 fl (80-96); NEUT % 63.2 % (42.8-82.8); PLATELET COUNT 88 K/MM3 (134-434); RBC 3.31 M/mm3 (4.00-5.60); RDW 16.4 % (11.9-15.9); WHITE BLOOD COUNT 5.5 K/mm3 (4.0-10.0)
[2018-11-09] MEDS: hydrALAZINE HCL 25 MG TABLET (FP) PO SCH ×3 (07:34→21:09)
[2018-11-09] MEDS: HEPARIN NA (PORCINE) 5,000 UNITS/ML 1ML VIAL SQ SCH ×3 (07:35→21:10)
[2018-11-09 08:38] LABS: ALK PHOS 193 U/L (45-117); ANION GAP 14 MMOL/L (8-16); BILIRUBIN,TOTAL 0.5 mg/dL (0.2-1); BLOOD UREA NITROGEN 57 mg/dL (7-18); CALCIUM 8.2 mg/dL (8.5-10.1); CHLORIDE 95 mmol/L (98-107); CO2 22 mmol/L (21-32); GLUCOSE,RANDOM 118 mg/dL (74-106); MAGNESIUM 2.4 mg/dL (1.8-2.4); PHOSPHOROUS 6.6 mg/dL (2.5-4.9); POTASSIUM 4.8 mmol/L (3.5-5.1); SGOT/AST 20 U/L (15-37); SGPT/ALT 22 U/L (13-61); SODIUM 131 mmol/L (136-145); TOT PROT 6.1 g/dl (6.4-8.2)
[2018-11-09] MEDS: SEVELAMER CARBONATE 800 MG TAB (FP) PO SCH ×3 (09:00→17:54)
[2018-11-09 09:32] LABS: CREATININE 8.7 mg/dL (0.55-1.3)
[2018-11-09] MEDS: FINASTERIDE 5 MG TABLET (FP) PO SCH (13:10)
[2018-11-09] MEDS: TAMSULOSIN HCL 0.4 MG CAP PO SCH (13:10)
[2018-11-09] MEDS: ASPIRIN COATED 81 MG TABLET.EC PO SCH (13:10)
[2018-11-09] MEDS: CLOPIDOGREL BISULFATE 75 MG TABLET (FP) PO SCH (13:10)
[2018-11-09] MEDS: PANTOPRAZOLE 40 MG TABLET (FP) PO SCH (13:10)
[2018-11-09] MEDS: CALCIUM (OYSTER SHELL) 500 MG TABLET (FP) PO SCH ×2 (13:10→21:09)
[2018-11-09] MEDS: BUDESONIDE/FORMETEROL FUMARATE 80/4.5 mcg INHALER IH SCH ×2 (13:11→21:10)
[2018-11-09] MEDS ORDERED: SODIUM CHLORIDE 250 ML IV PRN (13:53)
--- NOTE | 2018-11-09 13:53 | PN ---
Progress Note, Physician History of Present Illness: Pt seen and examined at bedside. He is awake and alert. He tolerated HD. - Current Medication List Current Medications: Active Medications Acetaminophen (Tylenol -) 650 mg PO Q6H PRN PRN Reason: Fever Or Pain Last Admin: 11/09/18 13:14 Dose: 650 mg Albuterol Sulfate (Ventolin 0.083% Nebulizer Soln -) 1 amp NEB Q4H PRN PRN Reason: SHORT OF BREATH/WHEEZING Last Admin: 11/09/18 07:30 Dose: 1 amp Albuterol Sulfate (Ventolin Hfa Inhaler -) 2 puff IH Q4H PRN PRN Reason: SHORT OF BREATH/WHEEZING Aspirin (Ecotrin -) 81 mg PO DAILY [facility] Last Admin: 11/09/18 13:10 Dose: 81 mg Atorvastatin Calcium (Lipitor -) 80 mg PO HS [facility] Last Admin: 11/08/18 21:10 Dose: 80 mg Budesonide/Formoterol Fumarate (Symbicort 80/4.5mcg -) 2 puff IH BID [facility] Calcium Carbonate (Os-Reuben 500mg -) 500 mg PO BID [facility] Last Admin: 11/09/18 13:10 Dose: 500 mg Clopidogrel Bisulfate (Plavix -) 75 mg PO DAILY [facility] Last Admin: 11/09/18 13:10 Dose: 75 mg Finasteride (Proscar -) 5 mg PO DAILY [facility] Last Admin: 11/09/18 13:10 Dose: 5 mg Heparin Sodium (Porcine) (Heparin -) 5,000 unit SQ TID [facility] Last Admin: 11/09/18 13:10 Dose: 5,000 unit Hydralazine HCl (Apresoline -) 25 mg PO TID [facility] Last Admin: 11/09/18 13:10 Dose: 25 mg Sodium Chloride (Normal Saline -) 250 mls @ 3,000 mls/hr IV PRN PRN PRN Reason: Hypotension during Dialysis Stop: 11/09/18 17:12 Metoprolol Succinate (Toprol Xl -) 50 mg PO DAILY [facility] Last Admin: 11/09/18 13:10 Dose: 50 mg Pantoprazole Sodium (Protonix -) 40 mg PO DAILY [facility] Last Admin: 11/09/18 13:10 Dose: 40 mg Sevelamer Carbonate (Renvela -) 800 mg PO TIDCM [facility] Last Admin: 11/09/18 13:10 Dose: 800 mg Tamsulosin HCl (Flomax -) 0.4 mg PO DAILY TL Last Admin: 11/09/18 13:10 Dose: 0.4 mg Zolpidem Tartrate (Ambien -) 5 mg PO HS PRN PRN Reason: INSOMNIA Last Admin: 11/08/18 21:10 Dose: 5 mg - Objective Vital Signs: Vital Signs Temperature 97.9 F 11/09/18 09:00 Pulse Rate 59 L 11/09/18 12:20 Respiratory Rate 18 11/09/18 12:20 Blood Pressure 151/62 11/09/18 12:20 O2 Sat by Pulse Oximetry (%) 93 L 11/09/18 09:00 Constitutional: Yes: Calm Eyes: Yes: Conjunctiva Clear HENT: Yes: Atraumatic Neck: Yes: Supple Cardiovascular: Yes: S1, S2 Respiratory: Yes: CTA Bilaterally Gastrointestinal: Yes: Normal Bowel Sounds, Soft Edema: Yes Edema: LLE: 1+, RLE: 1+ Neurological: Yes: Oriented Psychiatric: Yes: Oriented Labs: CBC, BMP 11/09/18 06:30 11/09/18 06:30 INR, PTT INR 0.97 (0.83-1.09) 11/07/18 21:59 Problem List - Problems (1) Leg edema Code(s): R60.0 - LOCALIZED EDEMA (2) CHF exacerbation Code(s): I50.9 - HEART FAILURE, UNSPECIFIED Qualifiers: Heart failure type: unspecified Qualified Code(s): I50.9 - Heart failure, unspecified (3) ESRD (end stage renal disease) Code(s): N18.6 - END STAGE RENAL DISEASE Assessment/Plan Current Medications Generic Name Dose Route Start Last Admin Trade Name Freq PRN Reason Stop Dose Admin Acetaminophen 650 mg 11/09/18 04:09 11/09/18 13:14 Tylenol - PO 650 mg Q6H PRN Administration Fever Or Pain Albuterol Sulfate 1 amp 11/08/18 10:07 11/09/18 07:30 Ventolin 0.083% Nebulizer Soln - NEB 1 amp Q4H PRN Administration SHORT OF BREATH/WHEEZING Albuterol Sulfate 2 puff 11/08/18 11:02 Ventolin Hfa Inhaler - IH Q4H PRN SHORT OF BREATH/WHEEZING Aspirin 81 mg 12/29/18 11:15 11/09/18 13:10 Ecotrin - PO 81 mg DAILY TL Administration Atorvastatin Calcium 80 mg 11/08/18 22:00 11/08/18 21:10 Lipitor - PO 80 mg HS TL Administration Budesonide/Formoterol Fumarate 2 puff 11/09/18 13:30 Symbicort 80/4.5mcg - IH BID TL Calcium Carbonate 500 mg 11/08/18 22:00 11/09/18 13:10 Os-Reuben 500mg - PO 500 mg BID TL Administration Clopidogrel Bisulfate 75 mg 11/08/18 11:30 11/09/18 13:10 Plavix - PO 75 mg DAILY TL Administration Finasteride 5 mg 11/09/18 10:00 11/09/18 13:10 Proscar - PO 5 mg DAILY TL Administration Heparin Sodium (Porcine) 5,000 unit 11/08/18 14:00 11/09/18 13:10 Heparin - SQ 5,000 unit TID TL Administration Hydralazine HCl 25 mg 11/08/18 14:00 11/09/18 13:10 Apresoline - PO 25 mg TID TL Administration Sodium Chloride 250 mls @ 3,000 mls/hr 11/08/18 17:12 Normal Saline - IV 11/09/18 17:12 PRN PRN Hypotension during Dialysis Metoprolol Succinate 50 mg 11/08/18 11:30 11/09/18 13:10 Toprol Xl - PO 50 mg DAILY TL Administration Pantoprazole Sodium 40 mg 11/08/18 11:30 11/09/18 13:10 Protonix - PO 40 mg DAILY TL Administration Sevelamer Carbonate 800 mg 11/08/18 12:00 11/09/18 13:10 Renvela - PO 800 mg TIDCM TL Administration Tamsulosin HCl 0.4 mg 11/08/18 12:00 11/09/18 13:10 Flomax - PO 0.4 mg DAILY TL Administration Zolpidem Tartrate 5 mg 11/08/18 22:00 11/08/18 21:10 Ambien - PO 5 mg HS PRN Administration INSOMNIA Impression 1. ESRD 2. anemia 3. CAD 4. r/o chf 5. hx etoh abuse 6. active smoker 7. non compliance 8. HTN Plan - will dialyze again tomorrow - follow cta results - discussed fluid intake and renal diet - cardio input appreciated - will follow
--- NOTE | 2018-11-09 18:32 | PN ---
Progress Note (short form) - Note Progress Note: Subjective: No fever or chills. leg pain and edema improved Objective: Vital Signs: Last Vital Signs Temp Pulse Resp BP Pulse Ox 97.4 F L 61 18 176/64 H 93 L 11/09/18 14:00 11/09/18 14:00 11/09/18 14:00 11/09/18 14:00 11/09/18 09:00 Laboratory Results - last 24 hr 11/09/18 11/09/18 06:30 06:30 WBC 5.5 RBC 3.31 L Hgb 10.4 L Hct 32.2 L MCV 97.4 H MCH 31.6 MCHC 32.4 RDW 16.4 H Plt Count 88 L MPV 9.0 Absolute Neuts (auto) 3.5 Neutrophils % 63.2 Lymphocytes % 22.1 Monocytes % 10.0 Eosinophils % 3.9 Basophils % 0.8 Nucleated RBC % 0 Sodium 131 L Potassium 4.8 Chloride 95 L Carbon Dioxide 22 Anion Gap 14 BUN 57 H Creatinine 8.7 H* Creat Clearance w eGFR 5.98 Random Glucose 118 H Calcium 8.2 L Phosphorus 6.6 H Magnesium 2.4 Total Bilirubin 0.5 AST 20 ALT 22 Alkaline Phosphatase 193 H Troponin I 0.11 H Total Protein 6.1 L Albumin 3.0 L Physical Exam: NAD, AAox3. HEENT: MMM Cv: RRR, no MRG Lungs: decreased breath sounds at bases . no crackles Abd: soft ,TTP in LLQ and RLQ and RUQ. nl BS . no rebound Ext : b/l Leg edema improved. stillhas some erythema and bruising ASSESSMENT AND PLAN: 78 y/o man h/o CAD, s/p CABG, stents, ESRD MWF, HTN, HLP, diastolic heart failure , and other medical problems who presented with LE edema x 1-2 weeks. he was found to be volume overloaded 1- Volume overload: due to heart failure and ESRD. - s/p HD today with improvement in volume status. HD again tomorrow - echo pending - cont BB - appreciate card and renal consults 2- ESRD: - cont sevelamir - Hd as above 3- PVD: prelim read of CTA is severe L superficial femoral artery stenosis and R popliteal artery stenosis - cont ASa , plavix and statin - has palpable DP bilaterally - vascular 4- Elevated trop: No acute ischemic EKG changes. due to renal disease - cont Asa and plavix, BB and statin 5- Abd pain: US neg . monitor dispo : HLOC Visit type - Emergency Visit Emergency Visit: Yes ED Registration Date: 11/08/18 Care time: The patient presented to the Emergency Department on the above date and was hospitalized for further evaluation of their emergent condition. - New Patient This patient is new to me today: No - Critical Care Critical Care patient: No
[2018-11-09] MEDS ORDERED: PT OWN MED DRAWER 7, Y5N ONE (20:57)
[2018-11-09] MEDS: ATORVASTATIN CA 80 MG TABLET (FP) PO SCH (21:09)
[2018-11-09] MEDS: ZOLPIDEM TARTRATE 5 MG TABLET PO PRN (21:09)
[2018-11-10] MEDS: hydrALAZINE HCL 25 MG TABLET (FP) PO SCH ×3 (05:56→21:23)
[2018-11-10] MEDS: HEPARIN NA (PORCINE) 5,000 UNITS/ML 1ML VIAL SQ SCH ×3 (05:56→21:23)
[2018-11-10] MEDS ORDERED: MAG HYDROX/AL HYDROX/SIMETH -MYLANTA- ORAL SUSPENSION PO ONE (07:02)
[2018-11-10] MEDS ORDERED: PT OWN MED DRAWER 7, Y5N ONE (09:17)
[2018-11-10] MEDS: ASPIRIN COATED 81 MG TABLET.EC PO SCH (09:18)
[2018-11-10] MEDS: SEVELAMER CARBONATE 800 MG TAB (FP) PO SCH ×3 (09:18→17:21)
[2018-11-10] MEDS: CLOPIDOGREL BISULFATE 75 MG TABLET (FP) PO SCH (09:18)
[2018-11-10] MEDS: CALCIUM (OYSTER SHELL) 500 MG TABLET (FP) PO SCH ×2 (09:18→21:23)
[2018-11-10] MEDS: TAMSULOSIN HCL 0.4 MG CAP PO SCH (09:18)
[2018-11-10] MEDS: PANTOPRAZOLE 40 MG TABLET (FP) PO SCH (09:18)
[2018-11-10] MEDS: FINASTERIDE 5 MG TABLET (FP) PO SCH (09:19)
[2018-11-10] MEDS: BUDESONIDE/FORMETEROL FUMARATE 80/4.5 mcg INHALER IH SCH ×2 (09:19→22:07)
--- NOTE | 2018-11-10 10:13 | PN ---
Physical Exam: SUBJECTIVE: Patient seen and examined at bedside. No acute events overnight. Denies chest pain, sob, abd pain, n/v, f/c, escudero/d. OBJECTIVE: Vital Signs Temperature 98.3 F 11/10/18 06:00 Pulse Rate 63 11/10/18 06:00 Respiratory Rate 18 11/10/18 06:00 Blood Pressure 167/70 11/10/18 06:00 O2 Sat by Pulse Oximetry (%) 93 L 11/09/18 21:00 GENERAL: AAOx3 HEENT: AT/NC. EOMI. LUKE. dry mucus membranes LUNGS: wheeze+; crackles right lung base HEART: Regular rate and rhythm, normal S1 and S2 without murmur, rub or gallop. ABDOMEN: Soft, NT/ND; RUQ MUSCULOSKELETAL: Normal range of motion at all joints. No bony deformities or tenderness. No CVA tenderness. EXTREMITIES: edema, warm, tender, RLE fischer with healed scab small area of surrounding erythema; no open laceration /ulcers/wounds. Fistula seen on L arm , palpable thrill noted. NEUROLOGICAL: Cranial nerves II-XII intact. Normal speech. strength 5/5 throughout muscle groups; sensation intact; PSYCHIATRIC: Cooperative. Good eye contact. Appropriate mood and affect. SKIN: Warm, dry, normal turgor, no rashes or lesions noted, normal capillary refill. CBCD WBC 5.5 K/mm3 (4.0-10.0) 11/09/18 06:30 RBC 3.31 M/mm3 (4.00-5.60) L 11/09/18 06:30 Hgb 10.4 GM/dL (11.7-16.9) L 11/09/18 06:30 Hct 32.2 % (35.4-49) L 11/09/18 06:30 MCV 97.4 fl (80-96) H 11/09/18 06:30 MCHC 32.4 g/dl (32.0-35.9) 11/09/18 06:30 RDW 16.4 % (11.9-15.9) H 11/09/18 06:30 Plt Count 88 K/MM3 (134-434) L 11/09/18 06:30 MPV 9.0 fl (7.5-11.1) 11/09/18 06:30 CMP Sodium 131 mmol/L (136-145) L 11/09/18 06:30 Potassium 4.8 mmol/L (3.5-5.1) 11/09/18 06:30 Chloride 95 mmol/L (98-107) L 11/09/18 06:30 Carbon Dioxide 22 mmol/L (21-32) 11/09/18 06:30 Anion Gap 14 MMOL/L (8-16) 11/09/18 06:30 BUN 57 mg/dL (7-18) H 11/09/18 06:30 Creatinine 8.7 mg/dL (0.55-1.3) H* 11/09/18 06:30 Creat Clearance w eGFR 5.98 (>60) 11/09/18 06:30 Calcium 8.2 mg/dL (8.5-10.1) L 11/09/18 06:30 Total Bilirubin 0.5 mg/dL (0.2-1) 11/09/18 06:30 AST 20 U/L (15-37) 11/09/18 06:30 ALT 22 U/L (13-61) 11/09/18 06:30 Alkaline Phosphatase 193 U/L (45-117) H 11/09/18 06:30 Total Protein 6.1 g/dl (6.4-8.2) L 11/09/18 06:30 Albumin 3.0 g/dl (3.4-5.0) L 11/09/18 06:30 Active Medications Acetaminophen (Tylenol -) 650 mg PO Q6H PRN PRN Reason: Fever Or Pain Last Admin: 11/09/18 13:14 Dose: 650 mg Al Hydroxide/Mg Hydroxide (Mylanta Suspension -) 30 ml PO Q6HPO [facility] Albuterol Sulfate (Ventolin 0.083% Nebulizer Soln -) 1 amp NEB Q4H PRN PRN Reason: SHORT OF BREATH/WHEEZING Last Admin: 11/09/18 16:23 Dose: 1 amp Albuterol Sulfate (Ventolin Hfa Inhaler -) 2 puff IH Q4H PRN PRN Reason: SHORT OF BREATH/WHEEZING Aspirin (Ecotrin -) 81 mg PO DAILY [facility] Last Admin: 11/10/18 09:18 Dose: 81 mg Atorvastatin Calcium (Lipitor -) 80 mg PO HS [facility] Last Admin: 11/09/18 21:09 Dose: 80 mg Budesonide/Formoterol Fumarate (Symbicort 80/4.5mcg -) 2 puff IH BID [facility] Last Admin: 11/10/18 09:19 Dose: 2 puff Calcium Carbonate (Os-Reuben 500mg -) 500 mg PO BID [facility] Last Admin: 11/10/18 09:18 Dose: 500 mg Clopidogrel Bisulfate (Plavix -) 75 mg PO DAILY [facility] Last Admin: 11/10/18 09:18 Dose: 75 mg Epoetin Efrain (Epogen -) 4,000 unit IVPUSH ONCE ONE Stop: 11/10/18 13:54 Finasteride (Proscar -) 5 mg PO DAILY [facility] Last Admin: 11/10/18 09:19 Dose: 5 mg Heparin Sodium (Porcine) (Heparin -) 5,000 unit SQ TID [facility] Last Admin: 11/10/18 05:56 Dose: Not Given Heparin Sodium (Porcine) (Heparin -) 1,000 unit IVPUSH ONCE ONE Stop: 11/10/18 13:54 Hydralazine HCl (Apresoline -) 25 mg PO TID [facility] Last Admin: 11/10/18 05:56 Dose: Not Given Sodium Chloride (Normal Saline -) 250 mls @ 3,000 mls/hr IV PRN PRN PRN Reason: Hypotension during Dialysis Stop: 11/10/18 13:53 Metoprolol Succinate (Toprol Xl -) 50 mg PO DAILY [facility] Last Admin: 11/10/18 09:22 Dose: Not Given Pantoprazole Sodium (Protonix -) 40 mg PO DAILY [facility] Last Admin: 11/10/18 09:18 Dose: 40 mg Sevelamer Carbonate (Renvela -) 800 mg PO TIDCM [facility] Last Admin: 11/10/18 09:18 Dose: 800 mg Tamsulosin HCl (Flomax -) 0.4 mg PO DAILY [facility] Last Admin: 11/10/18 09:18 Dose: 0.4 mg Zolpidem Tartrate (Ambien -) 5 mg PO HS PRN PRN Reason: INSOMNIA Last Admin: 11/09/18 21:09 Dose: 5 mg IMAGING: * CTA Lower extremity: continuous posterior tibial artery run off bilaterally. Heavy calcifications in R. RIGHT: Bifurcation is patent w/ patent deep FA. SFA revealed calcified plaque w/ mild to mod disease. Popliteal a is patent. Posterior tibial a heavily calcified. Some flow is suspected. LEFT: Common femoral artery bifurcation patent w/ patent femoral artery. Popliteal a is patent. All 3 vessels are patent w/ segmental occlusion of anterior tibial artery in mid-calf region. Peroneal and posterior tibial artery patent into ankle w/ posterior tibial artery continuous into lateral plantar vessels. * Nuclear Stress Test (06/05/18): EF 52%, normal perfusion of myocardium * Duplex of LE: Mild atherosclerotic disease w/o evidence of occlusions or HD significant stenoses. * Abd U/S: No acute pathology. ASSESSMENT/PLAN: This is 78 year old male with a history of ESRD, dCHF, CAD, HTN, HLD who presents with two weeks of bilateral leg swelling and shortness of breath. R/o acute exacerbation of chf vs volume overload from ESRD. #Volume Overload; 2/2 possible CHF exacerbation vs. overload from ESRD -HD today -Toprol XL 50 mg QD -Hydralazine 25 mg PO TID and would increase if needed for BP control, per cardio -monitor bmp; renal function -monitor urine output -strict I/Os, daily weight -Echo ordered -Per nephro, give Lasix 40 mg PO on non-HD days starting tomorrow #Elevated troponin in setting of ESRD. 0.11 today. -Chronic elevated, decreased from previous; although carolyn f/u with repeat due to flattening t waves on ECG #RUQ abdominal pain -Elevated alk phos; can be secondary to ESRD -GGT 353 -Abd U/S noted above, unremarkable. #PAD; b/l pedal pulses pulses present/warm extremities -CTA appreciated. Per vasc, CTA findings not concerning for acute pathology, likely age-related changes. Await recs. #CAD; chronic. -Aspirin 81 mg PO QD, Plavix 75 mg PO QD, Metoprolol Succinate 50 mg PO QD #HTN; stable. -Hydralazine 25 mg PO TID #HLD -Lipitor 80 mg PO QD #COPD -cont inhaled bronchodilators Symbicort 1 puff BID -Albuterol PRN #Prophylaxis -GI: Protonix 40 mg PO QD -DVT: Heparin 5000U SQ TID dispo -cont to monitor on med-surg -medications reconciled Visit type - Emergency Visit Emergency Visit: Yes ED Registration Date: 11/08/18 Care time: The patient presented to the Emergency Department on the above date and was hospitalized for further evaluation of their emergent condition. - New Patient This patient is new to me today: Yes Date on this admission: 11/10/18 - Critical Care Critical Care patient: No
[2018-11-10 10:32] LABS: HEMOGLOBIN 10.6 GM/dL (11.7-16.9); MCH 31.6 pg (25.7-33.7); MCHC 32.2 g/dl (32.0-35.9); MEAN PLT VOLUME 8.8 fl (7.5-11.1); PLATELET COUNT 91 K/MM3 (134-434); RBC 3.36 M/mm3 (4.00-5.60); RDW 16.8 % (11.9-15.9); WHITE BLOOD COUNT 6.1 K/mm3 (4.0-10.0)
[2018-11-10] MEDS: EPOETIN ALFA 2,000 UNIT/1 ML VIAL IVPUSH ONE (11:23)
[2018-11-10] MEDS: HEPARIN NA (PORCINE) 5,000 UNITS/ML 1ML VIAL IVPUSH ONE ×2 (11:24→15:15)
[2018-11-10 11:48] LABS: ALBUMIN 3.2 g/dl (3.4-5.0); ALK PHOS 243 U/L (45-117); ANION GAP 10 MMOL/L (8-16); BILIRUBIN,TOTAL 0.5 mg/dL (0.2-1); BLOOD UREA NITROGEN 45 mg/dL (7-18); CALCIUM 8.1 mg/dL (8.5-10.1); CHLORIDE 100 mmol/L (98-107); CO2 26 mmol/L (21-32); CREATININE 6.9 mg/dL (0.55-1.3); GLUCOSE,RANDOM 144 mg/dL (74-106); POTASSIUM 4.8 mmol/L (3.5-5.1); SGOT/AST 31 U/L (15-37); SGPT/ALT 28 U/L (13-61); SODIUM 136 mmol/L (136-145); TOT PROT 6.3 g/dl (6.4-8.2)
[2018-11-10] MEDS ORDERED: MAG HYDROX/AL HYDROX/SIMETH -MYLANTA- ORAL SUSPENSION PO SCH (12:00)
--- NOTE | 2018-11-10 12:01 | PN ---
Teaching Attending Note Name of Resident: Danielle Naqvi ATTENDING PHYSICIAN STATEMENT I saw and evaluated the patient. I reviewed the resident's note and discussed the case with the resident. I agree with the resident's findings and plan as documented. SUBJECTIVE: seen at 7 am . has abd pain. feels nauseous. OBJECTIVE: NAD, AAox3. HEENT: MMM Cv: RRR, no MRG Lungs: CTAB Abd: soft ,TTP in all quadrants. no rebound tenderness or guarding. NL BS Ext : b/l Leg edema improved. 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 DP 2+ b/l ASSESSMENT AND PLAN: 78 y/o man h/o CAD, s/p CABG, stents, ESRD MWF, HTN, HLP, diastolic heart failure , and other medical problems who presented with LE edema x 1-2 weeks. he was found to be volume overloaded 1- Volume overload: due to heart failure and ESRD. - s/p HD yesterday with improvement in volume status . - Hd today - echo pending - cont BB - will ask renal if lasix should be added on non-HD days 2- ESRD: - cont sevelamir - Hd as above 3- PVD: prelim read of CTA is severe L superficial femoral artery stenosis and R popliteal artery stenosis - will ask radiologist for final read. - cont ASa , plavix and statin - has palpable DP bilaterally - vascular eval pending 4- Elevated trop: No acute ischemic EKG changes. due to renal disease - cont Asa and plavix, BB and statin 5- Abd pain: unclear etiology. US neg . will obtain CT scan . monitor cont protonix Dispo : depends on work up and volume status. if w/u is neg and no more need for HD , then can be dc
[2018-11-10] MEDS: ACETAMINOPHEN 325 MG TABLET (FP) PO PRN ×2 (12:11→19:22)
--- NOTE | 2018-11-10 13:59 | PN ---
Progress Note, Physician Chief Complaint: Still with some sob LE edema improving +abdominal pain going down for CT scan History of Present Illness: 78 year old male with a history of ESRD on HD, known CAD CABG 03/2017, HTN, HLD, Smoker, and known CHF. He presents now with a 2 week history of leg swelling and JAIMES. Occasional epigastric pain, denies chest pain. Last Nuclear Stress Test 06/05/18 EF 52%, normal perfusion of myocardium. - Current Medication List Current Medications: Active Medications Acetaminophen (Tylenol -) 650 mg PO Q6H PRN PRN Reason: Fever Or Pain Last Admin: 11/10/18 12:11 Dose: 650 mg Albuterol Sulfate (Ventolin 0.083% Nebulizer Soln -) 1 amp NEB Q4H PRN PRN Reason: SHORT OF BREATH/WHEEZING Last Admin: 11/09/18 16:23 Dose: 1 amp Albuterol Sulfate (Ventolin Hfa Inhaler -) 2 puff IH Q4H PRN PRN Reason: SHORT OF BREATH/WHEEZING Aspirin (Ecotrin -) 81 mg PO DAILY [facility] Last Admin: 11/10/18 09:18 Dose: 81 mg Atorvastatin Calcium (Lipitor -) 80 mg PO HS [facility] Last Admin: 11/09/18 21:09 Dose: 80 mg Budesonide/Formoterol Fumarate (Symbicort 80/4.5mcg -) 2 puff IH BID [facility] Last Admin: 11/10/18 09:19 Dose: 2 puff Calcium Carbonate (Os-Reuben 500mg -) 500 mg PO BID [facility] Last Admin: 11/10/18 09:18 Dose: 500 mg Clopidogrel Bisulfate (Plavix -) 75 mg PO DAILY [facility] Last Admin: 11/10/18 09:18 Dose: 75 mg Finasteride (Proscar -) 5 mg PO DAILY [facility] Last Admin: 11/10/18 09:19 Dose: 5 mg Heparin Sodium (Porcine) (Heparin -) 5,000 unit SQ TID [facility] Last Admin: 11/10/18 05:56 Dose: Not Given Hydralazine HCl (Apresoline -) 25 mg PO TID [facility] Last Admin: 11/10/18 05:56 Dose: Not Given Metoprolol Succinate (Toprol Xl -) 50 mg PO DAILY [facility] Last Admin: 11/10/18 09:22 Dose: Not Given Pantoprazole Sodium (Protonix -) 40 mg PO DAILY [facility] Last Admin: 11/10/18 09:18 Dose: 40 mg Sevelamer Carbonate (Renvela -) 800 mg PO TIDCM [facility] Last Admin: 11/10/18 11:59 Dose: Not Given Tamsulosin HCl (Flomax -) 0.4 mg PO DAILY [facility] Last Admin: 11/10/18 09:18 Dose: 0.4 mg Zolpidem Tartrate (Ambien -) 5 mg PO HS PRN PRN Reason: INSOMNIA Last Admin: 11/09/18 21:09 Dose: 5 mg - Objective Vital Signs: Vital Signs Temperature 97.8 F 11/10/18 10:00 Pulse Rate 66 11/10/18 13:30 Respiratory Rate 18 11/10/18 13:30 Blood Pressure 148/72 11/10/18 13:30 O2 Sat by Pulse Oximetry (%) 96 11/10/18 09:00 Constitutional: Yes: No Distress Neck: Yes: Supple Cardiovascular: Yes: Regular Rate and Rhythm, JVD, Murmur (+2/6 LLSB), S1, S2 Respiratory: Yes: Rales Edema: LLE: Trace, RLE: Trace Labs: CBC, BMP 11/10/18 10:10 11/10/18 10:10 INR, PTT INR 0.97 (0.83-1.09) 11/07/18 21:59 Assessment/Plan 78 year old male with a history of ESRD on HD, known CAD CABG 03/2017, HTN, HLD, Smoker, and known CHF. He presents now with a 2 week history of leg swelling and JAIMES. Occasional epigastric pain, denies chest pain. Last Nuclear Stress Test 06/05/18 EF 52%, normal perfusion of myocardium. CHF Pending echocardiogram ?medication/fluid compliance Attempt negative balance with dialysis Continue Toprol XL 50 mg dialy Continue Hydralizine 25 mg PO TID and would increase if needed for BP control CAD Continue ASA/Plavix/Statin
[2018-11-10] MEDS: ALBUTEROL SO4 0.083% IH SOL 2.5 MG/3 ML VIAL.NEB. NEB PRN ×2 (15:42→19:22)
--- NOTE | 2018-11-10 15:56 | ECHO ---
Name: MARIA TERESA BYRD Kyung Exam:Adult Echocardiogram Study Date: 11/10/2018 02:35 PM Age: 78 yrs Reason For Study: VOLUME OVERLOAD Height: 74 in Weight: 156 lb BSA: 2.0 m2 MMode/2D Measurements & Calculations IVSd: 0.96 cm Ao root diam: 2.6 cm LVIDd: 5.7 cm LA dimension: 4.6 cm LVIDs: 3.9 cm LVPWd: 0.90 cm EDV(Teich): 162.2 ml LAV (MOD-bp): 96.0 ml ESV(Teich): 66.9 ml Doppler Measurements & Calculations MR max corey: 278.3 cm/sec TR max corey: 223.3 cm/sec MR max P.0 mmHg TR max P.3 mmHg Med Peak E' Corey: 2.4 cm/sec Lat Peak E' Corey: 5.9 cm/sec Procedure A complete two-dimensional transthoracic echocardiogram was performed (2D, M-mode, Doppler and color flow Doppler). Left Ventricle The left ventricle is normal in size. Left ventricular systolic function is low normal. Ejection Frac tion = 55-60%. No regional wall motion abnormalities noted. Right Ventricle The right ventricle is normal size. The right ventricular systolic function is normal. Atria The left atrium is mildly dilated. Right atrial size is normal. Mitral Valve The mitral valve is normal in structure and function. There is mild mitral regurgitation. Tricuspid Valve The tricuspid valve is normal in structure and function. There is mild tricuspid regurgitation. Pulmo nary artery systolic pressure is at least 30 mmHg assuming RA pressure of 3 mmHg. Aortic Valve The aortic valve is normal in structure and function. No aortic regurgitation is present. Pulmonic Valve The pulmonic valve is not well visualized. Great Vessels The aortic root is normal size. Pericardium/Pleura There is no pericardial effusion. Interpretation Summary The left ventricle is normal in size. Left ventricular systolic function is low normal. No regional wall motion abnormalities noted. Ejection Fraction = 55-60%. The right ventricular systolic function is normal. The left atrium is mildly dilated. Right atrial size is normal. There is mild mitral regurgitation. There is mild tricuspid regurgitation. Pulmonary artery systolic pressure is at least 30 mmHg assuming RA pressure of 3 mmHg There is no pericardial effusion. When compared to study dated 06/04/18, no significant changes Mega Cross MD 11/10/2018 03:56 PM
[2018-11-10 16:00] VITALS: BMI 19.0
--- NOTE | 2018-11-10 16:16 | PN ---
Progress Note, Physician History of Present Illness: Pt seen and examined at bedside. He tolerated HD. He denies shortness of breath. He complains of lower ext pain. - Current Medication List Current Medications: Active Medications Acetaminophen (Tylenol -) 650 mg PO Q6H PRN PRN Reason: Fever Or Pain Last Admin: 11/10/18 12:11 Dose: 650 mg Albuterol Sulfate (Ventolin 0.083% Nebulizer Soln -) 1 amp NEB Q4H PRN PRN Reason: SHORT OF BREATH/WHEEZING Last Admin: 11/10/18 15:42 Dose: 1 amp Albuterol Sulfate (Ventolin Hfa Inhaler -) 2 puff IH Q4H PRN PRN Reason: SHORT OF BREATH/WHEEZING Aspirin (Ecotrin -) 81 mg PO DAILY [facility] Last Admin: 11/10/18 09:18 Dose: 81 mg Atorvastatin Calcium (Lipitor -) 80 mg PO HS [facility] Last Admin: 11/09/18 21:09 Dose: 80 mg Budesonide/Formoterol Fumarate (Symbicort 80/4.5mcg -) 2 puff IH BID [facility] Last Admin: 11/10/18 09:19 Dose: 2 puff Calcium Carbonate (Os-Reuben 500mg -) 500 mg PO BID [facility] Last Admin: 11/10/18 09:18 Dose: 500 mg Clopidogrel Bisulfate (Plavix -) 75 mg PO DAILY [facility] Last Admin: 11/10/18 09:18 Dose: 75 mg Finasteride (Proscar -) 5 mg PO DAILY [facility] Last Admin: 11/10/18 09:19 Dose: 5 mg Heparin Sodium (Porcine) (Heparin -) 5,000 unit SQ TID [facility] Last Admin: 11/10/18 15:13 Dose: 5,000 unit Hydralazine HCl (Apresoline -) 25 mg PO TID [facility] Last Admin: 11/10/18 15:13 Dose: 25 mg Metoprolol Succinate (Toprol Xl -) 50 mg PO DAILY [facility] Last Admin: 11/10/18 09:22 Dose: Not Given Pantoprazole Sodium (Protonix -) 40 mg PO DAILY [facility] Last Admin: 11/10/18 09:18 Dose: 40 mg Sevelamer Carbonate (Renvela -) 800 mg PO TIDCM [facility] Last Admin: 11/10/18 11:59 Dose: Not Given Tamsulosin HCl (Flomax -) 0.4 mg PO DAILY [facility] Last Admin: 11/10/18 09:18 Dose: 0.4 mg Zolpidem Tartrate (Ambien -) 5 mg PO HS PRN PRN Reason: INSOMNIA Last Admin: 11/09/18 21:09 Dose: 5 mg - Objective Vital Signs: Vital Signs Temperature 98.2 F 11/10/18 14:29 Pulse Rate 68 11/10/18 14:29 Respiratory Rate 22 H 11/10/18 14:29 Blood Pressure 169/83 11/10/18 14:29 O2 Sat by Pulse Oximetry (%) 96 11/10/18 09:00 Constitutional: Yes: Calm Eyes: Yes: Conjunctiva Clear HENT: Yes: Atraumatic Neck: Yes: Supple Cardiovascular: Yes: S1, S2 Respiratory: Yes: CTA Bilaterally Gastrointestinal: Yes: Soft Musculoskeletal: Yes: WNL Edema: Yes Edema: LLE: 1+, RLE: 1+ Neurological: Yes: Oriented Psychiatric: Yes: Oriented Labs: CBC, BMP 11/10/18 10:10 11/10/18 10:10 INR, PTT INR 0.97 (0.83-1.09) 11/07/18 21:59 Problem List - Problems (1) Leg edema Code(s): R60.0 - LOCALIZED EDEMA (2) CHF exacerbation Code(s): I50.9 - HEART FAILURE, UNSPECIFIED Qualifiers: Heart failure type: unspecified Qualified Code(s): I50.9 - Heart failure, unspecified (3) ESRD (end stage renal disease) Code(s): N18.6 - END STAGE RENAL DISEASE Assessment/Plan Current Medications Generic Name Dose Route Start Last Admin Trade Name Freq PRN Reason Stop Dose Admin Acetaminophen 650 mg 11/09/18 04:09 11/10/18 12:11 Tylenol - PO 650 mg Q6H PRN Administration Fever Or Pain Albuterol Sulfate 1 amp 11/08/18 10:07 11/10/18 15:42 Ventolin 0.083% Nebulizer Soln - NEB 1 amp Q4H PRN Administration SHORT OF BREATH/WHEEZING Albuterol Sulfate 2 puff 11/08/18 11:02 Ventolin Hfa Inhaler - IH Q4H PRN SHORT OF BREATH/WHEEZING Aspirin 81 mg 11/08/18 11:15 11/10/18 09:18 Ecotrin - PO 81 mg DAILY [facility] Administration Atorvastatin Calcium 80 mg 11/08/18 22:00 11/09/18 21:09 Lipitor - PO 80 mg HS [facility] Administration Budesonide/Formoterol Fumarate 2 puff 11/09/18 13:30 11/10/18 09:19 Symbicort 80/4.5mcg - IH 2 puff BID [facility] Administration Calcium Carbonate 500 mg 11/08/18 22:00 11/10/18 09:18 Os-Reuben 500mg - PO 500 mg BID [facility] Administration Clopidogrel Bisulfate 75 mg 11/08/18 11:30 11/10/18 09:18 Plavix - PO 75 mg DAILY [facility] Administration Finasteride 5 mg 11/09/18 10:00 11/10/18 09:19 Proscar - PO 5 mg DAILY [facility] Administration Heparin Sodium (Porcine) 5,000 unit 11/08/18 14:00 11/10/18 15:13 Heparin - SQ 5,000 unit TID [facility] Administration Hydralazine HCl 25 mg 11/08/18 14:00 11/10/18 15:13 Apresoline - PO 25 mg TID [facility] Administration Metoprolol Succinate 50 mg 11/08/18 11:30 11/10/18 09:22 Toprol Xl - PO Not Given DAILY [facility] Pantoprazole Sodium 40 mg 11/08/18 11:30 11/10/18 09:18 Protonix - PO 40 mg DAILY [facility] Administration Sevelamer Carbonate 800 mg 11/08/18 12:00 11/10/18 11:59 Renvela - PO Not Given TIDCM [facility] Tamsulosin HCl 0.4 mg 11/08/18 12:00 11/10/18 09:18 Flomax - PO 0.4 mg DAILY [facility] Administration Zolpidem Tartrate 5 mg 11/08/18 22:00 11/09/18 21:09 Ambien - PO 5 mg HS PRN Administration INSOMNIA Impression 1. ESRD 2. anemia 3. CAD 4. r/o chf 5. hx etoh abuse 6. active smoker 7. non compliance 8. HTN Plan - HD today - vascular eval - can give lasix on non HD days - discussed fluid intake and renal diet - follow ct results - discussed with medical team - will follow
[2018-11-10] MEDS: ATORVASTATIN CA 80 MG TABLET (FP) PO SCH (21:23)
[2018-11-10] MEDS: ZOLPIDEM TARTRATE 5 MG TABLET PO PRN (21:26)
[2018-11-11] MEDS: hydrALAZINE HCL 25 MG TABLET (FP) PO SCH ×2 (05:09→13:31)
[2018-11-11] MEDS: HEPARIN NA (PORCINE) 5,000 UNITS/ML 1ML VIAL SQ SCH ×2 (05:09→13:30)
[2018-11-11] MEDS: EPOETIN ALFA 2,000 UNIT/1 ML VIAL IVPUSH ONE (07:37)
[2018-11-11] MEDS ORDERED: FUROSEMIDE 40 MG TABLET (FP) PO ONE (08:45)
[2018-11-11 09:02] LABS: BASO % 0.7 % (0-2.0); EOS % 3.4 % (0-4.5); HEMATOCRIT 35.4 % (35.4-49); HEMOGLOBIN 11.4 GM/dL (11.7-16.9); LYMPH % 15.7 % (8-40); MCH 31.5 pg (25.7-33.7); MCHC 32.1 g/dl (32.0-35.9); MEAN PLT VOLUME 8.9 fl (7.5-11.1); MONO % 9.7 % (3.8-10.2); NEUT % 70.5 % (42.8-82.8); PLATELET COUNT 85 K/MM3 (134-434); RBC 3.61 M/mm3 (4.00-5.60); RDW 16.7 % (11.9-15.9); WHITE BLOOD COUNT 8.6 K/mm3 (4.0-10.0)
[2018-11-11] MEDS: CALCIUM (OYSTER SHELL) 500 MG TABLET (FP) PO SCH (09:22)
[2018-11-11] MEDS: SEVELAMER CARBONATE 800 MG TAB (FP) PO SCH ×2 (09:22→13:31)
[2018-11-11] MEDS: TAMSULOSIN HCL 0.4 MG CAP PO SCH (09:22)
[2018-11-11] MEDS: ASPIRIN COATED 81 MG TABLET.EC PO SCH (09:22)
[2018-11-11] MEDS: PANTOPRAZOLE 40 MG TABLET (FP) PO SCH (09:22)
[2018-11-11] MEDS: CLOPIDOGREL BISULFATE 75 MG TABLET (FP) PO SCH (09:22)
[2018-11-11] MEDS: BUDESONIDE/FORMETEROL FUMARATE 80/4.5 mcg INHALER IH SCH (09:24)
[2018-11-11] MEDS: FINASTERIDE 5 MG TABLET (FP) PO SCH (09:24)
[2018-11-11 09:46] LABS: ANION GAP 12 MMOL/L (8-16); BLOOD UREA NITROGEN 35 mg/dL (7-18); CALCIUM 8.5 mg/dL (8.5-10.1); CHLORIDE 98 mmol/L (98-107); CO2 27 mmol/L (21-32); CREATININE 5.6 mg/dL (0.55-1.3); GLUCOSE,RANDOM 89 mg/dL (74-106); POTASSIUM 4.4 mmol/L (3.5-5.1); SODIUM 137 mmol/L (136-145)
--- NOTE | 2018-11-11 12:11 | CONSULT ---
Consult Consult Specialty:: Vascular Reason for Consultation:: Leg pain - History of Present Illness History of Present Illness: 78 yo man, hx as charted, c/o pain in both ankles mostly, pain present even at rest but wore with standing or walking. He sustained light trauma to right ankle in the recent past. On exam both ankles and fet are edematous. Both ankles mildly tender to manipulation. On the right side there is a healing laceration of the lateral ankle, no sign of active infection but the area is tender. No foot ulcers, no cyanosis or tissue compromise. He has normal femoral, popliteal and DP pulses in both legs. Abdomen is soft, no AAA felt. Left arm has a [facility] AVF which is functioning well. CTA results noted. Discussed with cynthia Aviles f/u as outpt. - Past Medical History [employer]: No: Alzheimer's, CVA, Dementia, Migraine, Multiple Sclerosis, Peripheral Neuropathy, Parkinson's, Seizure, Syncope, TIA, Vertigo, Other Cardio/Vascular: Yes: CAD, HTN, Hyperlipdemia. No: AFIB, Aneurysm, Aortic Insufficiency, Aortic Stenosis, CHF, Deep Vein Thrombosis, WI, Mitral Insufficiency, Mitral Stenosis, Murmur, Pulmonary Hypertension, Other Pulmonary: No: Asthma, Bronchitis, Cancer, COPD, O2 Dependent, Pneumonia, Previously Intubated, Pulmonary Embolus, Pulmonary Fibrosis, Sleep Apnea, Other Gastrointestinal: Yes: GERD. No: Ascites, Cancer, Constipation, Crohn's Disease , Diverticulitis, Diverticulosis, Esophageal Varices, Gastritis, GI Bleed, Hemorrhoids, Hiatal Hernia, Inflamatory Bowel Disease, Irritable Bowel Disease, Pancreatitis, Peptic Ulcer Disease, Ulcerative Colitis, Other Hepatobiliary: No: Cirrhosis, Cholelithiasis, Cholecystitis, Choledocholithiasis , Hepatitis A, Hepatitis B, Hepatitis C, Other Renal/: Yes: Renal Failure, Hemodialysis (M/W/F) Heme/Onc: Yes: Anemia Infectious Disease: No: AIDS, C-Diff, Herpes Zoster, HIV, MRSA, STD's, Tuberculosis, VREF, Other Psych: No: Addictions, Anxiety, Bipolar, Depression, Panic, Psychosis, Schizophrenia, Other Musculoskeletal: No: Bursitis, Chronic low back pain, Hemiparesis, Hemiplegia, Osteoarthritis, Paraplegia, Other Rheumatology: No: Fibromyalgia, Gout, Lupus, Rheumatoid Arthritis, Sarcoidosis, Vasculitis, Other ENT: Yes: Allergic Rhinitis, Sinusitis, Other Endocrine: No: [place]'s Disease, [place]'s Disease, Diabetes Insipidus, Diabetes Mellitus, Hyperparathyroidism, Hyperthyroidism, Hypothyroidism, Osteopenia, SIADH, Other - Past Surgical History Past Surgical History: Yes: CABG (2 years ago ) - Smoking History Smoking history: Never smoked Have you smoked in the past 12 months: No Aproximately how many cigarettes per day: 5 - Social History ADL: Independent History of Recent Travel: No Home Medications - Allergies Allergies/Adverse Reactions: Allergies Allergy/AdvReac Type Severity Reaction Status Date / Time No Known Allergies Allergy Verified 09/25/18 00:12 - Home Medications Home Medications: Ambulatory Orders Calcium (Oyster Shell) [Os-Reuben 500MG -] 500 mg PO BID #60 tablet 03/22/16 Albuterol Sulfate Inhaler - [Ventolin HFA Inhaler -] 2 puff IH Q4H PRN #2 inhaler 06/06/18 Aspirin Coated [Ecotrin -] 81 mg PO DAILY #30 tablet.ec 06/06/18 Atorvastatin Ca [Lipitor] 80 mg PO HS 11/08/18 Clopidogrel Bisulfate [Plavix] 75 mg PO DAILY 11/08/18 Finasteride 5 mg PO DAILY 11/08/18 Fluticasone/Salmeterol [Advair Hfa 230-21 Mcg Inhaler] 1 inh PO BID 11/08/18 Hydralazine HCl 25 mg PO TID 11/08/18 Metoprolol Succinate [Toprol Xl] 50 mg PO DAILY 11/08/18 Pantoprazole Sodium [Protonix] 40 mg PO DAILY 11/08/18 Sevelamer Carbonate 800 mg PO DAILY 11/08/18 Tamsulosin HCl [Flomax] 0.4 mg PO DAILY 11/08/18 Furosemide [Lasix] 40 mg PO DAILY #30 tablet 11/10/18 Physical Exam Vital Signs: Vital Signs Temperature 98.4 F 11/11/18 10:00 Pulse Rate 68 11/11/18 10:00 Respiratory Rate 18 11/11/18 10:00 Blood Pressure 159/71 11/11/18 10:00 O2 Sat by Pulse Oximetry (%) 96 11/10/18 21:00 Labs: CBC, BMP 11/11/18 08:34 11/11/18 08:34
--- NOTE | 2018-11-11 12:12 | PN ---
Progress Note (short form) - Note Progress Note: Subjective: no fever or chills . no abd pain , no SOB . LE edema improved Objective: Vital Signs: Last Vital Signs Temp Pulse Resp BP Pulse Ox 98.4 F 68 18 159/71 96 11/11/18 10:00 11/11/18 10:00 11/11/18 10:00 11/11/18 10:00 11/10/18 21:00 Laboratory Results - last 24 hr 11/09/18 11/11/18 11/11/18 10:20 08:34 08:34 WBC 8.6 RBC 3.61 L Hgb 11.4 L Hct 35.4 MCV 98.0 H MCH 31.5 MCHC 32.1 RDW 16.7 H Plt Count 85 L MPV 8.9 Absolute Neuts (auto) 6.1 Neutrophils % 70.5 Lymphocytes % 15.7 D Monocytes % 9.7 Eosinophils % 3.4 Basophils % 0.7 Nucleated RBC % 0 Sodium 137 Potassium 4.4 Chloride 98 Carbon Dioxide 27 Anion Gap 12 BUN 35 H Creatinine 5.6 H Creat Clearance w eGFR 9.95 Random Glucose 89 Calcium 8.5 Hep C Ab Diagnostic <0.1 Physical Exam: NAD, AAox3. HEENT: MMM Cv: RRR Lungs: CTAB Abd: soft ,TTP in all quadrants. no rebound tenderness or guarding. NL BS Ext : b/l Leg edema improved again today . skin canal tender . DP 2+ b/l ASSESSMENT AND PLAN: 78 y/o man h/o CAD, s/p CABG, stents, ESRD MWF, HTN, HLP, diastolic heart failure , and other medical problems who presented with LE edema x 1-2 weeks. he was found to be volume overloaded 1- Volume overload: due to heart failure and ESRD. - s/p HD x 2 this admission . -start lasix on non HD days . give dose today - echo reviewed. - cont BB 2- ESRD: - cont sevelamir - Hd as per out pt schedule 3- PVD: final read of CT scan noted. patient was seen by vascular surgeron. no acute intervention is needed. and patient to follow with Dr. phillip myers. ( seen by Dr. Medina ) r - cont ASa , plavix and statin - has palpable DP bilaterally - pt is aware of need to follow 4- Elevated trop: No acute ischemic EKG changes. due to renal disease - cont Asa and plavix, BB and statin 5- Abd pain: Ct reviewed. mild splenomegaly. to follow as out pt with PCP for further imaging an dwork up. patient understands this cont PPI as out pt Dispo DC home. pt is walking in hallway with no problem Visit type - Emergency Visit Emergency Visit: Yes ED Registration Date: 11/08/18 Care time: The patient presented to the Emergency Department on the above date and was hospitalized for further evaluation of their emergent condition. - New Patient This patient is new to me today: No - Critical Care Critical Care patient: No
--- NOTE | 2018-11-11 12:47 | PN ---
Progress Note, Physician Chief Complaint: no complaints being dcd today. History of Present Illness: 8 year old male with a history of ESRD on HD, known CAD CABG 03/2017, HTN, HLD, Smoker, and known CHF. He presents now with a 2 week history of leg swelling and JAIMES. Occasional epigastric pain, denies chest pain. Last Nuclear Stress Test 06/05/18 EF 52%, normal perfusion of myocardium. Echo 11/10/18 normal EF mild MR/TR - Current Medication List Current Medications: Active Medications Acetaminophen (Tylenol -) 650 mg PO Q6H PRN PRN Reason: Fever Or Pain Last Admin: 11/10/18 19:22 Dose: 650 mg Albuterol Sulfate (Ventolin 0.083% Nebulizer Soln -) 1 amp NEB Q4H PRN PRN Reason: SHORT OF BREATH/WHEEZING Last Admin: 11/10/18 19:22 Dose: 1 amp Albuterol Sulfate (Ventolin Hfa Inhaler -) 2 puff IH Q4H PRN PRN Reason: SHORT OF BREATH/WHEEZING Aspirin (Ecotrin -) 81 mg PO DAILY [facility] Last Admin: 11/11/18 09:22 Dose: 81 mg Atorvastatin Calcium (Lipitor -) 80 mg PO HS [facility] Last Admin: 11/10/18 21:23 Dose: 80 mg Budesonide/Formoterol Fumarate (Symbicort 80/4.5mcg -) 2 puff IH BID [facility] Last Admin: 11/11/18 09:24 Dose: 2 puff Calcium Carbonate (Os-Reuben 500mg -) 500 mg PO BID [facility] Last Admin: 11/11/18 09:22 Dose: 500 mg Clopidogrel Bisulfate (Plavix -) 75 mg PO DAILY [facility] Last Admin: 11/11/18 09:22 Dose: 75 mg Finasteride (Proscar -) 5 mg PO DAILY [facility] Last Admin: 11/11/18 09:24 Dose: 5 mg Heparin Sodium (Porcine) (Heparin -) 5,000 unit SQ TID [facility] Last Admin: 11/11/18 05:09 Dose: 5,000 unit Hydralazine HCl (Apresoline -) 25 mg PO TID [facility] Last Admin: 11/11/18 05:09 Dose: 25 mg Metoprolol Succinate (Toprol Xl -) 50 mg PO DAILY [facility] Last Admin: 01/01/19 09:22 Dose: 50 mg Pantoprazole Sodium (Protonix -) 40 mg PO DAILY [facility] Last Admin: 11/11/18 09:22 Dose: 40 mg Sevelamer Carbonate (Renvela -) 800 mg PO TIDCM [facility] Last Admin: 11/11/18 09:22 Dose: 800 mg Tamsulosin HCl (Flomax -) 0.4 mg PO DAILY [facility] Last Admin: 11/11/18 09:22 Dose: 0.4 mg Zolpidem Tartrate (Ambien -) 5 mg PO HS PRN PRN Reason: INSOMNIA Last Admin: 11/10/18 21:26 Dose: 5 mg - Objective Vital Signs: Vital Signs Temperature 98.4 F 11/11/18 10:00 Pulse Rate 68 11/11/18 10:00 Respiratory Rate 18 11/11/18 10:00 Blood Pressure 159/71 11/11/18 10:00 O2 Sat by Pulse Oximetry (%) 94 L 11/11/18 10:00 Constitutional: Yes: No Distress, Anxious Eyes: Yes: Conjunctiva Clear, EOM Intact HENT: Yes: Normocephalic Neck: Yes: Trachea Midline Cardiovascular: Yes: Regular Rate and Rhythm Respiratory: Yes: CTA Bilaterally Gastrointestinal: Yes: Normal Bowel Sounds Extremities: Yes: WNL Edema: Yes Edema: LLE: Trace, RLE: Trace Peripheral Pulses WNL: Yes Labs: CBC, BMP 11/11/18 08:34 11/11/18 08:34 INR, PTT INR 0.97 (0.83-1.09) 11/07/18 21:59 Assessment/Plan 8 year old male with a history of ESRD on HD, known CAD CABG 03/2017, HTN, HLD, Smoker, and known CHF. He presents now with a 2 week history of leg swelling and JAIMES. Occasional epigastric pain, denies chest pain. Last Nuclear Stress Test 06/05/18 EF 52%, normal perfusion of myocardium. 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
--- NOTE | 2018-11-11 13:27 | PN ---
Progress Note, Physician History of Present Illness: Pt seen and examined at bedside. He is awake and alert. He is eager to go home. - Current Medication List Current Medications: Active Medications Acetaminophen (Tylenol -) 650 mg PO Q6H PRN PRN Reason: Fever Or Pain Last Admin: 11/10/18 19:22 Dose: 650 mg Albuterol Sulfate (Ventolin 0.083% Nebulizer Soln -) 1 amp NEB Q4H PRN PRN Reason: SHORT OF BREATH/WHEEZING Last Admin: 11/10/18 19:22 Dose: 1 amp Albuterol Sulfate (Ventolin Hfa Inhaler -) 2 puff IH Q4H PRN PRN Reason: SHORT OF BREATH/WHEEZING Aspirin (Ecotrin -) 81 mg PO DAILY [facility] Last Admin: 11/11/18 09:22 Dose: 81 mg Atorvastatin Calcium (Lipitor -) 80 mg PO HS [facility] Last Admin: 11/10/18 21:23 Dose: 80 mg Budesonide/Formoterol Fumarate (Symbicort 80/4.5mcg -) 2 puff IH BID [facility] Last Admin: 11/11/18 09:24 Dose: 2 puff Calcium Carbonate (Os-Reuben 500mg -) 500 mg PO BID [facility] Last Admin: 11/11/18 09:22 Dose: 500 mg Clopidogrel Bisulfate (Plavix -) 75 mg PO DAILY [facility] Last Admin: 11/11/18 09:22 Dose: 75 mg Finasteride (Proscar -) 5 mg PO DAILY [facility] Last Admin: 11/11/18 09:24 Dose: 5 mg Heparin Sodium (Porcine) (Heparin -) 5,000 unit SQ TID [facility] Last Admin: 11/11/18 05:09 Dose: 5,000 unit Hydralazine HCl (Apresoline -) 25 mg PO TID [facility] Last Admin: 11/11/18 05:09 Dose: 25 mg Metoprolol Succinate (Toprol Xl -) 50 mg PO DAILY [facility] Last Admin: 11/11/18 09:22 Dose: 50 mg Pantoprazole Sodium (Protonix -) 40 mg PO DAILY [facility] Last Admin: 11/11/18 09:22 Dose: 40 mg Sevelamer Carbonate (Renvela -) 800 mg PO TIDCM [facility] Last Admin: 11/11/18 09:22 Dose: 800 mg Tamsulosin HCl (Flomax -) 0.4 mg PO DAILY [facility] Last Admin: 11/11/18 09:22 Dose: 0.4 mg Zolpidem Tartrate (Ambien -) 5 mg PO HS PRN PRN Reason: INSOMNIA Last Admin: 11/10/18 21:26 Dose: 5 mg - Objective Vital Signs: Vital Signs Temperature 98.4 F 11/11/18 10:00 Pulse Rate 68 11/11/18 10:00 Respiratory Rate 18 11/11/18 10:00 Blood Pressure 159/71 11/11/18 10:00 O2 Sat by Pulse Oximetry (%) 94 L 11/11/18 10:00 Constitutional: Yes: Calm Eyes: Yes: Conjunctiva Clear HENT: Yes: Atraumatic Cardiovascular: Yes: S1, S2 Respiratory: Yes: CTA Bilaterally Gastrointestinal: Yes: Soft Genitourinary: Yes: WNL Musculoskeletal: Yes: WNL Edema: Yes Edema: LLE: 1+, RLE: 1+ Neurological: Yes: Oriented Psychiatric: Yes: Oriented Labs: CBC, BMP 11/11/18 08:34 11/11/18 08:34 INR, PTT INR 0.97 (0.83-1.09) 11/07/18 21:59 Problem List - Problems (1) Leg edema Code(s): R60.0 - LOCALIZED EDEMA (2) CHF exacerbation Code(s): I50.9 - HEART FAILURE, UNSPECIFIED Qualifiers: Heart failure type: unspecified Qualified Code(s): I50.9 - Heart failure, unspecified (3) ESRD (end stage renal disease) Code(s): N18.6 - END STAGE RENAL DISEASE Assessment/Plan Current Medications Generic Name Dose Route Start Last Admin Trade Name Freq PRN Reason Stop Dose Admin Acetaminophen 650 mg 11/09/18 04:09 11/10/18 19:22 Tylenol - PO 650 mg Q6H PRN Administration Fever Or Pain Albuterol Sulfate 1 amp 11/08/18 10:07 11/10/18 19:22 Ventolin 0.083% Nebulizer Soln - NEB 1 amp Q4H PRN Administration SHORT OF BREATH/WHEEZING Albuterol Sulfate 2 puff 11/08/18 11:02 Ventolin Hfa Inhaler - IH Q4H PRN SHORT OF BREATH/WHEEZING Aspirin 81 mg 11/08/18 11:15 11/11/18 09:22 Ecotrin - PO 81 mg DAILY TL Administration Atorvastatin Calcium 80 mg 11/08/18 22:00 11/10/18 21:23 Lipitor - PO 80 mg HS TL Administration Budesonide/Formoterol Fumarate 2 puff 11/09/18 13:30 11/11/18 09:24 Symbicort 80/4.5mcg - IH 2 puff BID TL Administration Calcium Carbonate 500 mg 11/08/18 22:00 11/11/18 09:22 Os-Reuben 500mg - PO 500 mg BID TL Administration Clopidogrel Bisulfate 75 mg 11/08/18 11:30 11/11/18 09:22 Plavix - PO 75 mg DAILY TL Administration Finasteride 5 mg 11/09/18 10:00 11/11/18 09:24 Proscar - PO 5 mg DAILY TL Administration Heparin Sodium (Porcine) 5,000 unit 11/08/18 14:00 11/11/18 05:09 Heparin - SQ 5,000 unit TID TL Administration Hydralazine HCl 25 mg 11/08/18 14:00 11/11/18 05:09 Apresoline - PO 25 mg TID TL Administration Metoprolol Succinate 50 mg 11/08/18 11:30 11/11/18 09:22 Toprol Xl - PO 50 mg DAILY TL Administration Pantoprazole Sodium 40 mg 11/08/18 11:30 11/11/18 09:22 Protonix - PO 40 mg DAILY TL Administration Sevelamer Carbonate 800 mg 11/08/18 12:00 11/11/18 09:22 Renvela - PO 800 mg TIDCM TL Administration Tamsulosin HCl 0.4 mg 11/08/18 12:00 11/11/18 09:22 Flomax - PO 0.4 mg DAILY TL Administration Zolpidem Tartrate 5 mg 11/08/18 22:00 11/10/18 21:26 Ambien - PO 5 mg HS PRN Administration INSOMNIA Impression 1. ESRD 2. anemia 3. CAD 4. r/o chf 5. hx etoh abuse 6. active smoker 7. non compliance 8. HTN Plan - discussed with vascular, will get outpt follow up - pt has HD set up for tomorrow - discussed fluid intake and renal diet - discussed with medical team - can be discharged from renal standpoint - will follow
[2018-11-11 14:13] VITALS: BP 138/68; PULSE 70; TEMP 98.3
--- NOTE | 2018-11-12 09:52 | DS ---
Physical Exam: SUBJECTIVE: Patient seen and examined at bedside. No acute events overnight. OBJECTIVE: Vital Signs Period Temp Pulse Resp BP Sys/Aparicio Pulse Ox Last 24 Hr 98.3 F-98.4 F 68-70 18-18 138-159/68-71 94 PHYSICAL EXAM GENERAL: AAOx3 HEENT: AT/NC. EOMI. LUKE. dry mucus membranes LUNGS: wheeze+; crackles right lung base HEART: Regular rate and rhythm, normal S1 and S2 without murmur, rub or gallop. ABDOMEN: Soft, NT/ND; RUQ MUSCULOSKELETAL: Normal range of motion at all joints. No bony deformities or tenderness. No CVA tenderness. EXTREMITIES: edema, warm, tender, RLE fischer with healed scab small area of surrounding erythema; no open laceration /ulcers/wounds. Fistula seen on L arm , palpable thrill noted. NEUROLOGICAL: Cranial nerves II-XII intact. Normal speech. strength 5/5 throughout muscle groups; sensation intact; PSYCHIATRIC: Cooperative. Good eye contact. Appropriate mood and affect. SKIN: Warm, dry, normal turgor, no rashes or lesions noted, normal capillary refill. LABS HOSPITAL COURSE: Date of Admission:11/08/18 IMAGING: * CTA Lower extremity: continuous posterior tibial artery run off bilaterally. Heavy calcifications in R. RIGHT: Bifurcation is patent w/ patent deep FA. SFA revealed calcified plaque w/ mild to mod disease. Popliteal a is patent. Posterior tibial a heavily calcified. Some flow is suspected. LEFT: Common femoral artery bifurcation patent w/ patent femoral artery. Popliteal a is patent. All 3 vessels are patent w/ segmental occlusion of anterior tibial artery in mid-calf region. Peroneal and posterior tibial artery patent into ankle w/ posterior tibial artery continuous into lateral plantar vessels. * Nuclear Stress Test (06/05/18): EF 52%, normal perfusion of myocardium * Duplex of LE: Mild atherosclerotic disease w/o evidence of occlusions or HD significant stenoses. * Abd U/S: No acute pathology. 78M with a history of ESRD, dCHF, CAD, HTN, HLD who presents with two weeks of bilateral leg swelling and shortness of breath likely 2/2 acute CHF exacerbation /ESRD. Upon initial eval, pt was found to be in volume overload and given Lasix. Due to hx of ESRD, nephro was consulted. Upon nephro eval, pt had HD during hospital stay with improvement in leg swelling and recommendation to give Lasix dose on non-HD days. Additionally, further imaging was done to assess b/l LE vasculature. B/L femoral, popliteal, and DP pulses were normal. CTA of LE noted above and vasc surg was consulted. Upon vasc surg eval, pt was found to have no active vascular condition; no immediate intervention was needed however outpatient follow up was recommended. Additionally, labs showed elevated trops in setting of ESRD. Cardio was consulted and recommended ASA, Plavix, Statin, Toprol and Hydralazine. Stress test was done inpatient; pt found to have EF 52% with normal myocardial perfusion. After full cardiac work up, pt was given recommendation to follow up outpatient. During hospital stay, pt also complained of abd pain. CT was done that showed mild splenomegaly. Throughout duration of hospital stay, pt's symptoms improved. He was discharged home with Lasix and to follow up with his PCP, dye reel operator, vascular surgeon and superannuation clerk. Pt was also advised to get repeat CT imaging done for further evaluation of his splenomegaly. Date of Discharge: 11/12/18 Minutes to complete discharge: 40 Discharge Summary Reason For Visit: EDEMA OF LOWER EXTREMITY Condition: Improved - Instructions Diet, Activity, Other Instructions: You were seen in the hospital for complaints of leg swelling and shortness of breath. y ou were treated for heart failure, and given dialysis In the hospital, you were seen by a dye reel operator and found to have fluid overload. You underwent dialysis and were monitored in the hospital. Additionally, imaging of your legs was done that showed significant narrowing of your arteries. You were evaluated by the vascular surgeon and found to have no acute condition at this time, however you will need to follow up outpatient to avopid acute occlusion in your legs and ischemia ( gangrene ) . During your hospital stay your condition improved. You are being discharged home. MEDICATION RECOMMENDATIONS Please take the following medications: Lasix 40 mg by mouth once a day on the days you don't have dilaysis Please continue taking the rest of your medications as directed. CONSULT RECOMMENDATIONS Please follow up with your primary care physician, Dr. Hidalgo, within 1 week. Please also follow up with your dye reel operator, Dr. Mei, within 1 week. Please follow up with your vascular surgeon, Dr. Lockhart within 1 week. it is important follow with heart doctor ,. Dr. cuadra If you experience worsening shortness of breath, chest pain, difficulty breathing, persistent headaches/dizziness, nausea/vomiting, please proceed to your nearest emergency room immediately. You have enlarged spleen on Ct scan. this need to be followed and evaluated. please see your primary care doctor for this fro repeat imaging and further work up low salt diet , renal diet Referrals: Negro Hidalgo MD [Primary Care Provider] - 1 Week Seth Lockhart MD [Staff Physician] - 1 Week Andi Cuadra MD [Staff Physician] - 2 Weeks Nicole Mei MD [Staff Physician] - 1 Week Disposition: HOME - Home Medications Comprehensive Discharge Medication List: Ambulatory Orders Calcium (Oyster Shell) [Os-Reuben 500MG -] 500 mg PO BID #60 tablet 03/22/16 Albuterol Sulfate Inhaler - [Ventolin HFA Inhaler -] 2 puff IH Q4H PRN #2 inhaler 06/06/18 Aspirin Coated [Ecotrin -] 81 mg PO DAILY #30 tablet.ec 06/06/18 Atorvastatin Ca [Lipitor] 80 mg PO HS 11/08/18 Clopidogrel Bisulfate [Plavix] 75 mg PO DAILY 11/08/18 Finasteride 5 mg PO DAILY 11/08/18 Fluticasone/Salmeterol [Advair Hfa 230-21 Mcg Inhaler] 1 inh PO BID 11/08/18 Hydralazine HCl 25 mg PO TID 11/08/18 Metoprolol Succinate [Toprol Xl] 50 mg PO DAILY 11/08/18 Pantoprazole Sodium [Protonix] 40 mg PO DAILY 11/08/18 Sevelamer Carbonate 800 mg PO DAILY 11/08/18 Tamsulosin HCl [Flomax] 0.4 mg PO DAILY 11/08/18 Furosemide [Lasix] 40 mg PO Q48H #30 tablet 11/11/18 This patient is new to me today: No Emergency Visit: Yes ED Registration Date: 11/08/18 Care time: The patient presented to the Emergency Department on the above date and was hospitalized for further evaluation of their emergent condition. Critical Care patient: No - Discharge Referral Referred to [facility] Yes Physician Referral: Negro Eden MD ([facility])
[2018-11-13 03:14] LABS: HBSAG SCREEN Negative (Negative); HEP A AB, IGM Positive (Negative); HEP B CORE AB, TOT Positive (Negative)
== END 2018-11-11 14:28 | disposition home or self-care (01) | DRG 291 ==
LOC: JER 19:54 → JERBED 11-08 07:50 → UNDOADMOB 11-08 07:50 → INTOOBSV 11-08 07:50 → JERBED 11-08 10:11 → OBSVTOIN 11-08 12:17 → J5S 11-08 15:13
PROVIDERS: ADMIT Internal Medicine; ATTEND Internal Medicine
PROC: 5A1D70Z Performance of Urinary Filtration, Intermittent, Less than 6 Hours Per Day (ICD-10-PCS; principal; 2018-11-10)
DX: I13.2 Hypertensive heart and chronic kidney disease with heart failure and with stage 5 chronic kidney disease, or end stage renal disease (principal); N18.6 End stage renal disease; I50.31 Acute diastolic (congestive) heart failure; Z99.2 Dependence on renal dialysis; I25.10 Atherosclerotic heart disease of native coronary artery without angina pectoris; Z98.61 Coronary angioplasty status; Z95.1 Presence of aortocoronary bypass graft; E87.70 Fluid overload, unspecified; E78.5 Hyperlipidemia, unspecified; J44.9 Chronic obstructive pulmonary disease, unspecified
CPT/HCPCS: 36415; 71045-TC-FY; 73706-TC-RT; 74176-TC; 76705-TC; 80048; 80053; 82550; 82977; 83690; 83735; 83880; 84100; 84484; 85025; 85027; 85610; 86704; 86706; 86708; 86803; 87340; 93005; 93010; 93306-TC; 93925-TC; 93970-TC; 94640; 99283-25; G0378; J0885; J1644

== ENCOUNTER 2019-07-28 13:59 | Inpatient (IN) | payer OTHER ==
--- NOTE | 2019-07-28 14:03 | PDOC ---
History of Present Illness - General Chief Complaint: Shortness of Breath Stated Complaint: SOB History Source: Patient Exam Limitations: No Limitations - History of Present Illness Initial Comments: 07/28/19 14:05 78 year old male with a history of ESRD on HD (MWF; followed by Dr. Mei; last dialysis yesterday), CAD s/p quintuple bypass (2017) , decompensated CHF, and HLD presents to the emergency department with SOB with onset yesterday. Per the patient, he stated he was acutely SOB last night. Today, he became SOB when walking from the hallway to the registration at [facility] (the patient was a rapid response today). Denies the following: fevers, chills, nausea, vomiting, abdominal pain, dysuria, hematuria, diarrhea, and leg pain/swelling. Endorses left chest pressure that has been ongoing since last night. Allergies: NKDA Past History - Past Medical History Allergies/Adverse Reactions: Allergies Allergy/AdvReac Type Severity Reaction Status Date / Time No Known Allergies Allergy Verified 07/28/19 14:17 Home Medications: Ambulatory Orders Calcium (Oyster Shell) [Os-Reuben 500MG -] 500 mg PO BID #60 tablet 03/22/16 Albuterol Sulfate Inhaler - [Ventolin HFA Inhaler -] 2 puff IH Q4H PRN #2 inhaler 06/06/18 Aspirin Coated [Ecotrin -] 81 mg PO DAILY #30 tablet.ec 06/06/18 Atorvastatin Ca [Lipitor] 80 mg PO HS 11/08/18 Clopidogrel Bisulfate [Plavix] 75 mg PO DAILY 11/08/18 Finasteride 5 mg PO DAILY 11/08/18 Hydralazine HCl 25 mg PO TID 11/08/18 Metoprolol Succinate [Toprol Xl] 50 mg PO DAILY 11/08/18 Pantoprazole Sodium [Protonix] 40 mg PO DAILY 11/08/18 Sevelamer Carbonate 800 mg PO DAILY 11/08/18 Tamsulosin HCl [Flomax] 0.4 mg PO DAILY 11/08/18 Budesonide [Pulmicort 0.25 mg -] 1 neb PO BID 07/28/19 Calcitriol [Calcitriol -] 3 cap PO DAILY 07/28/19 Diphenhydramine [Benadryl Oral Solution -] 25 mg PO Q6H PRN 07/28/19 Docusate Sodium 200 mg PO HS 07/28/19 Furosemide [Lasix] 80 mg PO DAILY 07/28/19 Ipratropium/Albuterol Sulfate [Iprat-Albut 0.5-3(2.5) mg/3 ml] 3 ml IH Q6H PRN 07/28/19 Lidocaine/Prilocaine Cream [Emla -] 1 applic TP DAILY 07/28/19 Melatonin 5 mg PO HS 07/28/19 Polyethylene Glycol 3350 [Miralax (For Daily Use) -] 17 gm PO DAILY 07/28/19 Sennosides [Senna Lax] 8.6 mg PO HS 07/28/19 Tiotropium [place] [Spiriva] 1 inh PO DAILY 07/28/19 Anemia: No Asthma: No Cancer: No Cardiac Disorders: Yes (cad) CVA: No COPD: No CHF: No Dementia: No Diabetes: No Dialysis: Yes (lt arm fistula, m-w-f h.d) GI Disorders: No Disorders: No HTN: Yes Hypercholesterolemia: Yes Liver Disease: No Seizures: No Thyroid Disease: Yes (Dialysi:Sat-Sat-Sat) - Surgical History Abdominal Surgery: No Appendectomy: No Cardiac Surgery: Yes (quad bipass) Lung Surgery: No Neurologic Surgery: No Orthopedic Surgery: No - Immunization History Immunization Up to Date: No - Suicide/Smoking/Psychosocial Hx Smoking History: Never smoked Have you smoked in the past 12 months: No Number of Cigarettes Smoked Daily: 5 'Breaking Loose' booklet given: 01/27/14 Hx Alcohol Use: No Drug/Substance Use Hx: No Substance Use Type: None Review of Systems - Review of Systems Able to Perform ROS?: Yes Is the patient limited Maori proficient: No Constitutional: No: Chills, Diaphoresis, Fever, Night Sweats, Weakness HEENTM: No: Eye Pain, Ear Pain, Nose Pain, Throat Pain, Mouth Pain Respiratory: Yes: Cough, Shortness of Breath. No: Hemoptysis Cardiac (ROS): Yes: Chest Pain. No: Lightheadedness, Palpitations, Syncope ABD/GI: No: Constipated, Diarrhea, Nausea, Rectal Bleeding, Vomiting, Tarry Stools : No: Burning, Dysuria, Hematuria, Incontinence Musculoskeletal: No: Back Pain, Joint Pain, Neck Pain Integumentary: No: Bruising, Erythema, Rash Neurological: No: Headache, Numbness, Tingling, Tremors Psychiatric: No: Change in Appetite Endocrine: No: Unexplained Weight Gain Hematologic/Lymphatic: No: Anemia *Physical Exam - Physical Exam General Appearance: Yes: Nourished, Appropriately Dressed. No: Apparent Distress, Intoxicated HEENT: positive: EOMI, LUKE, Normal Voice, Symmetrical, Pharynx Normal ( dehydrated), Hearing Grossly Normal. negative: Pale Conjunctivae, Scleral Icterus (R), Scleral Icterus (L), Muffled/Hoarse voice, Pharyngeal Erythema, Tonsillar Exudate, Tonsillar Erythema, Nasal Congestion, Rhinorrhea, Sinus Tenderness, Excessive drooling Neck: positive: Trachea midline, Supple. negative: Tender, Lymphadenopathy (R) , Lymphadenopathy (L), Tender lateral, Tender midline Respiratory/Chest: positive: Decreased Breath Sounds, Crackles, Rhonchi, Wheezing. negative: Chest Tender, Lungs Clear, Normal Breath Sounds, Respiratory Distress, Accessory Muscle Use Cardiovascular: positive: Regular Rhythm, S1, S2, Tachycardia. negative: Systolic Murmur Gastrointestinal/Abdominal: positive: Normal Bowel Sounds, Flat, Soft. negative : Tender, Distended, Guarding, Rebound Lymphatic: negative: Adenopathy Musculoskeletal: positive: Normal Inspection. negative: CVA Tenderness, Vertebral Tenderness Extremity: positive: Normal Capillary Refill, Normal Inspection, Normal Range of Motion. negative: Tender Integumentary: positive: Normal Color, Dry, Warm Neurologic: positive: health evaluator II-XII NML intact, Fully Oriented, Alert, Normal Mood/ Affect, Normal Response, Motor Strength 5/5. negative: EOM Palsy, Facial Droop , Numbness ED Treatment Course - LABORATORY CBC & Chemistry Diagram: 07/28/19 15:10 07/28/19 15:10 Medical Decision Making - Medical Decision Making 78 year old male with a history of ESRD on HD (MWF; followed by Dr. Mei; last dialysis yesterday), CAD s/p quintuple bypass (2016) , decompensated CHF, and HLD presents to the emergency department with SOB with onset yesterday. Initial vitals: Initial Vital Signs Temp Pulse Resp BP Pulse Ox 97.9 F 120 H 22 H 169/95 100 07/28/19 14:00 07/28/19 14:00 07/28/19 14:00 07/28/19 14:00 07/28/19 14:00 Work up: ddx: CHF vs COPD vs ACS Patient was a rapid response in registration. the patient was quite SOB with ambulation. Likely having CHF exacerbation secondary to fluid overload. Per the patient he states they took "2 kilos" off yesterday. EKG: Ventricular rate: 101 bpm. Atrial flutter with variable AV block. QRS is 94 ms. QTc is 490 ms. Atrial flutter is new compared to previous EKGs. Laboratory Tests 07/28/19 07/28/19 07/28/19 15:10 15:10 15:10 WBC 4.8 RBC 3.33 L Hgb 10.5 L Hct 32.2 L MCV 96.7 H MCH 31.6 MCHC 32.7 RDW 18.4 H Plt Count 147 D MPV 8.7 Absolute Neuts (auto) 3.2 Neutrophils % 66.9 Lymphocytes % 18.9 D Monocytes % 10.6 H Eosinophils % 1.6 Basophils % 2.0 Nucleated RBC % 0 Sodium 138 Potassium 5.0 Chloride 101 Carbon Dioxide 30 Anion Gap 7 L BUN 33.3 H Creatinine 6.5 H Est GFR (CKD-EPI)AfAm 8.78 Est GFR (CKD-EPI)NonAf 7.57 Random Glucose 93 Calcium 9.7 Total Bilirubin 0.9 AST 36 ALT 21 Alkaline Phosphatase 143 H Creatine Kinase 87 Troponin I 0.17 H B-Natriuretic Peptide > 270987.0 H Total Protein 6.4 Albumin 3.7 Patient has elevated troponin of 0.17. BNP >171601 likely due to CHF history and on dialysis. I spoke to Dr. Mei who wishes to admit the patient for dialysis. Patient makes little urine therefore dialysis needed for removing fluid Patient was endorses to the inpatient team and accepted. Patient has been on bipap with improvement in respiratory work. Dispo: Admit *DC/Admit/Observation/Transfer Diagnosis at time of Disposition: ESRD (end stage renal disease), CHF exacerbation - Referrals - Patient Instructions - Post Discharge Activity
[2019-07-28 15:21] LABS: EOS % 1.6 % (0-4.5); HEMATOCRIT 32.2 % (35.4-49); HEMOGLOBIN 10.5 GM/dL (11.7-16.9); LYMPH % 18.9 % (8-40); MCH 31.6 pg (25.7-33.7); MCHC 32.7 g/dl (32.0-35.9); MEAN CELL VOLUME 96.7 fl (80-96); MEAN PLT VOLUME 8.7 fl (7.5-11.1); MONO % 10.6 % (3.8-10.2); NEUT % 66.9 % (42.8-82.8); PLATELET COUNT 147 K/MM3 (134-434); RBC 3.33 M/mm3 (4.00-5.60); RDW 18.4 % (11.9-15.9); WHITE BLOOD COUNT 4.8 K/mm3 (4.0-10.0)
--- NOTE | 2019-07-28 15:53 | PDOC ---
Attending Attestation - Resident Resident Name: HaleyDeven - ED Attending Attestation I have performed the following: I have examined & evaluated the patient, The case was reviewed & discussed with the resident, I agree w/resident's findings & plan, Exceptions are as noted - HPI HPI: 08/02/19 21:22 78 years old end-stage renal disease on hemodialysis Saturday CAD status post bypass CHF hyperlipidemia presents to the ED with shortness of breath and dyspnea on exertion - Physicial Exam PE: 08/02/19 21:23 Vitals: Triage Vital signs reviewed General Appearance: no acute distress, well nourished well developed, Head: Atraumatic, Cardiac: Regular rate and rhythym, no murmurs, no rubs, no gallops, Lungs: Rales bilaterally Abdomen: Soft, non distended, normal bowel sounds, non tender to palpation Extremities: Full range of motion to all extremities, no cyanosis, clubbing, or edema Skin: Warm and dry, no rashes or lesions, no rash, no petechiae Psych: normal mood, normal affect - Medical Decision Making 08/02/19 21:28 End stage renal disease on dialysis presents with acutely decompensated CHF. Patient requires inpatient admission given acute cardiac ischemia associated with heart failure Patient will require dialysis for diuresis as he makes little to no urine
--- NOTE | 2019-07-28 16:28 | EKG ---
Test Reason : Blood Pressure : / mmHG Vent. Rate : 101 BPM Atrial Rate : 242 BPM P-R Int : 000 ms QRS Dur : 094 ms QT Int : 378 ms P-R-T Axes : 000 080 079 degrees QTc Int : 490 ms ATRIAL FLUTTER WITH VARIABLE A-V BLOCK INDETERMINATE AXIS POSSIBLE ANTERIOR INFARCT (CITED ON OR BEFORE 25-SEP-2018) ABNORMAL ECG WHEN COMPARED WITH ECG OF 08-NOV-2018 02:06, ATRIAL FLUTTER HAS REPLACED SINUS RHYTHM VENT. RATE HAS INCREASED BY 45 BPM T WAVE AMPLITUDE HAS DECREASED IN LATERAL LEADS Confirmed by Hansel Mckeon ([id number]) on 07/28/2019 4:28:18 PM Referred By: Confirmed By:Hansel Mckeon
[2019-07-28 16:48] LABS: ALBUMIN 3.7 g/dl (3.4-5.0); ALK PHOS 143 U/L (45-117); ANION GAP 7 MMOL/L (8-16); BILIRUBIN,TOTAL 0.9 mg/dL (0.2-1); BLOOD UREA NITROGEN 33.3 mg/dL (7-18); CALCIUM 9.7 mg/dL (8.5-10.1); CHLORIDE 101 mmol/L (98-107); CO2 30 mmol/L (21-32); CREATININE 6.5 mg/dL (0.55-1.3); GLUCOSE,RANDOM 93 mg/dL (74-106); N-TERMINAL BNP > 175000.0 pg/ml (5-450); SGOT/AST 36 U/L (15-37); SGPT/ALT 21 U/L (13-61); SODIUM 138 mmol/L (136-145); TOT PROT 6.4 g/dl (6.4-8.2)
--- NOTE | 2019-07-28 17:29 | CONSULT ---
Consult Consult Specialty:: Nephrology Reason for Consultation:: ESRD - History of Present Illness Chief Complaint: shortness of breath History of Present Illness: Pt is a 78 year old male with pmhx of esrd MWF, cad, chf, and hd who presents with shortness of breath. He was found to be fluid overloaded and I was called to evaluate him. He last went to HD yesterday. He is not compliant with fluids or diet. He denies chest pain or palpitations. He denies palpitations. He says he is hungry. He does not want the bipap. - History Source History Provided By: Patient, Medical Record - Past Medical History Cardio/Vascular: Yes: CAD, HTN, Hyperlipdemia Gastrointestinal: Yes: GERD Renal/: Yes: Renal Failure, Hemodialysis (M/W/F) ENT: Yes: Allergic Rhinitis, Sinusitis, Other - Past Surgical History Past Surgical History: Yes: CABG (2 years ago ) - Alcohol/Substance Use Hx Alcohol Use: No - Smoking History Smoking history: Never smoked Have you smoked in the past 12 months: No Aproximately how many cigarettes per day: 5 - Social History ADL: Independent History of Recent Travel: No Home Medications - Allergies Allergies/Adverse Reactions: Allergies Allergy/AdvReac Type Severity Reaction Status Date / Time No Known Allergies Allergy Verified 07/28/19 14:17 - Home Medications Home Medications: Ambulatory Orders Calcium (Oyster Shell) [Os-Reuben 500MG -] 500 mg PO BID #60 tablet 03/22/16 Albuterol Sulfate Inhaler - [Ventolin HFA Inhaler -] 2 puff IH Q4H PRN #2 inhaler 06/06/18 Aspirin Coated [Ecotrin -] 81 mg PO DAILY #30 tablet.ec 06/06/18 Atorvastatin Ca [Lipitor] 80 mg PO HS 11/08/18 Clopidogrel Bisulfate [Plavix] 75 mg PO DAILY 11/08/18 Finasteride 5 mg PO DAILY 11/08/18 Fluticasone/Salmeterol [Advair Hfa 230-21 Mcg Inhaler] 1 inh PO BID 11/08/18 Hydralazine HCl 25 mg PO TID 11/08/18 Metoprolol Succinate [Toprol Xl] 50 mg PO DAILY 11/08/18 Pantoprazole Sodium [Protonix] 40 mg PO DAILY 11/08/18 Sevelamer Carbonate 800 mg PO DAILY 11/08/18 Tamsulosin HCl [Flomax] 0.4 mg PO DAILY 11/08/18 Furosemide [Lasix] 40 mg PO Q48H #30 tablet 11/11/18 Family Disease History - Family Disease History Family History: Denies Review of Systems - Review of Systems Constitutional: reports: Malaise. denies: Chills, Fever Eyes: reports: No Symptoms HENT: reports: No Symptoms Neck: reports: No Symptoms Cardiovascular: reports: Edema, Shortness of Breath Respiratory: reports: SOB, SOB on Exertion Gastrointestinal: reports: No Symptoms Genitourinary: reports: No Symptoms Musculoskeletal: reports: No Symptoms Integumentary: reports: No Symptoms Neurological: reports: No Symptoms Endocrine: reports: No Symptoms Hematology/Lymphatic: reports: No Symptoms Psychiatric: reports: No Symptoms Physical Exam Vital Signs: Vital Signs Temperature 97.9 F 07/28/19 14:00 Pulse Rate 105 H 07/28/19 14:53 Respiratory Rate 26 H 07/28/19 16:25 Blood Pressure 168/98 07/28/19 14:53 O2 Sat by Pulse Oximetry (%) 100 07/28/19 16:25 Constitutional: Yes: Calm Eyes: Yes: Conjunctiva Clear Cardiovascular: Yes: S1, S2 Respiratory: Yes: On Nasal O2, Rhonchi Gastrointestinal: Yes: Soft Renal/: Yes: WNL Musculoskeletal: Yes: WNL Extremities: Yes: WNL Edema: Yes Edema: LLE: 1+, RLE: 1+ Neurological: Yes: Oriented Psychiatric: Yes: Oriented Labs: CBC, BMP 07/28/19 15:10 07/28/19 15:10 Imaging - Results Chest X-ray: Report Reviewed Problem List - Problems (1) Leg edema Code(s): R60.0 - LOCALIZED EDEMA (2) ESRD (end stage renal disease) Code(s): N18.6 - END STAGE RENAL DISEASE (3) Peripheral vascular disease Code(s): I73.9 - PERIPHERAL VASCULAR DISEASE, UNSPECIFIED (4) CHF exacerbation Code(s): I50.9 - HEART FAILURE, UNSPECIFIED Qualifiers: Heart failure type: unspecified Qualified Code(s): I50.9 - Heart failure, unspecified Assessment/Plan Impression 1. ESRD 2. anemia 3. CAD 4. chf 5. hx etoh abuse 6. active smoker 7. non compliance 8. HTN 9. fluid overload Plan - will arrange for HD today - pt waiting for tele bed - monitor pulse ox - discussed with er team - bipap as needed - will follow
[2019-07-28] MEDS ORDERED: SODIUM CHLORIDE 250 ML IV PRN (17:32)
[2019-07-28] MEDS ORDERED: LIDOCAINE 2.5%/PRILOCAINE 2.5% (5 Gram/TUBE) TP ONE (17:33)
--- NOTE | 2019-07-28 18:10 | PN ---
Teaching Attending Note Name of Resident: Jose Alejandro Poe ATTENDING PHYSICIAN STATEMENT I saw and evaluated the patient. I reviewed the resident's note and discussed the case with the resident. I agree with the resident's findings and plan as documented with exceptions below. SUBJECTIVE: 78 yom with PMHx of ESRD on HD (MWF), CAD s/p CABG 2017,s/p PCI (x4?), HTN, HLD , ETOH abuse, COPD (prior heavy smoker), comes with shortness of breath. Patient was dialyzed yesterday with 2.4 kg fluid removal. Today came for PFTs, when had worsening shortness of breath, reports felt 'couldn't breath', rapid response was called and patient was brought to the ED. He report progressive shortness of breath over a 'long time'. Low grade fever 100.4 2 weeks ago, none since. NO reports sick contacts, change in sputum or cough symptoms. Long standing exertional dyspnea with palpitations and dizziness. Does not watch salt in his diet. No new orthopnea, PND, leg swelling, antibiotics. OBJECTIVE: Vital Signs Period Temp Pulse Resp BP Sys/Aparicio Pulse Ox Last 24 Hr 97.9 F-98.9 F 105-120 18-26 157-169/87-98 99-100 Intake & Output 07/25/19 07/26/19 07/27/19 07/28/19 23:59 23:59 23:59 23:59 Weight 150 lb GENERAL: Awake, alert, and fully oriented, use of accessory muscles of respiration HEAD: Normal with no signs of trauma. EYES: Pupils equal, round and reactive to light, extraocular movements intact, sclera anicteric, conjunctiva clear. No lid lag. EARS, NOSE, THROAT: Ears normal, nares patent, oropharynx clear without exudates. Moist mucous membranes. NECK: Normal range of motion, soft, supple, neck vein distension LUNGS: basilar rales, decreased air entry all over, no wheezing appreciated HEART: S1S2 irregular, tachycardia ABDOMEN: Soft, nontender, not distended, normoactive bowel sounds, no guarding, no rebound, no masses. MUSCULOSKELETAL: Normal range of motion at all joints. No bony deformities or tenderness. No CVA tenderness. UPPER EXTREMITIES: 2+ pulses, warm, well-perfused. No cyanosis. No clubbing. No peripheral edema. LOWER EXTREMITIES: trace LE edema, small soft swelling over mid left fischer, no overlying erythema or discharge noted NEUROLOGICAL: AAOx3, facial symmetry, speech normal, tongue midline, moves all extremities freely, further exam limited given his respiratory distress PSYCHIATRIC: Cooperative. Good eye contact. Appropriate mood and affect. SKIN: Warm, dry, normal turgor, no rashes or lesions noted, normal capillary refill. Home Medications Medication Instructions Recorded Calcium (Oyster Shell) [Os-Reuben 500 mg PO BID #60 tablet 03/22/16 500MG -] Albuterol Sulfate Inhaler - 2 puff IH Q4H PRN #2 inhaler 06/06/18 [Ventolin HFA Inhaler -] Aspirin Coated [Ecotrin -] 81 mg PO DAILY #30 tablet.ec 06/06/18 Atorvastatin Ca [Lipitor] 80 mg PO HS 11/08/18 Clopidogrel Bisulfate [Plavix] 75 mg PO DAILY 11/08/18 Finasteride 5 mg PO DAILY 11/08/18 Fluticasone/Salmeterol [Advair Hfa 1 inh PO BID 11/08/18 230-21 Mcg Inhaler] Hydralazine HCl 25 mg PO TID 11/08/18 Metoprolol Succinate [Toprol Xl] 50 mg PO DAILY 11/08/18 Pantoprazole Sodium [Protonix] 40 mg PO DAILY 11/08/18 Sevelamer Carbonate 800 mg PO DAILY 11/08/18 Tamsulosin HCl [Flomax] 0.4 mg PO DAILY 11/08/18 Furosemide [Lasix] 40 mg PO Q48H #30 tablet 11/11/18 Active Medications Heparin Sodium (Porcine) (Heparin -) 5,000 unit SQ Q8H-IV TL Sodium Chloride (Normal Saline -) 250 mls @ 3,000 mls/hr IV PRN PRN PRN Reason: Hypotension during Dialysis Stop: 07/29/19 17:32 Laboratory Results - last 24 hr 07/28/19 07/28/19 07/28/19 15:10 15:10 15:10 WBC 4.8 RBC 3.33 L Hgb 10.5 L Hct 32.2 L MCV 96.7 H MCH 31.6 MCHC 32.7 RDW 18.4 H Plt Count 147 D MPV 8.7 Absolute Neuts (auto) 3.2 Neutrophils % 66.9 Lymphocytes % 18.9 D Monocytes % 10.6 H Eosinophils % 1.6 Basophils % 2.0 Nucleated RBC % 0 Sodium 138 Potassium 5.0 Chloride 101 Carbon Dioxide 30 Anion Gap 7 L BUN 33.3 H Creatinine 6.5 H Est GFR (CKD-EPI)AfAm 8.78 Est GFR (CKD-EPI)NonAf 7.57 Random Glucose 93 Calcium 9.7 Total Bilirubin 0.9 AST 36 ALT 21 Alkaline Phosphatase 143 H Creatine Kinase 87 Troponin I 0.17 H B-Natriuretic Peptide > 861130.0 H Total Protein 6.4 Albumin 3.7 CXR results and images reviewed EKG Atrial flutter with variable block ASSESSMENT AND PLAN: 78 yom with PMHx of ESRD on HD (MW), CAD s/p CABG 2017,s/p PCI (x4?), HTN, HLD , ETOH abuse, COPD (prior heavy smoker) admitted with dyspnea -Acute hypoxic respiratory failure -Acute on chronic systolic+/- diastolic heart failure exacerbation, ?in the setting dietary non compliance vs tachycardia -Acute COPD exacerbation, ?recent URI like illness -Atrial flutter with variable block, ?New onset -Elevated troponin, suspect demand mediated type II NSTEMI rather than ACS, -ESRD on HD (MW) -CAD s/p CABG/PCI (?X4) -HTN -HLD -h/o ETOH abuse -Prior heavy smoker Plan: Plan for HD with fluid removal today, discussed with Dr. Mei. Lasix 80 mg IV x 1. Strict I/Os and daily weights, Counseled on dietary compliance. IV solumedrol, standing and prn nebs, Xopenex given tachycardia. Pulmonary Input. NIPPV prn. ?New onset atrial flutter. Heparin drip, check 2D echo, cardiology input. trend trop, continue ASA/plavix. ?toprol XL not on current meds. Will need to confirm. Place on cardizem IV prn for now. hold amlodipine. DVTPPX heparin drip as above Dispo admit to inpatient telemetry. Discussed with patient and nephrology.
[2019-07-28] MEDS ORDERED: ALBUTEROL SO4 8 GM HFA INHALER IH PRN (18:17)
[2019-07-28] MEDS ORDERED: ALBUTEROL SO4 2.5/IPRATROPIUM 0.5 INH SOL 3 ML VIAL.NEB. NEB PRN (18:17)
[2019-07-28] MEDS ORDERED: diphenhydrAMINE HCL 12.5 MG/5 ML UNIT-DOSE CUPS PO PRN (18:17)
[2019-07-28] MEDS ORDERED: LEVALBUTEROL HCL 0.31 MG/3 ML VIAL.NEB IH PRN (18:25)
[2019-07-28] MEDS ORDERED: HEPARIN NA (PORCINE) 5,000 UNITS/ML 1ML VIAL IVPUSH PRN ×2 (18:27)
[2019-07-28] MEDS ORDERED: dilTIAZem HCL 50 MG/10 ML - 10 ML VIAL IVPUSH PRN ×2 (18:30→18:31)
[2019-07-28] MEDS ORDERED: HEPARIN INFUSION - 25,000 UNITS/500 ML INFUS.BAG IVPB SCH (18:30)
[2019-07-28] MEDS ORDERED: HEPARIN SOD,PORK IN 0.45% NACL 25,000 UNITS/500 ML INFUS.BAG IVPB SCH (18:30)
[2019-07-28] MEDS ORDERED: FUROSEMIDE 40 MG/4 ML INJECTABLE VIAL IVPUSH ONE (18:45)
--- NOTE | 2019-07-28 18:52 | HP ---
CHIEF COMPLAINT: sob PCP: Meek Esparza HISTORY OF PRESENT ILLNESS: Pt is a 78M PMH ESRD on HD ([facility]; followed by Dr. Mei; last dialysis yesterday), CAD s/p quintuple bypass (2016) , decompensated CHF, and HLD who presented to ED after episode of SOB in lobby. The patient had HD with Dr. Mei yest (incomplete session). He came to the hospital for routine PFTs and had a rapid response in the main lobby of the hospital. Pt states he became very short of breath and sat down. He states he does tend to become very short of breath in his daily activities such as climbing his apartment steps. ER course was notable for: (1) Pt in a flutter (2) type B trop leak (3) tachycardic, elevated BNP Recent Travel: Denies PAST MEDICAL HISTORY: ESRD on HD (MW; followed by Dr. Mei; last dialysis yesterday), CAD s/p quintuple bypass (2017) , decompensated CHF, and HLD PAST SURGICAL HISTORY: HD graft Social History: Smokin pack year Alcohol: denies Drugs: denies Family History: discussed, denies Allergies No Known Allergies Allergy (Verified 07/28/19 14:17) HOME MEDICATIONS: Home Medications Medication Instructions Recorded Calcium (Oyster Shell) [Os-Reuben 500 mg PO BID #60 tablet 03/22/16 500MG -] Albuterol Sulfate Inhaler - 2 puff IH Q4H PRN #2 inhaler 06/06/18 [Ventolin HFA Inhaler -] Aspirin Coated [Ecotrin -] 81 mg PO DAILY #30 tablet.ec 06/06/18 Atorvastatin Ca [Lipitor] 80 mg PO HS 11/08/18 Clopidogrel Bisulfate [Plavix] 75 mg PO DAILY 11/08/18 Finasteride 5 mg PO DAILY 11/08/18 Hydralazine HCl 25 mg PO TID 11/08/18 Metoprolol Succinate [Toprol Xl] 50 mg PO DAILY 11/08/18 Pantoprazole Sodium [Protonix] 40 mg PO DAILY 11/08/18 Sevelamer Carbonate 800 mg PO DAILY 11/08/18 Tamsulosin HCl [Flomax] 0.4 mg PO DAILY 11/08/18 Budesonide [Pulmicort 0.25 mg -] 1 neb PO BID 07/28/19 Calcitriol [Calcitriol -] 3 cap PO DAILY 07/28/19 Diphenhydramine [Benadryl Oral 25 mg PO Q6H PRN 07/28/19 Solution -] Docusate Sodium 200 mg PO HS 07/28/19 Furosemide [Lasix] 80 mg PO DAILY 07/28/19 Ipratropium/Albuterol Sulfate 3 ml IH Q6H PRN 07/28/19 [Iprat-Albut 0.5-3(2.5) mg/3 ml] Lidocaine/Prilocaine Cream [Emla -] 1 applic TP DAILY 07/28/19 Melatonin 5 mg PO HS 07/28/19 Polyethylene Glycol 3350 [Miralax 17 gm PO DAILY 07/28/19 (For Daily Use) -] Sennosides [Senna Lax] 8.6 mg PO HS 07/28/19 Tiotropium [place] [Spiriva] 1 inh PO DAILY 07/28/19 REVIEW OF SYSTEMS CONSTITUTIONAL: Absent: fever, chills, diaphoresis, generalized weakness, malaise, loss of appetite, weight change HEENT: Absent: rhinorrhea, nasal congestion, throat pain, throat swelling, difficulty swallowing, mouth swelling, ear pain, eye pain, visual changes CARDIOVASCULAR: Absent: chest pain, syncope, palpitations, irregular heart rate, lightheadedness , peripheral edema RESPIRATORY: Absent: cough, shortness of breath, dyspnea with exertion, orthopnea, wheezing, stridor, hemoptysis GASTROINTESTINAL: Absent: abdominal pain, abdominal distension, nausea, vomiting, diarrhea, constipation, melena, hematochezia GENITOURINARY: Absent: dysuria, frequency, urgency, hesitancy, hematuria, flank pain, genital pain MUSCULOSKELETAL: Absent: myalgia, arthralgia, joint swelling, back pain, neck pain SKIN: Absent: rash, itching, pallor HEMATOLOGIC/IMMUNOLOGIC: Absent: easy bleeding, easy bruising, lymphadenopathy, frequent infections ENDOCRINE: Absent: unexplained weight gain, unexplained weight loss, heat intolerance, cold intolerance NEUROLOGIC: Absent: headache, focal weakness or paresthesias, dizziness, unsteady gait, seizure, mental status changes, bladder or bowel incontinence PSYCHIATRIC: Absent: anxiety, depression, suicidal or homicidal ideation, hallucinations. PHYSICAL EXAMINATION Vital Signs - 24 hr 07/28/19 07/28/19 07/28/19 14:00 14:35 14:53 Temperature 97.9 F Pulse Rate 120 H Pulse Rate [ 105 H Apical] Respiratory 22 H 26 H Rate Blood Pressure 169/95 Blood Pressure 168/98 [Right Arm] O2 Sat by Pulse 100 100 100 Oximetry (%) 07/28/19 07/28/19 07/28/19 16:25 17:35 18:08 Temperature 98.9 F Pulse Rate Pulse Rate [ 113 H Apical] Respiratory 26 H 18 Rate Blood Pressure Blood Pressure 157/87 [Right Arm] O2 Sat by Pulse 100 99 97 Oximetry (%) Gen: AAOx3, NAD HEENT: NCAT, EOMI Neck: no jvd noted Cardio: tachycardic, normal s1s2, no mrg appreciated Pulm: poor air entry, bibasilar crackles (pt states this is his normal lung exam ) Abd: soft, nontender, nondistended Laboratory Results - last 24 hr 07/28/19 07/28/19 07/28/19 15:10 15:10 15:10 WBC 4.8 RBC 3.33 L Hgb 10.5 L Hct 32.2 L MCV 96.7 H MCH 31.6 MCHC 32.7 RDW 18.4 H Plt Count 147 D MPV 8.7 Absolute Neuts (auto) 3.2 Neutrophils % 66.9 Lymphocytes % 18.9 D Monocytes % 10.6 H Eosinophils % 1.6 Basophils % 2.0 Nucleated RBC % 0 Sodium 138 Potassium 5.0 Chloride 101 Carbon Dioxide 30 Anion Gap 7 L BUN 33.3 H Creatinine 6.5 H Est GFR (CKD-EPI)AfAm 8.78 Est GFR (CKD-EPI)NonAf 7.57 Random Glucose 93 Calcium 9.7 Total Bilirubin 0.9 AST 36 ALT 21 Alkaline Phosphatase 143 H Creatine Kinase 87 Troponin I 0.17 H B-Natriuretic Peptide > 596351.0 H Total Protein 6.4 Albumin 3.7 ASSESSMENT/PLAN: 78 yom with PMHx of ESRD on HD (MWF), CAD s/p CABG 2017,s/p PCI (x4?), HTN, HLD , ETOH abuse, COPD (prior heavy smoker) admitted with dyspnea Acute dyspnea -O2 sat stable in ED -tachypnic -crackles on exam -poor air movement -? contribution from CHF with known heart failure, tachycardia with flutter, COPD -lasix 80 IVP, xopanex (tachycardic), solumedrol -NIPPV prn #CHF -? contribution of ?new onset flutter (no documented hx here) -lasix, cardizem -daily weight -I&O #Elevated troponin, -likely demand mediated type II NSTEMI rather than ACS -Hep ggt -trend -Cardio #Acute COPD exacerbation -?recent URI like illness -Pt describes some increase in a chronic cough (nonproductive) #ESRD on HD (MWF) -HD yest -will be dialyzed today #CAD s/p CABG/PCI (?X4) -c/w ASA #HTN -Hold antihypertensives in advance of HD to allow for rate control agents if needed #HLD -statin Visit type - Emergency Visit Emergency Visit: Yes ED Registration Date: 07/28/19 Care time: The patient presented to the Emergency Department on the above date and was hospitalized for further evaluation of their emergent condition. - New Patient This patient is new to me today: Yes Date on this admission: 07/28/19 - Critical Care Critical Care patient: No ATTENDING PHYSICIAN STATEMENT I saw and evaluated the patient. I reviewed the resident's note and discussed the case with the resident. I agree with the resident's findings and plan as documented. SUBJECTIVE: OBJECTIVE: ASSESSMENT AND PLAN:
[2019-07-28] MEDS ORDERED: methylPREDNISolone NA SUCC 40 MG/1 ML VIAL ONE (19:26)
[2019-07-28] MEDS ORDERED: HEPARIN INFUSION - 25,000 UNITS/500 ML INFUS.BAG IVPB ONE (19:27)
[2019-07-28] MEDS ORDERED: FUROSEMIDE 40 MG/4 ML INJECTABLE VIAL ONE (19:27)
[2019-07-28] MEDS: methylPREDNISolone NA SUCC 40 MG/1 ML VIAL IVPUSH SCH (19:34)
[2019-07-28 20:41] VITALS: BMI 18.5
[2019-07-28] MEDS: CALCIUM (OYSTER SHELL) 500 MG TABLET (FP) PO SCH (21:24)
[2019-07-28] MEDS: LIDOCAINE 2.5%/PRILOCAINE 2.5% (5 Gram/TUBE) TP SCH (21:30)
[2019-07-28] MEDS: BUDESONIDE 0.25 MG/2ML INH SUSP VIAL NEB SCH (21:40)
[2019-07-28] MEDS ORDERED: MELATONIN 5 MG PO SCH (22:00)
[2019-07-28] MEDS ORDERED: DOCUSATE SODIUM 100 MG CAPSULE (FP) PO SCH (22:00)
[2019-07-28] MEDS ORDERED: HEPARIN NA (PORCINE) 5,000 UNITS/ML 1ML VIAL SQ SCH (22:00)
[2019-07-28] MEDS ORDERED: MELATONIN 5 MG TABLETS PO SCH (22:00)
[2019-07-28] MEDS ORDERED: SENNOSIDES 8.6MG TABLET (FP) PO SCH (22:00)
[2019-07-28] MEDS ORDERED: ATORVASTATIN CA 80 MG TABLET (FP) PO SCH (22:00)
[2019-07-29] MEDS ORDERED: ACETAMINOPHEN 325 MG TABLET (FP) PO ONE (00:01)
[2019-07-29] MEDS: methylPREDNISolone NA SUCC 40 MG/1 ML VIAL IVPUSH SCH (02:56)
[2019-07-29 08:10] LABS: BASO % 0.3 % (0-2.0); HEMATOCRIT 31.6 % (35.4-49); HEMOGLOBIN 10.5 GM/dL (11.7-16.9); LYMPH % 9.2 % (8-40); MCH 31.7 pg (25.7-33.7); MCHC 33.1 g/dl (32.0-35.9); MEAN PLT VOLUME 8.7 fl (7.5-11.1); MONO % 1.7 % (3.8-10.2); NEUT % 88.8 % (42.8-82.8); PLATELET COUNT 158 K/MM3 (134-434); RDW 17.8 % (11.9-15.9); WHITE BLOOD COUNT 2.8 K/mm3 (4.0-10.0)
[2019-07-29 08:54] LABS: ALBUMIN 3.4 g/dl (3.4-5.0); BILIRUBIN,TOTAL 0.9 mg/dL (0.2-1); BLOOD UREA NITROGEN 22.6 mg/dL (7-18); CALCIUM 9.1 mg/dL (8.5-10.1); CREATININE 4.8 mg/dL (0.55-1.3); MAGNESIUM 2.3 mg/dL (1.8-2.4); PHOSPHOROUS 2.6 mg/dL (2.5-4.9); POTASSIUM 4.7 mmol/L (3.5-5.1); TOT PROT 6.1 g/dl (6.4-8.2)
[2019-07-29] MEDS ORDERED: PT OWN MED DRAWER 7, Y5N ONE (09:14)
[2019-07-29] MEDS: BUDESONIDE 0.25 MG/2ML INH SUSP VIAL NEB SCH (09:28)
[2019-07-29] MEDS: CALCIUM (OYSTER SHELL) 500 MG TABLET (FP) PO SCH (09:41)
[2019-07-29] MEDS: LIDOCAINE 2.5%/PRILOCAINE 2.5% (5 Gram/TUBE) TP SCH (09:44)
[2019-07-29] MEDS ORDERED: POLYETHYLENE GLYCOL 3350 119 GM BTL PO SCH (10:00)
[2019-07-29] MEDS ORDERED: ASPIRIN COATED 81 MG TABLET.EC PO SCH (10:00)
[2019-07-29] MEDS ORDERED: FINASTERIDE 5 MG TABLET (FP) PO SCH (10:00)
[2019-07-29] MEDS ORDERED: predniSONE 20 MG TABLET (UD) PO SCH (10:00)
[2019-07-29] MEDS ORDERED: PATIENT'S OWN MEDICATION (NON-FORMULARY) (Tiotropium Bromide [Spiriva] 1 INH) PO SCH (10:00)
[2019-07-29] MEDS ORDERED: PANTOPRAZOLE 40 MG TABLET (FP) PO SCH (10:00)
[2019-07-29] MEDS ORDERED: TIOTROPIUM BROMIDE 2.5 MCG (SPIRIVA) RESPIMAT INHALER IH SCH (10:00)
[2019-07-29] MEDS ORDERED: CALCITRIOL 0.25 MCG CAPSULE (FP) PO SCH (10:00)
[2019-07-29] MEDS ORDERED: FUROSEMIDE 40 MG TABLET (FP) PO SCH (10:00)
[2019-07-29] MEDS ORDERED: TAMSULOSIN HCL 0.4 MG CAP PO SCH (10:00)
[2019-07-29] MEDS ORDERED: CLOPIDOGREL BISULFATE 75 MG TABLET (FP) PO SCH (10:00)
[2019-07-29] MEDS ORDERED: SEVELAMER CARBONATE 800 MG TAB (FP) PO SCH (10:00)
[2019-07-29 10:17] LABS: ANISOCYTOSIS 1+; MACROCYTOSIS 1+; OVALOCYTE 1+
[2019-07-29] MEDS ORDERED: APIXABAN 5 MG TABLET PO SCH (10:30)
[2019-07-29 11:12] LABS: PLATELET ESTIMATE ADEQUATE
[2019-07-29 13:00] VITALS: TEMP 98.2
--- NOTE | 2019-07-29 13:31 | PN ---
Progress Note, Physician History of Present Illness: Pt seen and examined at bedside. He is awake and alert. He feels that his breathing is better than yesterday but he still has SOB. - Current Medication List Current Medications: Active Medications Apixaban (Eliquis -) 5 mg PO BID [facility] Last Admin: 07/29/19 12:34 Dose: 5 mg Aspirin (Ecotrin -) 81 mg PO DAILY [facility] Last Admin: 07/29/19 09:41 Dose: 81 mg Atorvastatin Calcium (Lipitor -) 80 mg PO [facility] Last Admin: 07/28/19 21:24 Dose: 80 mg Budesonide (Pulmicort 0.25 Mg Nebulizer -) 1 amp NEB BID [facility] Last Admin: 07/29/19 09:28 Dose: 1 amp Calcitriol (Rocaltrol -) 0.75 mcg PO DAILY [facility] Last Admin: 07/29/19 09:43 Dose: 0.75 mcg Calcium Carbonate (Os-Reuben 500mg -) 500 mg PO BID [facility] Last Admin: 07/29/19 09:41 Dose: 500 mg Clopidogrel Bisulfate (Plavix -) 75 mg PO DAILY [facility] Last Admin: 07/29/19 09:42 Dose: 75 mg Diphenhydramine HCl (Benadryl Oral Solution -) 25 mg PO Q6H PRN PRN Reason: COUGH Docusate Sodium (Colace -) 200 mg PO [facility] Last Admin: 07/28/19 21:24 Dose: 200 mg Finasteride (Proscar -) 5 mg PO DAILY [facility] Last Admin: 07/29/19 09:42 Dose: 5 mg Furosemide (Lasix -) 80 mg PO DAILY [facility] Last Admin: 07/29/19 09:42 Dose: 80 mg Hydralazine HCl (Apresoline -) 25 mg PO TID [facility] Sodium Chloride (Normal Saline -) 250 mls @ 3,000 mls/hr IV PRN PRN PRN Reason: Hypotension during Dialysis Stop: 07/29/19 17:32 Heparin Sodium/Dextrose (Heparin Infusion -) 25,000 units in 500 mls @ 20 mls/ hr IVPB TITR [facility]; Protocol Last Admin: 07/28/19 19:33 Dose: 1,000 units/hr, 20 mls/hr Levalbuterol HCl (Xopenex) 0.31 mg IH Q8H PRN PRN Reason: ASTHMA Last Admin: 07/28/19 22:09 Dose: 0.31 mg Lidocaine/Prilocaine (Emla -) 1 applic TP DAILY [facility] Last Admin: 07/29/19 09:44 Dose: 1 applic Melatonin (Melatonin) 5 mg PO HS [facility] Last Admin: 07/28/19 21:24 Dose: 5 mg Metoprolol Succinate (Toprol Xl -) 50 mg PO DAILY [facility] Last Admin: 07/29/19 09:42 Dose: 50 mg Pantoprazole Sodium (Protonix -) 40 mg PO DAILY [facility] Last Admin: 07/29/19 09:42 Dose: 40 mg Polyethylene Glycol (Miralax (For Daily Use) -) 17 gm PO DAILY [facility] Last Admin: 07/29/19 09:42 Dose: 17 gm Prednisone (Deltasone -) 60 mg PO DAILY [facility] Last Admin: 07/29/19 09:42 Dose: 60 mg Senna (Senna -) 2 tab PO HS [facility] Last Admin: 07/28/19 21:23 Dose: 2 tab Sevelamer Carbonate (Renvela -) 800 mg PO DAILY [facility] Last Admin: 07/29/19 09:43 Dose: 800 mg Tamsulosin HCl (Flomax -) 0.4 mg PO DAILY [facility] Last Admin: 07/29/19 09:42 Dose: 0.4 mg Tiotropium [place] (Spiriva Respimat) 2 puff IH DAILY [facility] - Objective Vital Signs: Vital Signs Temperature 98.2 F 07/29/19 12:25 Pulse Rate 78 07/29/19 13:00 Respiratory Rate 18 07/29/19 13:00 Blood Pressure 164/84 07/29/19 13:00 O2 Sat by Pulse Oximetry (%) 98 07/28/19 21:45 Constitutional: Yes: Calm Eyes: Yes: Conjunctiva Clear HENT: Yes: Atraumatic Neck: Yes: Supple Cardiovascular: Yes: S1, S2 Respiratory: Yes: On Nasal O2 Gastrointestinal: Yes: Normal Bowel Sounds, Soft Genitourinary: Yes: WNL Musculoskeletal: Yes: WNL Edema: Yes Edema: LLE: Trace, RLE: Trace Neurological: Yes: Oriented Psychiatric: Yes: Oriented Labs: CBC, BMP 07/29/19 06:03 07/29/19 06:03 Problem List - Problems (1) Leg edema Code(s): R60.0 - LOCALIZED EDEMA (2) ESRD (end stage renal disease) Code(s): N18.6 - END STAGE RENAL DISEASE (3) Peripheral vascular disease Code(s): I73.9 - PERIPHERAL VASCULAR DISEASE, UNSPECIFIED (4) CHF exacerbation Code(s): I50.9 - HEART FAILURE, UNSPECIFIED Qualifiers: Heart failure type: unspecified Qualified Code(s): I50.9 - Heart failure, unspecified Assessment/Plan Current Medications Generic Name Dose Route Start Last Admin Trade Name Freq PRN Reason Stop Dose Admin Apixaban 5 mg 07/29/19 10:30 07/29/19 12:34 Eliquis - PO 5 mg BID TL Administration Aspirin 81 mg 07/29/19 10:00 07/29/19 09:41 Ecotrin - PO 81 mg DAILY TL Administration Atorvastatin Calcium 80 mg 07/28/19 22:00 07/28/19 21:24 Lipitor - PO 80 mg HS TL Administration Budesonide 1 amp 07/28/19 22:00 07/29/19 09:28 Pulmicort 0.25 Mg Nebulizer - NEB 1 amp BID TL Administration Calcitriol 0.75 mcg 07/29/19 10:00 07/29/19 09:43 Rocaltrol - PO 0.75 mcg DAILY TL Administration Calcium Carbonate 500 mg 07/28/19 22:00 07/29/19 09:41 Os-Reuben 500mg - PO 500 mg BID TL Administration Clopidogrel Bisulfate 75 mg 07/29/19 10:00 07/29/19 09:42 Plavix - PO 75 mg DAILY TL Administration Diphenhydramine HCl 25 mg 07/28/19 18:17 Benadryl Oral Solution - PO Q6H PRN COUGH Docusate Sodium 200 mg 07/28/19 22:00 07/28/19 21:24 Colace - PO 200 mg HS TL Administration Finasteride 5 mg 07/29/19 10:00 07/29/19 09:42 Proscar - PO 5 mg DAILY TL Administration Furosemide 80 mg 07/29/19 10:00 07/29/19 09:42 Lasix - PO 80 mg DAILY TL Administration Hydralazine HCl 25 mg 07/29/19 14:00 Apresoline - PO TID TL Sodium Chloride 250 mls @ 3,000 mls/hr 07/28/19 17:32 Normal Saline - IV 07/29/19 17:32 PRN PRN Hypotension during Dialysis Heparin Sodium/Dextrose 25,000 units in 500 mls @ 20 mls/hr 07/28/19 18:30 19:33 Heparin Infusion - IVPB 1,000 units/hr TITR TL 20 mls/hr Administration Protocol 1,000 UNITS/HR Levalbuterol HCl 0.31 mg 07/28/19 18:25 07/28/19 22:09 Xopenex IH 0.31 mg Q8H PRN Administration ASTHMA Lidocaine/Prilocaine 1 applic 07/29/19 10:00 07/29/19 09:44 Emla - TP 1 applic DAILY TL Administration Melatonin 5 mg 07/28/19 22:00 07/28/19 21:24 Melatonin PO 5 mg HS TL Administration Metoprolol Succinate 50 mg 07/29/19 10:00 07/29/19 09:42 Toprol Xl - PO 50 mg DAILY TL Administration Pantoprazole Sodium 40 mg 07/29/19 10:00 07/29/19 09:42 Protonix - PO 40 mg DAILY TL Administration Polyethylene Glycol 17 gm 07/29/19 10:00 07/29/19 09:42 Miralax (For Daily Use) - PO 17 gm DAILY TL Administration Prednisone 60 mg 07/29/19 10:00 07/29/19 09:42 Deltasone - PO 60 mg DAILY TL Administration Senna 2 tab 07/28/19 22:00 07/28/19 21:23 Senna - PO 2 tab HS TL Administration Sevelamer Carbonate 800 mg 07/29/19 10:00 07/29/19 09:43 Renvela - PO 800 mg DAILY TL Administration Tamsulosin HCl 0.4 mg 07/29/19 10:00 07/29/19 09:42 Flomax - PO 0.4 mg DAILY TL Administration Tiotropium [place] 2 puff 07/29/19 10:00 Spiriva Respimat IH DAILY TL Impression 1. ESRD 2. anemia 3. CAD 4. chf 5. hx etoh abuse 6. active smoker 7. non compliance 8. HTN 9. fluid overload Plan - will dialyze today - will UF more volume - renal diet - discussed compliance - emla cream before HD - will follow
[2019-07-29] MEDS ORDERED: hydrALAZINE HCL 25 MG TABLET (FP) PO SCH (14:00)
[2019-07-29] MEDS ORDERED: SODIUM CHLORIDE 250 ML IV PRN (14:08)
--- NOTE | 2019-07-29 14:59 | PN ---
Teaching Attending Note Name of Resident: Jose Alejandro Poe ATTENDING PHYSICIAN STATEMENT I saw and evaluated the patient. I reviewed the resident's note and discussed the case with the resident. I agree with the resident's findings and plan as documented. Seen and examined; no new complaints. Patient may be discharged post HD per conversation with nephrology. I spoke to [facility] ER MD; she reveals to me that patient actually is on eliquis and was recently seen within 1 month in their facility. He has a rn ent through their facility who saw him in consult. His symptoms have improved. Fluid removal with HD (MWF). Counseled extensively by resident and self regarding medication and HD compliance. He did endorse some JAIMES with slight cough; this could be consistent with COPD exacerbation. He will complete a 5-day course of prednisone and be discharged on his home inhalers. He had his home metoprolol succinate this AM and was rate controlled with it. Tachycardic overnight as for some reason his home BB was held despite him being here for a flutter. Old echo reviewed; completed within 12 months. LAE noted, and this reflects his known diagnosis of a flutter with RVR. Will need to obtain old records from [facility] to complete our chart and send them our records. Encouraged patient to pursue further care at one facility. VS, labs, imaging reviewed NAD, AAO, resting in bed NC AT EOMI PERRLA Irregular but normal rate, s1/2 Lungs CTAB CN2-12 wnl, no fnd Echo 10/2018 reviewed; LVEF wnl, LAE noted, mild valvular disease All imaging and lab studies from this admission reviewed ASSESSMENT AND PLAN: Overall he was admitted for aflutter with RVR (on home eliquis). Tachycardia likely related to fluid overload and resolved completely after HD when he had his home medication. No further tachycardia observed on telemetry. Asymptomatic at time of DC. PO pred for COPD exacerbation, but presenting SOB was 2/2 fluid overload with diastolic CHF underlied by a history of ESRD. His problems include: -Aflutter on eliquis, metoprolol succinate -ESRD on MWF HD -CAD on ASA, plavix -COPD exacerbation; continue home inhalers, 5 day prednisone burst, and followup with pulmonary medicine/PFTs -Fluid overload 2/2 ESRD/D-CHF Followup -PCP: 3-5 days -CV: 1-2 weeks (followup with his prior CV from [facility]) -Renal: HD as scheduled MWF with followup in clinic per their service within 1 month -Pulmonary: PRN; he needs to complete OP PFTs. Should see Dr. Gomes Full Code 33 minutes in DC planning
[2019-07-29] MEDS ORDERED: EPOETIN ALFA 2,000 UNIT/1 ML VIAL IVPUSH ONE (15:00)
[2019-07-29 15:13] VITALS: PULSE 80
[2019-07-29 15:53] VITALS: BP 151/78
--- NOTE | 2019-07-29 18:41 | DS ---
Physical Exam: SUBJECTIVE: Patient seen and examined at bedside. No complaints. OBJECTIVE: Vital Signs Period Temp Pulse Resp BP Sys/Aparicio Pulse Ox Last 24 Hr 97.4 F-98.5 F 78-120 18-24 133-177/66-112 98-100 PHYSICAL EXAM Gen: AAOx3, NAD HEENT: NCAT, EOMI Neck: no jvd noted Cardio: tachycardic, normal s1s2, no mrg appreciated Pulm: cta b/l Abd: soft, nontender, nondistended LABS Laboratory Results - last 24 hr 07/29/19 07/29/19 07/29/19 00:09 00:09 06:03 WBC 2.8 L RBC 3.30 L Hgb 10.5 L Hct 31.6 L MCV 96.0 MCH 31.7 MCHC 33.1 RDW 17.8 H Plt Count 158 MPV 8.7 Absolute Neuts (auto) 2.5 Neutrophils % 88.8 H D Neutrophils % (Manual) 92.9 H D Band Neutrophils % 0.0 Lymphocytes % 9.2 D Lymphocytes % (Manual) 6.1 L D Monocytes % 1.7 L D Monocytes % (Manual) 1 L D Eosinophils % 0.0 D Eosinophils % (Manual) 0.0 D Basophils % 0.3 Basophils % (Manual) 0.0 Myelocytes % (Man) 0 Promyelocytes % (Man) 0 Blast Cells % (Manual) 0 Nucleated RBC % 0 Metamyelocytes 0 Hypochromia 0 Platelet Estimate Adequate Polychromasia 1+ Poikilocytosis 0 Anisocytosis 1+ Microcytosis 0 Macrocytosis 1+ Ovalocytes 1+ PTT (Actin FS) 52.6 H Sodium Potassium Chloride Carbon Dioxide Anion Gap BUN Creatinine Est GFR (CKD-EPI)AfAm Est GFR (CKD-EPI)NonAf Random Glucose Calcium Phosphorus Magnesium Total Bilirubin AST ALT Alkaline Phosphatase Creatine Kinase Troponin I 0.18 H Total Protein Albumin TSH 07/29/19 07/29/19 07/29/19 06:03 06:03 06:03 WBC RBC Hgb Hct MCV MCH MCHC RDW Plt Count MPV Absolute Neuts (auto) Neutrophils % Neutrophils % (Manual) Band Neutrophils % Lymphocytes % Lymphocytes % (Manual) Monocytes % Monocytes % (Manual) Eosinophils % Eosinophils % (Manual) Basophils % Basophils % (Manual) Myelocytes % (Man) Promyelocytes % (Man) Blast Cells % (Manual) Nucleated RBC % Metamyelocytes Hypochromia Platelet Estimate Polychromasia Poikilocytosis Anisocytosis Microcytosis Macrocytosis Ovalocytes PTT (Actin FS) 44.7 H Sodium 136 Potassium 4.7 Chloride 97 L Carbon Dioxide 30 Anion Gap 9 BUN 22.6 H Creatinine 4.8 H Est GFR (CKD-EPI)AfAm 12.66 Est GFR (CKD-EPI)NonAf 10.93 Random Glucose 170 H Calcium 9.1 Phosphorus 2.6 Magnesium 2.3 Total Bilirubin 0.9 AST 24 ALT 19 Alkaline Phosphatase 138 H Creatine Kinase 90 Troponin I 0.14 H Total Protein 6.1 L Albumin 3.4 TSH 0.48 HOSPITAL COURSE: Date of Admission:07/28/19 Date of Discharge: 07/29/19 Pt is a 78M PMH ESRD on HD (MWF; followed by Dr. Mei) with somewhat poor compliance, CAD s/p quintuple bypass (2017) , decompensated CHF, and HLD who presented to ED after episode of SOB in [facility]. He was there for pulmonary function testing and became very short of breath. He had received half his normal dialysis session the previous day. He was found to be in atrial flutter in the emergency department. He was admitted and received dialysis. He was dialyzed several times during his stay and his flutter resolved. A call placed to [facility] revealed that he had been to that facility recently with a very similar presentation and had received the relevant workup. He normally follows with his medical team there. His chronic medical problems were managed with home medications. Home Medication List Medication Instructions Recorded Confirmed Type Atorvastatin Ca [Lipitor] 80 mg PO HS 11/08/18 07/28/19 History Clopidogrel Bisulfate [Plavix] 75 mg PO DAILY 11/08/18 07/28/19 History Finasteride 5 mg PO DAILY 11/08/18 07/28/19 History Hydralazine HCl 25 mg PO TID 11/08/18 07/28/19 History Metoprolol Succinate [Toprol Xl] 50 mg PO DAILY 11/08/18 07/28/19 History Pantoprazole Sodium [Protonix] 40 mg PO DAILY 11/08/18 07/28/19 History Sevelamer Carbonate 800 mg PO DAILY 11/08/18 07/28/19 History Tamsulosin HCl [Flomax] 0.4 mg PO DAILY 11/08/18 07/28/19 History Budesonide [Pulmicort 0.25 mg 1 neb PO BID 07/28/19 07/28/19 History Nebulizer -] Calcitriol [Calcitriol -] 3 cap PO DAILY 07/28/19 07/28/19 History Diphenhydramine [Benadryl 12.5 25 mg PO Q6H PRN 07/28/19 07/28/19 History MG/5 ML Oral Solution -] Docusate Sodium 200 mg PO HS 07/28/19 07/28/19 History Furosemide [Lasix] 80 mg PO DAILY 07/28/19 07/28/19 History Ipratropium/Albuterol Sulfate 3 ml IH Q6H PRN 07/28/19 07/28/19 History [Iprat-Albut 0.5-3(2.5) mg/3 ml] Lidocaine/Prilocaine Cream 1 applic TP DAILY 07/28/19 07/28/19 History [Lidocaine-Prilocaine Cream -] Melatonin 5 mg PO HS 07/28/19 07/28/19 History Polyethylene Glycol 3350 [Miralax 17 gm PO DAILY 07/28/19 07/28/19 History 119 gm Btl -] Sennosides [Senna Lax] 8.6 mg PO HS 07/28/19 07/28/19 History Tiotropium [place] [Spiriva] 1 inh PO DAILY 07/28/19 07/28/19 History Minutes to complete discharge: 30 Discharge Summary Reason For Visit: CHF END STAGE RENAL DISEASE Condition: Improved - Instructions Diet, Activity, Other Instructions: You were in the hospital because of fluid overload. You need to follow up with the following doctors: Primary Care doctor within 3-[address] Mei, nephrology, within 1 week Make sure you follow up with your heel burnisher within 1 week. If you cannot reach your heel burnisher, you are being given the contact information for a heel burnisher from this facility. Dr. Cuadra Make sure you follow up with your wind turbine performance engineer within 1 week. If you cannot reach your wind turbine performance engineer you are being given the contact information for a wind turbine performance engineer from this facility. Dr. Gomes You are being sent home with a course of prednisone. Take 60mg by mouth daily for 5 days. You need to continue taking your other home medications. If your symptoms get worse, you need to call your doctor or return to the emergency department. Referrals: Jonathan Gomes MD [Staff Physician] - Andi Cuadra MD [Staff Physician] - Nicole Mei MD [Staff Physician] - 1 Week Disposition: HOME - Home Medications Comprehensive Discharge Medication List: Ambulatory Orders Calcium (Oyster Shell) [Os-Reuben 500MG -] 500 mg PO BID #60 tablet 03/22/16 Albuterol Sulfate Inhaler - [Ventolin HFA Inhaler -] 2 puff IH Q4H PRN #2 inhaler 06/06/18 Aspirin Coated [Ecotrin -] 81 mg PO DAILY #30 tablet.ec 06/06/18 Atorvastatin Ca [Lipitor] 80 mg PO HS 11/08/18 Clopidogrel Bisulfate [Plavix] 75 mg PO DAILY 11/08/18 Finasteride 5 mg PO DAILY 11/08/18 Hydralazine HCl 25 mg PO TID 11/08/18 Metoprolol Succinate [Toprol Xl] 50 mg PO DAILY 11/08/18 Pantoprazole Sodium [Protonix] 40 mg PO DAILY 11/08/18 Sevelamer Carbonate 800 mg PO DAILY 11/08/18 Tamsulosin HCl [Flomax] 0.4 mg PO DAILY 11/08/18 Budesonide [Pulmicort 0.25 mg Nebulizer -] 1 neb PO BID 07/28/19 Calcitriol [Calcitriol -] 3 cap PO DAILY 07/28/19 Diphenhydramine [Benadryl 12.5 MG/5 ML Oral Solution -] 25 mg PO Q6H PRN Docusate Sodium 200 mg PO HS 07/28/19 Furosemide [Lasix] 80 mg PO DAILY 07/28/19 Ipratropium/Albuterol Sulfate [Iprat-Albut 0.5-3(2.5) mg/3 ml] 3 ml IH Q6H PRN 07/28/19 Lidocaine/Prilocaine Cream [Lidocaine-Prilocaine Cream -] 1 applic TP DAILY Melatonin 5 mg PO HS 07/28/19 Polyethylene Glycol 3350 [Miralax 119 gm Btl -] 17 gm PO DAILY 07/28/19 Sennosides [Senna Lax] 8.6 mg PO HS 07/28/19 Tiotropium [place] [Spiriva] 1 inh PO DAILY 07/28/19 Apixaban [Eliquis -] 5 mg PO BID tablet 07/29/19 predniSONE [Deltasone -] 60 mg PO DAILY #5 tablet 07/29/19 This patient is new to me today: No Emergency Visit: No Critical Care patient: No - Discharge Referral Referred to [facility] No ATTENDING PHYSICIAN STATEMENT I saw and evaluated the patient. I reviewed the resident's note and discussed the case with the resident. I agree with the resident's findings and plan as documented. SUBJECTIVE: OBJECTIVE: ASSESSMENT AND PLAN:
--- NOTE | 2019-07-30 07:07 | ECHO ---
Name: MARIA TERESA BYRD N Exam:Adult Echocardiogram Study Date: 07/29/2019 08:39 AM Age: 78 yrs Reason For Study: CHF Height: 74 in Weight: 150 lb BSA: 1.9 m2 MMode/2D Measurements & Calculations IVSd: 1.0 cm Ao root diam: 2.8 cm LVIDd: 5.3 cm LA dimension: 4.9 cm LVIDs: 3.9 cm LVPWd: 1.1 cm EDV(Teich): 134.9 ml LVOT diam: 2.0 cm ESV(Teich): 66.5 ml LAV (MOD-bp): 109.0 ml Doppler Measurements & Calculations MV E max corey: 132.0 cm/sec Ao V2 max: 165.6 cm/sec MV A max corey: 58.8 cm/sec Ao max P.0 mmHg MV E/A: 2.2 MV dec time: 0.09 sec BERNADETTE(V,D): 2.0 cm2 LV V1 max P.7 mmHg MR max corey: 259.0 cm/sec LV V1 max: 108.7 cm/sec MR max P.8 mmHg TR max corey: 284.4 cm/sec PA V2 max: 127.6 cm/sec TR max P.4 mmHg PA max P.5 mmHg Med Peak E' Corey: 7.0 cm/sec PI Vmax: 168.3 cm/sec Med E/e': 19.0 Lat Peak E' Corey: 10.8 cm/sec Lat E/e': 12.3 Procedure A two-dimensional transthoracic echocardiogram with color flow and Doppler was performed. Left Ventricle The left ventricle is grossly normal size. Left ventricular systolic function is mildly reduced. The transmitral spectral Doppler flow pattern is suggestive of restrictive physiology. There is mild glob al hypokinesis of the left ventricle. Septal motion is consistent with conduction abnormality. Right Ventricle The right ventricle is normal in size and function. Atria The left atrium is moderately dilated. The right atrium is moderately dilated. The atrial septum is aneurysmal. Mitral Valve There is mild mitral valve thickening. There is no mitral valve stenosis. There is mild mitral regurg itation. Tricuspid Valve There is mild tricuspid valve thickening. There is no tricuspid stenosis. There is moderate tricuspid regurgitation. Right ventricular systolic pressure is elevated at 40-50mmHg. Aortic Valve The aortic valve is normal in structure and function. No hemodynamically significant valvular aortic stenosis. No aortic regurgitation is present. Pulmonic Valve The pulmonic valve is not well visualized. There is no pulmonic valvular stenosis. Mild pulmonic valv ular regurgitation. Great Vessels The aortic root is normal size. Pericardium/Pleura There is no pericardial effusion. Interpretation Summary The left atrium is moderately dilated. The right atrium is moderately dilated. The left ventricle is grossly normal size. Right ventricular systolic pressure is elevated at 40-50mmHg. Septal motion is consistent with conduction abnormality. There is moderate tricuspid regurgitation. Left ventricular systolic function is mildly reduced. There is mild global hypokinesis of the left ventricle. There is mild mitral regurgitation. The transmitral spectral Doppler flow pattern is suggestive of restrictive physiology. MD Leonides Adrian 07/29/2019 10:44 AM
== END 2019-07-29 16:31 | disposition home or self-care (01) | DRG 291 ==
LOC: JER 13:59 → JERBED 17:20 → J4W 20:06
PROVIDERS: ADMIT Hospitalist; ATTEND Internal Medicine
PROC: 5A1D70Z Performance of Urinary Filtration, Intermittent, Less than 6 Hours Per Day (ICD-10-PCS; principal; 2019-07-28)
DX: I13.2 Hypertensive heart and chronic kidney disease with heart failure and with stage 5 chronic kidney disease, or end stage renal disease (principal); N18.6 End stage renal disease; J96.01 Acute respiratory failure with hypoxia; I50.43 Acute on chronic combined systolic (congestive) and diastolic (congestive) heart failure; J44.1 Chronic obstructive pulmonary disease with (acute) exacerbation; I48.92 Unspecified atrial flutter; Z99.2 Dependence on renal dialysis; I25.10 Atherosclerotic heart disease of native coronary artery without angina pectoris; Z98.61 Coronary angioplasty status; Z95.1 Presence of aortocoronary bypass graft; E78.5 Hyperlipidemia, unspecified; K21.9 Gastro-esophageal reflux disease without esophagitis; R00.0 Tachycardia, unspecified; E87.70 Fluid overload, unspecified; D64.9 Anemia, unspecified; F17.210 Nicotine dependence, cigarettes, uncomplicated
CPT/HCPCS: 36415; 71045-TC-FY; 80053; 82550; 83735; 83880; 84100; 84436; 84443; 84484; 85025; 85730; 86803; 87340; 93005; 93010; 93306-TC; 94640; 99285-25; J0885; J1644